=== PATIENT | female | born 1945 | race Caucasian/White ===

== ENCOUNTER → 2024-04-20 06:26 | Day surgery (SDC) | payer MEDICARE, OTHER, SELFPAY ==
[2024-04-20 12:57] LABS: Glucose - Point of Care 118 mg/dl (70-99)
== END ==
LOC: GI 06:26
PROVIDERS: ATTENDING PHYSICIAN Internal Medicine
DX: D12.2 Benign neoplasm of ascending colon (principal); K55.20 Angiodysplasia of colon without hemorrhage; K64.5 Perianal venous thrombosis; K64.8 Other hemorrhoids; K63.89 Other specified diseases of intestine; K92.1 Melena
CPT/HCPCS: 45385; 88305; 82962

== ENCOUNTER → 2024-08-26 11:07 | Outpatient (REF) | payer MEDICARE, OTHER, SELFPAY | LOC: PAVMRI 11:07 | PROVIDERS: ATTENDING PHYSICIAN Physician Assistant Surgical; FAMILY PHYSICIAN Family Medicine | DX: M25.562 Pain in left knee (principal) | CPT/HCPCS: 73721 ==

== ENCOUNTER → 2024-12-28 12:10 | Outpatient (REF) | payer MEDICARE, OTHER, SELFPAY | LOC: RAD 12:10 | PROVIDERS: ATTENDING PHYSICIAN Physician Assistant; FAMILY PHYSICIAN Family Medicine | DX: R05.3 Chronic cough (principal) | CPT/HCPCS: 71046 ==

== ENCOUNTER 2025-02-08 00:05 | Inpatient (IN) | payer MEDICARE, OTHER, SELFPAY ==
[2025-02-07 15:45] VITALS: BP 121/70
[2025-02-07 16:11] LABS: Hematocrit 27.4 % (37.0-47.0); Hemoglobin 8.3 g/dL (12.0-16.0); Mean Corp Hgb Conc. 30.3 g/dL (33.0-37.0); Mean Corpuscular Volume 79.9 fL (81.0-99.0); Nucleated Red Blood Cells % 0 %; Platelet Count 228 10^3/uL (130-400); Red Cell Dist. Width 17.0 % (11.5-14.5)
[2025-02-07 16:16] LABS: INR 1.23; PT 16.1 Sec (11.4-14.6)
[2025-02-07 16:20] LABS: ALT (SGPT) 11 U/L (0-35); AST (SGOT) 16 U/L (14-36); Albumin 4.1 g/dl (3.5-5.0); Alkaline Phosphatase 68 U/L (38-126); Blood Urea Nitrogen 20 mg/dl (7-17); Calcium 9.0 mg/dl (8.4-10.2); Carbon Dioxide 30 mmol/L (22-30); Chloride 106 mmol/L (98-107); Glucose 140 mg/dl (70-99); Potassium 4.0 mmol/L (3.5-5.1); Sodium 139 mmol/L (135-145); Total Protein 6.7 g/dl (6.3-8.2); eGFR > 60.00
[2025-02-07 16:31] LABS: Troponin I < 0.012 ng/ml
--- NOTE | 2025-02-07 20:51 | ED.GENMED ---
History of Present Illness
<Alyssa Finnegan PA-C - Last Filed: 02/08/25 13:12>
General
Chief Complaint: Heart Rate Problem
Source: patient
Exam Limitations: none
Time Seen by Provider: 02/07/25 19:37
Nursing documentation reviewed up to this point in time: agreed with
History of Present Illness
History of Present Illness:
Patient is a 79-year-old female who presents to the emergency department for evaluation of palpitations and left-sided chest discomfort. She reports symptoms have been intermittent throughout today. She describes feeling a pounding in her left
chest and has an intermittent pain that goes from her left chest into her left arm. Patient feels that she has been much more short of breath with little exertion recently. She denies any lightheadedness, diaphoresis. She denies any back pain.
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
After speaking with her engineering professionals she was referred to the emergency department for further evaluation today.
Of note�patient states she has been experiencing the symptoms for a few months now intermittently. She did take a relatively lengthy trip to [place] approximately 2 months ago and experienced rectal bleeding from hemorrhoids. However�at that
time�she was seen in the hospital where she was found to not be anemic and the bleeding is since resolved. She denies any hematochezia or melena. She denies any hemoptysis or hematemesis.
Patient is compliant with Eliquis.
Past History
<Alyssa Finnegan PA-C - Last Filed: 02/08/25 13:12>
Past History
ED Past Medical History: Arrthythmia (Atrial fibrillation), GERD, Hypercholesterolemia, NIDDM and Other (Trigeminal neuralgia, arthritis)
ED Past Surgical History: Cholecystectomy, Gynecological (Tubal ligation) and Orthopedic
Social History
Tobacco: Non-smoker
Alcohol: None
Drug: None
Personal:
Living: with family
Review of Systems
<Alyssa Finnegan PA-C - Last Filed: 02/08/25 13:12>
Review of Systems
Allergies reviewed?: Yes
All Other Systems: ROS reviewed and negative except as documented in HPI and ROS
Phy Exam
<Alyssa Finnegan PA-C - Last Filed: 02/08/25 13:12>
Physical Exam
Physical Exam:
Vitals: Patient's vital signs are stable. Afebrile
General: Patient is well appearing, no acute distress. Nontoxic appearing
Skin: Warm and dry, no rashes or lesions
Head: Normocephalic, atraumatic
Eyes: Sclera nonicteric. EOMs intact. No nystagmus.
Throat: Protecting airway
Neck: Normal ROM, no cervical spine tenderness, no meningismus
Cardiac: Regular rate and rhythm, no murmurs.
Pulm: Normal respiratory effort, no wheezes, rales, rhonchi heard on exam
.
Abdomen: Abdomen soft and nontender
Rectal: External hemorrhoids noted with no evidence of thrombosis. No stool in vault. No active bleeding
Extremities: 1+ pitting edema bilateral lower extremities. 2+ palpable DP pulses bilaterally
Neuro: AAOx3. Grossly intact.
Psychiatric: Normal affect.
Course
<Alyssa Finnegan PA-C - Last Filed: 02/08/25 13:12>
Orders/Labs/Results
Orders:
Orders
02/07/25 15:45
Electrocardiogram (*1) Urgent
Reason for Study: Atrial Fibrillation
EKG- Treatment ONCE
02/07/25 15:59
Complete Blood Count/With Diff Urgent
Comprehensive Metabolic Panel Urgent
NT-proBNP Urgent
Prothrombin Time Urgent
TSH Reflex To Free T4 Urgent
Comment: ADD ON
Troponin I Urgent
02/07/25 20:29
Electrocardiogram (*1) Urgent
Reason for Study: Chest Pain
EKG- Treatment ONCE
02/07/25 20:30
Add On- LAB Urgent
Tests Added?: TSH w/ reflex to T4
Cardiac Monitoring- Treatment ONCE
CR Chest - 2 Views Urgent
Comment:
Reason For Exam: CP, SOB
02/07/25 21:29
Troponin I Urgent
02/07/25 22:27
Complete Blood Count/With Diff Urgent
02/07/25 22:57
Pantoprazole [Protonix IV] 80 mg IV NOW STA
02/07/25 23:00
Flush (0.9% Sodium Chloride) [Flush (Nss)] See Dose Instructions IV PER PROTOCOL
02/07/25 23:41
CARDIOLOGY CONSULT Routine
Consulting Provider: Romeo Swenson
Was physician already notified: No
Reason for consult: chest pain LE swelling
Consult Notification Routine
Specialty to Notify: Cardiology
Date consulting provider notified: 02/08/25
Time consulting provider notified: 07:54
Notified:: Other
Comment: tiger text
02/07/25 23:42
Consult Notification Routine
Specialty to Notify: Gastroenterology
Date consulting provider notified: 02/08/25
Time consulting provider notified: 07:54
Notified:: Other
Comment: tiger text
GASTROINTESTINAL CONSULT Routine
Consulting Provider: Koki Peterson
Was physician already notified: No
Reason for consult: anemia, Hx of hemorrhoidal bleed, gastritis
02/07/25 23:45
Troponin I Q6H
Pantoprazole 80 mg/100 ml Nss [Protonix] 80 mg in 100 ml IV Q10H
02/07/25 23:49
Admit/Transfer Patient As Directed
Co-Sign Provider:
Level of Care: Inpatient admission
Assign to:: Telemetry
Physician / Group: Hospitalist
Diagnosis: chest pain
Reason for Telemetry: Chest Pain syndromes
Date to Stop Telemetry: 02/09/25
Time to Stop Telemetry: 11:00
Reason for Hospitalization: chest pain, anemia
Expected length of stay greater than two midnights?: Yes
ELOS- Estimated Length of Stay in days: 2
I certify the patient meets the requirements for IP care: Yes
PRN Pain Medication Management As Directed
May give lesser potent ordered pain med per pt: Yes
preference::
Protocol:: Medication orders for pain may be administered in a
manner that supports deferring to patient preference
when the pt is:
- Requesting an ordered lesser potent pain medication.
Least to most potent pain medications are defined
as: acetaminophen < NSAID < tramadol < opioids
(morphine, oxycodone, hydromorphone).
- Requesting a lesser dose of the same medication IF
ORDERED.
- Requesting a less intrusive route of administration
if both routes are prescribed by the provider (PO <
IV).
02/07/25 23:51
Code Status As Directed
Resuscitation Status: Full Code
02/08/25
Echo 2D MMode Color/Doppler Routine
Reason for Study: LE swelling
02/08/25 00:55
Acetaminophen [Tylenol] 650 mg PO Q4HPRN PRN
Bisacodyl [Dulcolax] 10 mg RECTAL [id number] PRN
Docusate W/Senna [Senokot-S] 1 tablet PO BIDPRN PRN
Ondansetron Injectable [Zofran] 4 mg IV Q8HPRN PRN
Polyethylene Glycol Powder [Miralax] 17 grams PO DAILYPRN PRN
02/08/25 00:55
Activity As Directed
Activity Level: Out of Bed-Early Mobility
Pneumatic Compression Sleeves As Directed
Type: Knee high
Stool for occult blood [Hemetest Stools] As Directed
Vital Signs As Directed
Frequency: Per unit guidelines
DX Deep Vein Thrombosis Video Routine
02/08/25 06:00
Complete Blood Count/With Diff IN AM
Comprehensive Metabolic Panel IN AM
Ferritin IN AM
Folate IN AM
Iron IN AM
LDH IN AM
Reticulocyte Count IN AM
Total Iron Binding IN AM
Troponin I Q6H
Vitamin B12 IN AM
02/08/25 08:00
Diltiazem Extended Release [Cardizem Cd] 120 mg PO DAILY
Mirabegron Extended Release [Myrbetriq Extended Release] 25 mg PO DAILY
02/08/25 Lunch
NPO
Allow oral meds: Yes
Allow clear liquids: Sips of Clears
NPO with Ice Chips: Yes
02/08/25 22:00
Pravastatin Sodium [Pravachol] 20 mg PO HS
02/09/25 11:00
DC Protocol for Telemetry ONCE
Abnormal Lab Results
02/07/25 02/07/25 02/08/25
15:59 22:27 00:00
RBC 3.43 L 10^6/uL 3.38 L 10^6/uL
(4.20-5.40) (4.20-5.40)
Hgb 8.3 L g/dL 8.0 L g/dL
(12.0-16.0) (12.0-16.0)
Hct 27.4 L % 26.9 L %
(37.0-47.0) (37.0-47.0)
MCV 79.9 L fL 79.6 L fL
(81.0-99.0) (81.0-99.0)
MCH 24.2 L pg 23.7 L pg
(27.0-31.0) (27.0-31.0)
MCHC 30.3 L g/dL 29.7 L g/dL
(33.0-37.0) (33.0-37.0)
RDW 17.0 H % 17.1 H %
(11.5-14.5) (11.5-14.5)
Absolute Monos (auto) 0.7 H 10^3/uL 0.7 H 10^3/uL
(0.1-0.6) (0.1-0.6)
Monocytes % 12.9 H % 12.9 H %
(1.7-9.3) (1.7-9.3)
PT 16.1 H Sec
(11.4-14.6)
BUN 20 H mg/dl
(7-17)
Glucose 140 H mg/dl
(70-99)
Troponin I 0.046 H* D ng/ml
02/07/25 22:27
02/07/25 15:59
Vital Signs
Initial and Last Documented VS:
Initial Vital Signs
Temp Pulse Resp BP Pulse Ox
98.4 F 89 20 121/70 96
02/07/25 15:45 02/07/25 15:45 02/07/25 15:45 02/07/25 15:45 02/07/25 15:45
Last Documented Vital Signs
Temp Pulse Resp BP Pulse Ox
97.6 F 70 16 124/68 95
02/08/25 12:35 02/08/25 12:35 02/08/25 12:35 02/08/25 12:35 02/08/25 11:54
Marcolt;Oj Gutierrez, - Last Filed: 02/08/25 00:21>
Orders/Labs/Results
Orders:
Orders
02/07/25 15:45
Electrocardiogram (*1) Urgent
Reason for Study: Atrial Fibrillation
EKG- Treatment ONCE
02/07/25 15:59
Complete Blood Count/With Diff Urgent
Comprehensive Metabolic Panel Urgent
NT-proBNP Urgent
Prothrombin Time Urgent
TSH Reflex To Free T4 Urgent
Comment: ADD ON
Troponin I Urgent
02/07/25 20:29
Electrocardiogram (*1) Urgent
Reason for Study: Chest Pain
EKG- Treatment ONCE
02/07/25 20:30
Add On- LAB Urgent
Tests Added?: TSH w/ reflex to T4
Cardiac Monitoring- Treatment ONCE
CR Chest - 2 Views Urgent
Comment:
Reason For Exam: CP, SOB
02/07/25 21:29
Troponin I Urgent
02/07/25 22:27
Complete Blood Count/With Diff Urgent
02/07/25 22:57
Pantoprazole [Protonix IV] 80 mg IV NOW STA
02/07/25 23:00
Flush (0.9% Sodium Chloride) [Flush (Nss)] See Dose Instructions IV PER PROTOCOL
02/07/25 23:41
CARDIOLOGY CONSULT Routine
Consulting Provider: Romeo Swenson
Was physician already notified: No
Reason for consult: chest pain LE swelling
Consult Notification Routine
Specialty to Notify: Cardiology
Date consulting provider notified: 02/08/25
Time consulting provider notified: 07:54
Notified:: Other
Comment: tiger text
02/07/25 23:42
Consult Notification Routine
Specialty to Notify: Gastroenterology
Date consulting provider notified: 02/08/25
Time consulting provider notified: 07:54
Notified:: Other
Comment: tiger text
GASTROINTESTINAL CONSULT Routine
Consulting Provider: Koki Peterson
Was physician already notified: No
Reason for consult: anemia, Hx of hemorrhoidal bleed, gastritis
02/07/25 23:45
Troponin I Q6H
Pantoprazole 80 mg/100 ml Nss [Protonix] 80 mg in 100 ml IV Q10H
02/07/25 23:49
Admit/Transfer Patient As Directed
Co-Sign Provider:
Level of Care: Inpatient admission
Assign to:: Telemetry
Physician / Group: Hospitalist
Diagnosis: chest pain
Reason for Telemetry: Chest Pain syndromes
Date to Stop Telemetry: 02/09/25
Time to Stop Telemetry: 11:00
Reason for Hospitalization: chest pain, anemia
Expected length of stay greater than two midnights?: Yes
ELOS- Estimated Length of Stay in days: 2
I certify the patient meets the requirements for IP care: Yes
PRN Pain Medication Management As Directed
May give lesser potent ordered pain med per pt: Yes
preference::
Protocol:: Medication orders for pain may be administered in a
manner that supports deferring to patient preference
when the pt is:
- Requesting an ordered lesser potent pain medication.
Least to most potent pain medications are defined
as: acetaminophen < NSAID < tramadol < opioids
(morphine, oxycodone, hydromorphone).
- Requesting a lesser dose of the same medication IF
ORDERED.
- Requesting a less intrusive route of administration
if both routes are prescribed by the provider (PO <
IV).
02/07/25 23:51
Code Status As Directed
Resuscitation Status: Full Code
02/08/25
Echo 2D MMode Color/Doppler Routine
Reason for Study: LE swelling
02/08/25 00:55
Acetaminophen [Tylenol] 650 mg PO Q4HPRN PRN
Bisacodyl [Dulcolax] 10 mg RECTAL [id number] PRN
Docusate W/Senna [Senokot-S] 1 tablet PO BIDPRN PRN
Ondansetron Injectable [Zofran] 4 mg IV Q8HPRN PRN
Polyethylene Glycol Powder [Miralax] 17 grams PO DAILYPRN PRN
02/08/25 00:55
Activity As Directed
Activity Level: Out of Bed-Early Mobility
Pneumatic Compression Sleeves As Directed
Type: Knee high
Stool for occult blood [Hemetest Stools] As Directed
Vital Signs As Directed
Frequency: Per unit guidelines
DX Deep Vein Thrombosis Video Routine
02/08/25 06:00
Complete Blood Count/With Diff IN AM
Comprehensive Metabolic Panel IN AM
Ferritin IN AM
Folate IN AM
Iron IN AM
LDH IN AM
Reticulocyte Count IN AM
Total Iron Binding IN AM
Troponin I Q6H
Vitamin B12 IN AM
02/08/25 08:00
Diltiazem Extended Release [Cardizem Cd] 120 mg PO DAILY
Mirabegron Extended Release [Myrbetriq Extended Release] 25 mg PO DAILY
02/08/25 Lunch
NPO
Allow oral meds: Yes
Allow clear liquids: Sips of Clears
NPO with Ice Chips: Yes
02/08/25 22:00
Pravastatin Sodium [Pravachol] 20 mg PO HS
02/09/25 11:00
DC Protocol for Telemetry ONCE
Abnormal Lab Results
02/07/25 02/07/25 02/08/25
15:59 22:27 00:00
RBC 3.43 L 10^6/uL 3.38 L 10^6/uL
(4.20-5.40) (4.20-5.40)
Hgb 8.3 L g/dL 8.0 L g/dL
(12.0-16.0) (12.0-16.0)
Hct 27.4 L % 26.9 L %
(37.0-47.0) (37.0-47.0)
MCV 79.9 L fL 79.6 L fL
(81.0-99.0) (81.0-99.0)
MCH 24.2 L pg 23.7 L pg
(27.0-31.0) (27.0-31.0)
MCHC 30.3 L g/dL 29.7 L g/dL
(33.0-37.0) (33.0-37.0)
RDW 17.0 H % 17.1 H %
(11.5-14.5) (11.5-14.5)
Absolute Monos (auto) 0.7 H 10^3/uL 0.7 H 10^3/uL
(0.1-0.6) (0.1-0.6)
Monocytes % 12.9 H % 12.9 H %
(1.7-9.3) (1.7-9.3)
PT 16.1 H Sec
(11.4-14.6)
BUN 20 H mg/dl
(7-17)
Glucose 140 H mg/dl
(70-99)
Troponin I 0.046 H* D ng/ml
02/07/25 22:27
02/07/25 15:59
Vital Signs
Initial and Last Documented VS:
Initial Vital Signs
Temp Pulse Resp BP Pulse Ox
98.4 F 89 20 121/70 96
02/07/25 15:45 02/07/25 15:45 02/07/25 15:45 02/07/25 15:45 02/07/25 15:45
Last Documented Vital Signs
Temp Pulse Resp BP Pulse Ox
97.6 F 70 16 124/68 95
02/08/25 12:35 02/08/25 12:35 02/08/25 12:35 02/08/25 12:35 02/08/25 11:54
<Alyssa Finnegan PA-C - Last Filed: 02/08/25 13:12>
MDM/Problems Addressed
Differential Diagnosis Includes:
Not limited to: Muscle strain, acute coronary syndrome, pericarditis, pneumonia, symptomatic anemia, etc.
MDM/Problems Addressed:
79-year-old female with history as documented presenting with intermittent left chest discomfort and worsening exertional shortness of breath. No clear exertional or pleuritic component to chest discomfort. Patient anticoagulated on Eliquis for
atrial fibrillation. She is hemodynamically stable on arrival. Physical exam as above.
Labs were sent off in triage significant for a new anemia with a hemoglobin of 8.3. Chemistry unremarkable. Initial troponin undetectable with nonischemic EKG. I did perform a rectal exam, although no stool in vault for FOBT. No evidence of active
bleeding on exam.
Given worsening exertional shortness of breath � will plan to trend troponin and check chest x-ray to rule out cardio/pulmonary process. However, given suspected new anemia � concerned that this may be symptomatic anemia. Will closely monitor and
re-assess. Will repeat CBC to confirm anemia.
Update: repeat troponin did elevate to 0.029 although EKG remains nonischemic. Chest x-ray without acute findings.
Hemoglobin decreased slightly to 8.0
At this point � do not suspect cardiac etioogy. Findings most consistent with symptomatic anemia and demand ischemia. Given patient is anticoagulated on Eliquis with unknown source of bleeding � will admit for further monitoring. Blood consent
signed into chart although will hold transfusion at this time. 80 IV Protonix given for possible G.I. source of bleeding. Patient accepted to hospitalist service in stable condition.
Chronic conditions affecting care:
Atrial fibrillation on Eliquis, hypertension, diabetes
Acute Exacerbation and/or Progression of Chronic Illness:
Symptomatic anemia
<Alyssa Finnegan PA-C - Last Filed: 02/08/25 13:12>
*Radiology
Radiology exam reviewed: preliminary read by ED provider (Chest x-ray reviewed by mi-no acute abnormalities) and radiology read reviewed
*Pulse Oximetry
SaO2: 98
Oxygen Mode of Delivery: Room air
Patient hypoxic: no
*EKG
Interpreted by ED Provider?: Yes
EKG Intrepretation Date: 02/07/25
Interpretation: abnormal
Comparison EKG: changes noted
Heart Rate: 79
Rate: normal
Rhythm: sinus
[place]: normal axis
Interval: first degree heart block
QRS Pattern: normal QRS
Ischemia: non-specific ST changes
*Taping Foreman Interpretation
Rate: normal
Interpretation: normal
Heart Rate: 60
Rhythm: sinus
*Critical Care Note
Total Time (30-74mins, 75-104mins- exclusive of procedures): Not Applicable
<Alyssa Finnegan PA-C - Last Filed: 02/08/25 13:12>
Patient Management
Discussion with other providers: Hospitalist
Escalation/DeEscalation of care consider admission/obs:
Admit for suspected symptomatic anemia / further monitoring
ED Attending Note
<Alyssa Finnegan PA-C - Last Filed: 02/08/25 13:12>
-
Portions of this chart may have been created with voice recognition software.� Occasional wrong word or��sound alike� substitutions may have occurred due to the inherent limitations of voice recognition software.
<Oj Gutierrez DO - Last Filed: 02/08/25 00:21>
ED Attending Note
Patient seen and examined by attending physician: Yes
ED Attending Note:
79-year-old female seen in conjunction with the [facility]. I have reviewed and agree with her history and treatment plan. My independent physical exam patient awake and oriented. She is in minimal acute distress. She is to be admitted to the
hospitalist service.
Discharge Plan
Departure
Patient Disposition: Admit
Date of Disposition: 02/07/25
Time of Disposition: 23:20
Presentation/result/management discussed w/ accepting MD/DO: Hospitalist
Discharge Problem:
Symptomatic anemia
Interventions
Interventions:
*Risk Screen - Suicide Last Done: 02/07/25 15:45
*General Assessment Last Done: 02/07/25 15:45
*Neglect/Abuse Screening Last Done: 02/07/25 15:45
*ED- Fall Risk Assessment Last Done: 02/07/25 20:11
*ED COVID-19 Vaccine History Last Done: 02/08/25 00:44
*Nursing Disposition Last Done: 02/08/25 00:44
ED- Cardiac Assessment Last Done: 02/07/25 20:11
ED- Pulmonary Assessment Last Done: 02/07/25 20:11
Discharge Date and Time
Discharge Date/Time: 02/08/25 00:46
[2025-02-07 21:12] VITALS: BP 139/66
[2025-02-07 22:00] VITALS: BP 150/74
[2025-02-07 22:02] LABS: Troponin I 0.029 ng/ml
[2025-02-07 22:34] LABS: Hematocrit 26.9 % (37.0-47.0); Hemoglobin 8.0 g/dL (12.0-16.0); Mean Corp Hgb Conc. 29.7 g/dL (33.0-37.0); Mean Corpuscular Volume 79.6 fL (81.0-99.0); Nucleated Red Blood Cells % 0 %; Platelet Count 213 10^3/uL (130-400); Red Cell Dist. Width 17.1 % (11.5-14.5)
[2025-02-07 22:39] VITALS: BP 139/81
[2025-02-07 23:00] VITALS: BP 148/72
[2025-02-07] MEDS: PROTONIX IV 80 MG IV (23:19)
[2025-02-07] MEDS: PROTONIX 100 IV (23:51)
--- NOTE | 2025-02-07 23:52 | HPS.HSE ---
Family Physician
-
Family Physician: Leonor Griffin MD
Chief Complaint
-
chest pain, LE swelling
History of Present Illness
79yo F with PMHX of Afib on ELiquis, HTN, GERD, hemorrhoids, urinary retention, HLD came with episodes of L chest pain starrted on the day of admission and progressive b/l LE swelling. Found new anemia. PAtient reported being seen by doctor in
back in October 2024 for frequent hemorrhoidal bleeding, but was told that she was not anemic at that time. Colonoscopy recently witgh few polyps removed, EGD >5years ago due to GERD without reported bleeding.
Medical History
Past Medical History
Past Medical History: Reports Other
Additional Past Medical History:
see HPI
Past Surgical History: Reports None
Social History
Tobacco: Non-smoker
Alcohol: None
Drug: None
Family History
Family History: Not pertinent
Allergies / Home Medications
Allergies reflects when Allergies were last updated in [employer].
Home Medications with original date entered in [employer]
Allergy/Medication List:
Allergies
Allergy/AdvReac Type Severity Reaction Status Date / Time
No Known Allergies Allergy Verified 02/07/25 15:54
Home Medications
cholecalciferol (vitamin D3) 50 mcg (2,000 unit) capsule (Vitamin D3) 2,000 unit PO DAILY Supplement 01/14/15
pantoprazole 40 mg tablet,delayed release 40 mg PO DAILY@0700 Gastrointestinal issue 04/16/20
apixaban 5 mg tablet (Eliquis) 5 mg PO BID ##0 08/01/20
acetaminophen 650 mg tablet,extended release 1,300 mg PO TIDPRN PRN pain 11/09/22
amitriptyline 75 mg tablet 75 mg PO HS 11/09/22
diltiazem HCl 120 mg capsule,extended release 24 hr, controlled 120 mg PO DAILY 11/09/22
estradiol 0.01% (0.1 mg/gram) vaginal cream (Estrace) 1 g vaginal [id number] 11/09/22
mirabegron 25 mg tablet,extended release 24 hr (Myrbetriq) 25 mg PO DAILY 11/09/22
pravastatin 20 mg tablet 20 mg PO HS 11/09/22
sennosides 8.6 mg tablet (senna) 2 tab PO PRN PRN Conastipation 11/09/22
Review of Systems
-
A 12 point ROS was completed and negative except as noted: Yes
Constitutional: Reports See HPI
Physical Exam
Vital Signs
Vital Signs
Temp Pulse Resp BP Pulse Ox
98.4 F 89 20 139/81 98
02/07/25 15:45 02/07/25 22:39 02/07/25 22:15 02/07/25 22:39 02/07/25 22:53
Physical Exam
General: Well Developed, Well Nourished and No Apparent Distress
HEENT: NormoCephalic, Anicteric and Moist mucous membranes
Respiratory: Clear; No Rhonchi or Crackles
Cardiac: S1/S2 and Regular Rhythm; No Tachycardia
GI: Soft, Non Tender and Non Distended
Genito-urinary: No costovertebral tender
Musculoskeletal: No Clubbing, No Cyanosis, Edema, Left Lower Extremity and Edema, Right Lower Extremity
Skin: Warm
Neuro: Awake, Alert, Oriented and AO x 3
Psych: Calm
Laboratory Results
-
02/07/25 22:27
02/07/25 15:59
Laboratory Results
PT 16.1 Sec (11.4-14.6) H 02/07/25 15:59
INR 1.23 02/07/25 15:59
Total Bilirubin 0.5 mg/dl (0.2-1.3) 02/07/25 15:59
AST 16 U/L (14-36) 02/07/25 15:59
ALT 11 U/L (0-35) 02/07/25 15:59
Alkaline Phosphatase 68 U/L (38-126) 02/07/25 15:59
Troponin I 0.029 ng/ml D 02/07/25 21:29
Data Reviewed
-
Diagnostic Radiology: Report Reviewed by me
Lab Data: Labs Reviewed by me
Impression/Plan
-
A/P:
#Chest pain, probably non cardiac
#b/l LE swelling
XR chest w/o acute pathology
concern for anemia-induced
serial trop
Cardio consult
Echo
telemetry
#Anemia, microcytic
new
NPO
no stool in vault in ED to check for FOBT
Anemia w/u
serial CBC
PPI drip, GI cosnult, hold anticoagulation and antiplatelets at this time
#Essential HTN
#HLD
#Insomnia
#Afib, paroxysmal
cont home meds
DVT ppx SCDs
Full code
I have spent at least 79min admitting the patient
[2025-02-08] VITALS (15 sets, daily range): BP systolic 115–161; BP diastolic 61–81; BMI 44.1
[2025-02-08 00:53] LABS: Troponin I 0.046 ng/ml
--- NOTE | 2025-02-08 04:58 | TRANSFER ---
Pt transferred to 3W from ed via stretcher. Pt ambulated to bed using own quad cane. BP 161/81 T 98.4 P 89 R 18 O2 96. Pt oriented to room, call [facility] within reach, plan of care ongoing.
[2025-02-08 06:29] LABS: Hematocrit 26.8 % (37.0-47.0); Hemoglobin 8.0 g/dL (12.0-16.0); Mean Corp Hgb Conc. 29.9 g/dL (33.0-37.0); Mean Corpuscular Volume 80.0 fL (81.0-99.0); Nucleated Red Blood Cells % 0 %; Platelet Count 215 10^3/uL (130-400); Red Cell Dist. Width 17.1 % (11.5-14.5); Reticulocyte Count 1.5 % (0.4-2.8)
[2025-02-08 06:42] LABS: ALT (SGPT) 10 U/L (0-35); AST (SGOT) 16 U/L (14-36); Albumin 3.7 g/dl (3.5-5.0); Alkaline Phosphatase 57 U/L (38-126); Blood Urea Nitrogen 16 mg/dl (7-17); Calcium 8.5 mg/dl (8.4-10.2); Carbon Dioxide 28 mmol/L (22-30); Chloride 108 mmol/L (98-107); Estimated Creatinine Clearance 79 ml/min; Glucose 122 mg/dl (70-99); Iron 28 ug/dl (37-170); LDH 187 U/L (120-246); Potassium 3.8 mmol/L (3.5-5.1); Sodium 139 mmol/L (135-145); Total Protein 6.2 g/dl (6.3-8.2); eGFR > 60.00
[2025-02-08 06:47] LABS: Troponin I 0.038 ng/ml
[2025-02-08 06:52] LABS: Total Iron Binding Capacity 370 ug/dl (265-497)
[2025-02-08 07:18] LABS: Ferritin 5.5 ng/ml (11.1-264.0)
[2025-02-08 07:50] LABS: Folate 14.6 ng/ml (2.76-20); Vitamin B12 363 pg/ml (239-931)
--- NOTE | 2025-02-08 08:06 | CON.CAR ---
Addendum entered and electronically signed by Oj Marin MD 02/08/25 11:08:
Patient seen and examined in collaboration with CONDENSER OPERATOR; agree with below.
- 79-year-old female with paroxysmal atrial fibrillation (on Eliquis), hypertension, hyperlipidemia, diabetes, ANTHONY, and morbid obesity presenting with chest discomfort and shortness of breath; found to have a hemoglobin of 8.0.
- Patient's symptoms are most likely secondary to anemia; minimal troponin elevation is likely due to acute nonischemic myocardial injury in the setting of significant anemia.
- Proceed with GI scoping as scheduled; hold Eliquis.
- nurse monitoring.
- Receiving blood today as per primary team.
- Update echocardiogram today.
- Eventual stress test as outpatient.
- Will follow.
Original Note:
Consultation
Consultation Request
Date/Time Consultation Requested: 02/07/25 0981
Date/Time Consultation Performed: 02/08/25 0805
Requesting Provider: Dr. Villalobos
Performing Provider: Sana CASTANO for Dr. Marin
Reason for Consultation: chest discomfort, swelling
Medical History
-
Chief Complaint: chest discomfort, SOB, LE swelling, palpitations
History of Present Illness:
79 y/o female (cardiology patient of Dr. Valadez) with PAF on Eliquis, dyslipidemia, LE edema, DM, ANTHONY on CPAP, HTN, and obesity who is here for evaluation of multiple symptoms including KAUR, chest discomfort, worsened LE swelling. She is seen to
be anemic with hgb 8.0. She tells me she was in [place] for an extended trip in October and November and had rectal bleeding that was felt to be from hemorrhoids in the hospital there and she was told she was not anemic at that time. That has since
resolved. Her chest discomfort has been present for about 1 week and feels like waves of pressure over her left chest and shoulder. It is not worse with exertion. It is present most of the time, but not currently. She is in no distress at the time
of my assessment.
Past Medical History
Past Medical History: Arrhythmias, HTN, Hypercholesterolemia, NIDDM and Other (as above)
Social History
Tobacco: Non-Smoker
Family History
Family History: CAD
Allergies / Home Medications
Allergy/AdvReac Type Severity Reaction Status Date / Time
No Known Allergies Allergy Verified 02/07/25 15:54
�Medication �Instructions �Recorded �Confirmed �Type
cholecalciferol (vitamin D3) 50 2,000 unit PO DAILY Supplement 01/14/15 12/08/22 History
mcg (2,000 unit) capsule (Vitamin
D3)
pantoprazole 40 mg tablet,delayed 40 mg PO DAILY@0700 04/16/20 12/08/22 History
release Gastrointestinal issue
apixaban 5 mg tablet (Eliquis) 5 mg PO BID ##0 08/01/20 12/08/22 Rx
acetaminophen 650 mg 1,300 mg PO TIDPRN PRN pain 11/09/22 12/08/22 History
tablet,extended release
amitriptyline 75 mg tablet 75 mg PO HS 11/09/22 12/08/22 History
diltiazem HCl 120 mg 120 mg PO DAILY 11/09/22 12/08/22 History
capsule,extended release 24 hr,
controlled
estradiol 0.01% (0.1 mg/gram) 1 g vaginal [id number] 11/09/22 12/08/22 History
vaginal cream (Estrace)
mirabegron 25 mg tablet,extended 25 mg PO DAILY 11/09/22 12/08/22 History
release 24 hr (Myrbetriq)
pravastatin 20 mg tablet 20 mg PO HS 11/09/22 12/08/22 History
sennosides 8.6 mg tablet (senna) 2 tab PO PRN PRN Conastipation 11/09/22 12/08/22 History
Review of Systems
-
History Source: Patient
All other systems: Negative unless noted
Constitutional: Weight Gain
Respiratory: Trouble Breathing
Cardiac: Chest Pain and Palpitations
Musculoskeletal: Edema
Physical Exam
Vital Signs
Temp Pulse Resp BP Pulse Ox
97.7 F 85 18 144/66 96
02/08/25 03:26 02/08/25 03:26 02/08/25 03:26 02/08/25 03:26 02/08/25 03:26
Lab Results
02/08/25 06:00
02/08/25 06:00
Troponin I 0.038 ng/ml H* 02/08/25 06:00
Jcc-C-Iockkvcubkv Pept 149 pg/ml 02/07/25 15:59
Physical Exam
General: Well Developed and No Apparent Distress
HEENT: Normocephalic and Anicteric
Respiratory: Clear and Non Labored Respirations
Cardiac: Regular Rhythm
Musculoskeletal: Edema (+1-2 BLE edema)
Skin: Warm and Dry
Neuro: AO x 3
Psych: Calm
Impression / Plan
-
Anemia:
-GI is consulted. Patient tells me there are plans for endoscopy. Eliquis held in that setting.
LE edema:
-she has chronic LE edema, which has worsened of recent. She has not been wearing her compression hose, which have helped in the past. Obtain echo. She is on Eliquis as OP.
PAF:
-stable in SR
-follow telemetry
-continue diltiazem
-Eliquis held for anemia- resume when safe. [id number] score is 5 for age, female, HTN, DM.
Chest pain: non currently
-not worse with exertion, EKG stable
-check echo
-trop as below
HTN:
-stable
-continue diltiazem
Abnormal troponin: 0.046
-suspect acute, non-ischemic myocardial injury in setting of anemia
-check echo
Data Reviewed
-
EKG: Tracing Personally Visualized and interpreted (SR with 1st degree AVB)
Radiology: Report Reviewed by me (CXR: Normal heart size with suggestion of elevated pulmonary venous pressures. Severe tortuosity of the descending thoracic aorta which appears chronic and unchanged. Mild chronic elevation of the anterior right
hemidiaphragm. Mild subsegmental atelectasis and scarring in both lower lungs.)
Medical Tests (Nuc Med, Echo etc): Report Reviewed by me (Echo 01/24/20: EF 60-65%, no sig valve disease. Normal lakeisha 2018)
Labs: Labs Reviewed by me
[2025-02-08] MEDS: CARDIZEM CD 120 MG PO (08:38)
[2025-02-08] MEDS: MYRBETRIQ EXTENDED RELEASE 25 MG PO (08:39)
--- NOTE | 2025-02-08 09:56 | W.PN.HOSP.TC ---
Today's Communication/Plan
-
PPI drip
NPO
GI consulted
transfuse 1 unit PRBC
TTE
Cardiology consulted
Eliquis on hold
resume lower dose home Elavil
Assessment / Plan
Assessment / Plan
Ms. Amarilis Ramey is a 79yo F with PMHX of Afib on Eliquis, HTN, GERD, hemorrhoids, urinary retention, HLD came with episodes of left sided chest pain and progressive b/l LE swelling. She is found to be anemic.
CXR
IMPRESSION:
1. Normal heart size with suggestion of elevated pulmonary venous pressures.
2. Severe tortuosity of the descending thoracic aorta which appears chronic and unchanged.
3. Mild chronic elevation of the anterior right hemidiaphragm.
4. Mild subsegmental atelectasis and scarring in both lower lungs.
Chest Pain/ Palpitations
Lower Extremity Swelling
Concern for symptomatic anemia
-Troponin peaked at 0.046
-continue to monitor on telemetry
-TTE ordered
-given report of chest pain with Hg 8 and elevated Troponoin --> I will transfuse 1 unit of blood
-Cardiology consulted
#Anemia, microcytic
Iron Deficiency Anemia
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
-IV PPI gtt initiated
-GI consult
-NPO
#Essential HTN
#HLD
#Insomnia
#Afib, paroxysmal
-hold ELECTRONIC GLUING MACHINE OPERATOR Eliquis
DVT ppx SCDs
Full code
51 minutes spent on patient care
Anticipated Discharge: 24 - 48 hours
Subjective/Interval History
-
Date of Service: February 08, 2025
denies chest pain this morning
denies palpitations this morning
Objective Data
-
Labs:
Laboratory Results
02/07/25 02/08/25
22:27 06:00
WBC 5.7 5.4
Hgb 8.0 L 8.0 L
Hct 26.9 L 26.8 L
Plt Count 213 215
Sodium 139
Potassium 3.8
Chloride 108 H
Carbon Dioxide 28
BUN 16
Creatinine 0.6
Glucose 122 H
Calcium 8.5
Total Bilirubin 0.5
AST 16
ALT 10
Alkaline Phosphatase 57
Vital Signs:
Vital Signs
Temp Pulse Resp BP Pulse Ox
97.9 F 76 18 125/81 97
02/08/25 07:35 02/08/25 08:38 02/08/25 07:35 02/08/25 08:38 02/08/25 07:35
Review of Systems
-
History Source: Patient
All other systems: Reviewed and negative
Physical Exam
-
General: No Apparent Distress
HEENT: PERRLA
Respiratory: Clear to Auscultation; Negative Wheezes
Cardiac: Regular Rhythm and S1/S2
GI: Soft and Nontender
Musculoskeletal: No Edema
Skin: Warm and Dry; Negative Rash
Neuro: AO x 3
Psych: Calm
Data Reviewed
-
Diagnostic Radiology: Report Reviewed by me
Labs: Labs Reviewed by me
[2025-02-08] MEDS: PROTONIX 100 IV (10:11)
--- NOTE | 2025-02-08 12:47 | CON.GI ---
Addendum entered and electronically signed by Lisa Pink DO 02/08/25 14:27:
The patient was seen and examined by me independently in collaboration with the nurse practitioner.
Past medical history/social history/medications/allergies/family history reviewed.
Lab data and imaging data reviewed.
Amarliis Ramey is a 79 y.o. female with past medical history of hemorrhoids, A-fib on Eliquis, hyperlipidemia, diabetes, GERD, hiatal hernia, chronic constipation admitted with chest discomfort found to have mild elevation in her troponins as well as
new anemia, hemoglobin 8, MCV 79, BUN 16, ferritin 5.5, percent saturation 7, total iron 28. Last hemoglobin on file for her was October 2023 at which time her hemoglobin was 14.2. She denies any melena, had been having bleeding from her
hemorrhoids, a prolonged flare while she was traveling abroad, went to a hospital in the , states that her hemoglobin was normal at that time. Since being on her bowel regimen she has not had any additional issues with her hemorrhoids.
Colonoscopy in April with a few nonbleeding AVMs in the right colon, 5 tubular adenomas and internal hemorrhoids, given a 3-year recall. No prior endoscopy. Eliquis was held on admission.
A/P:
-Okay for diet
-d/c PPI gtt, change to IV PPI BID
-NPO PMN for EGD tomorrow
-if hemoglobin stable following EGD, can discuss repeat colonoscopy as outpatient as well as VCE to assess for small bowel AVMs, depending on findings on EGD
-transfuse for Hgb <8
-ECHO today
-trops trending down
Original Note:
Consultation
-
Date/Time Consultation Requested: 02/07/25 1065
Date/Time Consultation Performed: 02/08/25- 1245
Requesting Provider: Len Villalobos MD
Performing Provider: EYAD Cisneros, Tabitha Pink,
Reason for Consultation: anemia
Medical History
Chief Complaint / HPI
History of Present Illness:
Pt is a 79yo with hx Afib on Eliquis, NIDDM, GERD, hyperlipidemia, osteo, TMJ, HH, hip fx, covid, trigeminal neuralgia, osteopenia, parathyroid, colon polyps, chronic constipation, non bleeding AVM right colon, hemorrhoids with admission with chest
pain and palpitations with feeling of bounding in chest. She also noted LE swelling. On admission noted with hb g 8.3 down from 12.8 in 2022 and OP labs hbg 14.2 in 2023 and iron studies c/w iron deficiency. Rectal exam in ER with no stool in rectal
vault with external hemorrhoids and no active bleeding.
In review with patient she admits to recent 50 day trip to [place]. During trip she had cold symptoms but also had weeks of rectal bleeding with ER visit and recall normal hbg. Bleeding has since improved now with chest pain with drop in blood
count. She has been seen by cardiology and cleared for GI testing. She admits to recent bleeding and constipation. She did start regiment with Miralax, senna and metamucil with some improvement. She denies odynophagia, dysphagia, GERD, nausea,
abdominal pain, diarrhea, or black stools.
-Colonoscopy 04/20/24:� Hemorrhoids on perianal exam.� Normal TI.� A few small AVMs without evidence of bleeding found to the hepatic flexure and ascending colon.� Mild melanosis at the hepatic flexure, ascending colon and cecum.� 5 small tubular
adenomas in the ascending colon.� Nonbleeding internal hemorrhoids.� Recall 3 years
-Abd x-ray 07/06/2023: small to moderate volume widespread colonic stool
-Colonoscopy 2018: Dr Garcia, normal. Repeat in 10 years for CRC screening.
Past Medical History
Past Medical History: Arrhythmias (PAF), GERD, Hypercholesterolemia, NIDDM and Other (osteo, TMJ, HH, hip fx, covid, osteopenia, parathyroid, colon polyps, chronic constipation, non bleeding AVM right colon, hemorrhoids )
Past Surgical History: Cholecystectomy, Gynecological (D+C, tubal ) and Orthopedic (hip fx, knee replacement L5-S2 FLORESITA, arm nerve surgery, nasal surgery )
Social History
Tobacco: Non-Smoker
Alcohol: None
Drug: None
Personal:
Living: With Family
Employment: Retired
Family History
Family History: Other (no family hx colon Ca or polyps)
Allergies / Home Medications
Allergy/AdvReac Type Severity Reaction Status Date / Time
No Known Allergies Allergy Verified 02/07/25 15:54
�Medication �Instructions �Recorded
cholecalciferol (vitamin D3) 50 2,000 unit PO DAILY Supplement 01/14/15
mcg (2,000 unit) capsule (Vitamin
D3)
pantoprazole 40 mg tablet,delayed 40 mg PO DAILY@0700 04/16/20
release Gastrointestinal issue
apixaban 5 mg tablet (Eliquis) 5 mg PO BID ##0 08/01/20
acetaminophen 650 mg 1,300 mg PO 2XD PRN pain 11/09/22
tablet,extended release
amitriptyline 75 mg tablet 75 mg PO HS 11/09/22
diltiazem HCl 120 mg 120 mg PO DAILY 11/09/22
capsule,extended release 24 hr,
controlled
estradiol 0.01% (0.1 mg/gram) 1 g vaginal 1XD 11/09/22
vaginal cream (Estrace)
mirabegron 25 mg tablet,extended 25 mg PO DAILY 11/09/22
release 24 hr (Myrbetriq)
sennosides 8.6 mg tablet (senna) 2 tab PO PRN PRN Conastipation 11/09/22
Review of Systems
-
History Source: Patient
Constitutional: Reports Weight Gain (few lbs )
EENT: Reports No Symptoms
Respiratory: Reports No Symptoms
Cardiac: Reports No Symptoms
Abdomen/GI: Reports Constipated and Bloody Stools (several weeks ago with hemorrhoid now improved )
: Reports No Symptoms
Musculoskeletal: Reports No Symptoms
Skin: Reports Other (LE swelling)
Neurological: Reports No Symptoms
Endocrine: Reports No Symptoms
Hematologic/Lymphatic: Reports Bleeding
Vital Signs
Temp Pulse Resp BP Pulse Ox
97.6 F 70 16 124/68 95
02/08/25 12:35 02/08/25 12:35 02/08/25 12:35 02/08/25 12:35 02/08/25 11:54
Physical Exam
Exam
General: Well Developed, Well Nourished and No Apparent Distress
HEENT: Normocephalic and Anicteric
Respiratory: Clear
Cardiac: Regular Rhythm
GI: Soft, Non Tender and Non Distended
Rectal: Other (ER with no stool in rectal vault with external hemorrhoids and no active bleeding. )
Musculoskeletal: No Clubbing and No Cyanosis
Skin: Warm and Dry
Neuro: Awake, Alert and AO x 3
Psych: Calm
Results
WBC 5.4 10^3/uL (4.8-10.8) 02/08/25 06:00
Hgb 8.0 g/dL (12.0-16.0) L 02/08/25 06:00
Hct 26.8 % (37.0-47.0) L 02/08/25 06:00
MCV 80.0 fL (81.0-99.0) L 02/08/25 06:00
Plt Count 215 10^3/uL (130-400) 02/08/25 06:00
Absolute Neuts (auto) 3.2 10^3/uL (1.4-6.5) 02/08/25 06:00
PT 16.1 Sec (11.4-14.6) H 02/07/25 15:59
INR 1.23 02/07/25 15:59
Sodium 139 mmol/L (135-145) 02/08/25 06:00
Potassium 3.8 mmol/L (3.5-5.1) 02/08/25 06:00
Chloride 108 mmol/L (98-107) H 02/08/25 06:00
Carbon Dioxide 28 mmol/L (22-30) 02/08/25 06:00
BUN 16 mg/dl (7-17) 02/08/25 06:00
Creatinine 0.6 mg/dL (0.6-1.0) 02/08/25 06:00
Calcium 8.5 mg/dl (8.4-10.2) 02/08/25 06:00
Total Bilirubin 0.5 mg/dl (0.2-1.3) 02/08/25 06:00
AST 16 U/L (14-36) 02/08/25 06:00
ALT 10 U/L (0-35) 02/08/25 06:00
Alkaline Phosphatase 57 U/L (38-126) 02/08/25 06:00
Diagnostic Image Results:
-Abd x-ray 07/06/2023: small to moderate volume widespread colonic stool
Prior GI Procedures:
EGD: none
-Colonoscopy 04/20/24:� Hemorrhoids on perianal exam.� Normal TI.� A few small AVMs without evidence of bleeding found to the hepatic flexure and ascending colon.� Mild melanosis at the hepatic flexure, ascending colon and cecum.� 5 small tubular
adenomas in the ascending colon.� Nonbleeding internal hemorrhoids.� Recall 3 years
-Colonoscopy 2018: Dr Garcia, normal. Repeat in 10 years for CRC screening.
Assessment / Plan
-
Pt is a 79yo with hx Afib on Eliquis, NIDDM, GERD, hyperlipidemia, osteo, TMJ, HH, hip fx, covid, trigeminal neuralgia, osteopenia, parathyroid, colon polyps, chronic constipation, non bleeding AVM right colon, hemorrhoids with admission with chest
pain and palpitations with feeling of bounding in chest. She also noted LE swelling. On admission noted with hb g 8.3 down from 12.8 in 2022 and OP labs hbg 14.2 in 2023 and iron studies c/w iron deficiency. Rectal exam in ER with no stool in rectal
vault with external hemorrhoids and no active bleeding. In review with patient she admits to recent 50 day trip to [place]. During trip she had cold symptoms but also had weeks of rectal bleeding with ER visit and recall normal hbg. Bleeding has
since improved now with chest pain with drop in blood count. She has been seen by cardiology and cleared for GI testing.
-Colonoscopy 04/20/24:� Hemorrhoids on perianal exam.� Normal TI.� A few small AVMs without evidence of bleeding found to the hepatic flexure and ascending colon.� Mild melanosis at the hepatic flexure, ascending colon and cecum.� 5 small tubular
adenomas in the ascending colon.� Nonbleeding internal hemorrhoids.� Recall 3 years
-Abd x-ray 07/06/2023: small to moderate volume widespread colonic stool
-Colonoscopy 2018: Dr Garcia, normal. Repeat in 10 years for CRC screening
-new iron deficiency anemia
-recent prolonged rectal bleeding with hemorrhoids
-chronic constipation some improvement iwth Miralax, senna and Metamucil with some improvement.
-afib on Eliquis prior to admission
-hx right colon non bleeding AVM/colon polyps
-chest pain on admission/mild trop elevation
other med problems:
-NIDDM
-GERD
- hyperlipidemia
-osteo
-TMJ/trigeminal neuralgia,
-HH
- osteopenia
-parathyroid issues
PLAN:
etiology of new LAVINIA relate to recent prolonged hemorrhoidal bleeding vs other
no current signs of aggressive bleeding
plan for EGD in am-- cleared by cards to proceed
she recently completed colon last fall
if neg consider capsule
if persistent anemia consider repeat OP colon with hx non bleeding AVM's
trend hbg
change PPI to BID
ok for diet today NPO in AM
resume miralax and senna-- cont measures for hemorroids- limit toilet time, straining etc
if recurrent rectal bleeding consider colorectal eval
add IV iron during admission -will start in AM as current getting blood transfusion
OP follow with Dr. Pink
.
-
-
Thank you for consultation and allowing me to participate in the patient's care. Please call the [facility] director GI physician during the after hours with any questions or concerns.
[2025-02-08] MEDS: MIRALAX 17 GRAMS PO (16:33)
--- NOTE | 2025-02-08 16:39 | PTCARENOTE ---
pt received 1unit of PRBC at 1220. Type and screen was done prior to infusion. Vitals done as appropriate, two RN check before admin, and RN stayed with patient for first 15 minutes to ensure pt tolerated appropriately. Infusion finished within time
frame and pt had no complaints throughout. plan of care ongoing.
[2025-02-08 18:03] LABS: Glucose - Point of Care 195 mg/dl (70-99)
[2025-02-08] MEDS: NOVOLOG FLEXPEN-LOW RESISTANCE 1 UNITS SC (18:32)
[2025-02-08 21:03] LABS: Glucose - Point of Care 174 mg/dl (70-99)
[2025-02-08] MEDS: PRAVACHOL 20 MG PO (22:04)
[2025-02-08] MEDS: PROTONIX IV 40 MG IV (22:04)
[2025-02-08] MEDS: ELAVIL 50 MG PO (22:04)
[2025-02-08] MEDS: SENOKOT 8.6 MG PO (22:04)
[2025-02-08] MEDS: NSS (PRESERVATIVE FREE) 10 ML IV (22:04)
[2025-02-09] VITALS (8 sets, daily range): BP systolic 100–153; BP diastolic 63–78; PULSE 80
[2025-02-09 05:37] LABS: Hematocrit 28.7 % (37.0-47.0); Hemoglobin 8.7 g/dL (12.0-16.0); Mean Corp Hgb Conc. 30.3 g/dL (33.0-37.0); Mean Corpuscular Volume 81.1 fL (81.0-99.0); Platelet Count 201 10^3/uL (130-400); Red Cell Dist. Width 17.3 % (11.5-14.5)
[2025-02-09 06:32] LABS: Blood Urea Nitrogen 21 mg/dl (7-17); Calcium 8.4 mg/dl (8.4-10.2); Carbon Dioxide 29 mmol/L (22-30); Chloride 107 mmol/L (98-107); Estimated Creatinine Clearance 67 ml/min; Glucose 148 mg/dl (70-99); Magnesium 2.1 mg/dl (1.6-2.3); Potassium 4.1 mmol/L (3.5-5.1); Sodium 138 mmol/L (135-145); eGFR > 60.00
[2025-02-09 07:58] LABS: Glucose - Point of Care 149 mg/dl (70-99)
[2025-02-09] MEDS: NOVOLOG FLEXPEN-LOW RESISTANCE SC ×2 (08:23→12:47)
[2025-02-09] MEDS: NSS (PRESERVATIVE FREE) 10 ML IV ×2 (08:24→20:30)
[2025-02-09] MEDS: CARDIZEM CD 120 MG PO (08:25)
[2025-02-09] MEDS: PROTONIX IV 40 MG IV ×2 (08:25→20:30)
[2025-02-09] MEDS: MYRBETRIQ EXTENDED RELEASE 25 MG PO (08:25)
--- NOTE | 2025-02-09 08:27 | PN.CDI ---
CDI
- -
CDI:
Physician Documentation Request
Admit Date: 02/08/25 00:05
Dear Doctor Wilton,
Please review the following and provide your response in the progress notes.
Clinical Indicators:
Sales And Marketing Professional, 02/08
#Chart reviewed due to pt with BMI > 40 morbidly obese range.
#...CBW: 218 lbs BMI 44.0 morbidly obese range (02/08)
Please provide an associated diagnosis related to the abnormal BMI, such as:
BMI >40.0 obese
Other (please specify)
BMI > or = to 40
Overweight
Obesity:
Due to excess calories
Drug induced
Due to other cause
Severe or morbid obesity:
With alveolar hypoventilation (Obesity hypoventilation syndrome)
Without alveolar hypoventilation
Use of terms such as suspected, likely, concern for, or probable (associated with a specific diagnosis that is being evaluated, monitored, or treated as if it exists) are acceptable and can be coded in the inpatient setting, when documented at the
time of discharge.
Thank you,
Anca Turner RN BSN CCDS
CDI Specialist
Please contact via tiger text
Please use your independent medical judgment in providing your response.
[2025-02-09 08:47] LABS: Glycohemoglobin (HgbA1c) 7.1 % (4.0-5.6)
--- NOTE | 2025-02-09 09:07 | W.PN.HOSP.TC ---
Today's Communication/Plan
-
see plan
Assessment / Plan
Assessment / Plan
Ms. Amarilis Ramey is a 79yo F with PMHX of Afib on Eliquis, HTN, GERD, hemorrhoids, urinary retention, HLD came with episodes of left sided chest pain and progressive b/l LE swelling. She is found to be anemic.
CXR
IMPRESSION:
1. Normal heart size with suggestion of elevated pulmonary venous pressures.
2. Severe tortuosity of the descending thoracic aorta which appears chronic and unchanged.
3. Mild chronic elevation of the anterior right hemidiaphragm.
4. Mild subsegmental atelectasis and scarring in both lower lungs.
TTE 02/08/25
CONCLUSIONS
Left ventricular ejection fraction is 70-75%, by visual assessment. Normal
regional wall motion.
Normal right ventricular size and function.
Very mild aortic stenosis; peak/mean gradients 12/6 mmHg, calculated BRAYDEN is 1.9
cm2.
No prior study available for comparison.
Chest Pain/ Palpitations
Lower Extremity Swelling
Concern for symptomatic anemia
-Troponin peaked at 0.046
-continue to monitor on telemetry
-TTE results above, no WMA
-s/p 1 unit PRBC on 02/08 with Hg increased from 8 to 8.7 this AM
-Cardiology consulted
#Anemia, microcytic
Iron Deficiency Anemia
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
-IV PPI BID
-GI consult appreciated
-NPO for EGD today
#Essential HTN
#HLD
#Insomnia
#Afib, paroxysmal
-hold MOBILE LOUNGE DRIVER Eliquis, F/U with GI when OK to resume
DVT ppx SCDs
Full code
51 minutes spent on patient care
Anticipated Discharge: Within 24 hours
Subjective/Interval History
-
Date of Service: February 09, 2025
feeling well
denies feeling different post transfusion, but hasn't been moving around as much
Objective Data
-
Labs:
Laboratory Results
02/09/25
05:29
WBC 6.8
Hgb 8.7 L
Hct 28.7 L
Plt Count 201
Sodium 138
Potassium 4.1
Chloride 107
Carbon Dioxide 29
BUN 21 H
Creatinine 0.7
Glucose 148 H
Calcium 8.4
Vital Signs:
Vital Signs
Temp Pulse Resp BP Pulse Ox
98.6 F 81 14 130/71 93
02/09/25 07:49 02/09/25 07:49 02/09/25 07:49 02/09/25 07:49 02/09/25 07:49
I&O
02/08/25 02/09/25 02/10/25
06:59 06:59 06:59
Intake Total 730 / 730
Balance 730 / 730
Review of Systems
-
History Source: Patient
All other systems: Reviewed and negative
Physical Exam
-
General: No Apparent Distress
HEENT: PERRLA
Respiratory: Clear to Auscultation; Negative Wheezes
Cardiac: Regular Rhythm and S1/S2
GI: Soft and Nontender
Musculoskeletal: No Edema
Skin: Warm and Dry; Negative Rash
Neuro: AO x 3
Psych: Calm
Data Reviewed
-
Diagnostic Radiology: Report Reviewed by me
Labs: Labs Reviewed by me
--- NOTE | 2025-02-09 09:16 | W.PN.CD ---
Addendum entered and electronically signed by Oj Marin MD 02/09/25 10:10:
Patient seen and examined in collaboration with MANAGER MARKET RESEARCH; agree with below.
- Patient to undergo endoscopy by GI today.
- Resume Eliquis once cleared by GI.
- Cardiology will remain available on an as-needed basis; patient can follow-up as outpatient.
Original Note:
Today's Communication / Plan
-
Continue diltiazem. Resume Eliquis when safe. Endoscopy planned today for evaluation of anemia.
Impression / Plan
-
Anemia:
-PRBC given, Eliquis held
-GI is on board. Endoscopy is planned for today.
LE edema:
-looks better today on my review. She reports it is better when she wears compression.
-Echo : Left ventricular ejection fraction is 70-75%, by visual assessment. Normal regional wall motion. Normal right ventricular size and function. Very mild aortic stenosis; peak/mean gradients 12/6 mmHg, calculated BRAYDEN is 1.9 cm2.
PAF:
-stable in SR
-follow telemetry
-continue diltiazem
-Eliquis held for anemia- resume when safe. [id number] score is 5 for age, female, HTN, DM.
Chest pain: non currently
-not worse with exertion, EKG stable, echo as noted
-eventual OP stress test
HTN:
-stable
-continue diltiazem
Abnormal troponin: 0.046
-acute, non-ischemic myocardial injury in setting of anemia
Physical Exam
Vital Signs/Labs
Vital Signs
Temp Pulse Resp BP Pulse Ox
98.6 F 81 14 130/71 93
02/09/25 07:49 02/09/25 07:49 02/09/25 07:49 02/09/25 07:49 02/09/25 07:49
02/08/25 02/09/25 02/10/25
06:59 06:59 06:59
Actual Weight 98.883 kg
02/09/25 05:29
02/09/25 05:29
PT 16.1 Sec (11.4-14.6) H 02/07/25 15:59
INR 1.23 02/07/25 15:59
Magnesium 2.1 mg/dl (1.6-2.3) 02/09/25 05:29
02/07/25
15:59
Lrx-Q-Hguonwssjci Pept 149
LAB Results
02/07/25 02/07/25 02/08/25
15:59 21:29 00:00
Troponin I < 0.012 0.029 D 0.046 H* D
02/08/25 02/08/25 02/08/25
06:00 11:45 17:45
Troponin I 0.038 H* Cancelled Cancelled
Physical Exam
Constitutional: No acute distress
EENT: Anicteric
Cardiovascular: Rhythm & rate is regular and Pedal edema present (mild BLE edema)
Respiratory: Respiratory effort normal and Lungs clear to auscul.
Neuro/Psych: AO x 3
Data Reviewed
-
Date of Service: February 09, 2025
EKG: Other (SR)
Labs: Labs Reviewed by me
[2025-02-09] MEDS: MIRALAX PO (10:47)
[2025-02-09 12:28] LABS: Glucose - Point of Care 132 mg/dl (70-99)
[2025-02-09] MEDS: FERRLECIT 110 MG IV (13:28)
[2025-02-09 16:54] LABS: Glucose - Point of Care 199 mg/dl (70-99)
[2025-02-09] MEDS: NOVOLOG FLEXPEN-LOW RESISTANCE 300 UNITS SC (17:23)
[2025-02-09] MEDS: MIRALAX 17 GRAMS PO (20:26)
[2025-02-09] MEDS: SENOKOT 8.6 MG PO (20:27)
[2025-02-09] MEDS: ELIQUIS 5 MG PO (20:27)
[2025-02-09] MEDS: PRAVACHOL 20 MG PO (20:27)
[2025-02-09] MEDS: ELAVIL 50 MG PO (20:27)
[2025-02-09] MEDS: TYLENOL 650 MG PO (20:32)
[2025-02-09 21:34] LABS: Glucose - Point of Care 160 mg/dl (70-99)
[2025-02-10 00:10] VITALS: PULSE 78
[2025-02-10 06:42] LABS: Hematocrit 30.5 % (37.0-47.0); Hemoglobin 9.0 g/dL (12.0-16.0); Mean Corp Hgb Conc. 29.5 g/dL (33.0-37.0); Mean Corpuscular Volume 81.3 fL (81.0-99.0); Platelet Count 194 10^3/uL (130-400); Red Cell Dist. Width 17.6 % (11.5-14.5)
[2025-02-10 07:05] LABS: Blood Urea Nitrogen 18 mg/dl (7-17); Calcium 8.3 mg/dl (8.4-10.2); Carbon Dioxide 29 mmol/L (22-30); Chloride 107 mmol/L (98-107); Estimated Creatinine Clearance 79 ml/min; Glucose 144 mg/dl (70-99); Potassium 4.1 mmol/L (3.5-5.1); Sodium 139 mmol/L (135-145); eGFR > 60.00
--- NOTE | 2025-02-10 07:13 | W.PN.HOSP.TC ---
Today's Communication/Plan
-
OK for DC post PT Eval
Assessment / Plan
Assessment / Plan
Ms. Amarilis Ramey is a 79yo F with PMHX of Afib on Eliquis, HTN, GERD, hemorrhoids, urinary retention, HLD came with episodes of left sided chest pain and progressive b/l LE swelling. She is found to be anemic.
CXR
IMPRESSION:
1. Normal heart size with suggestion of elevated pulmonary venous pressures.
2. Severe tortuosity of the descending thoracic aorta which appears chronic and unchanged.
3. Mild chronic elevation of the anterior right hemidiaphragm.
4. Mild subsegmental atelectasis and scarring in both lower lungs.
TTE 02/08/25
CONCLUSIONS
Left ventricular ejection fraction is 70-75%, by visual assessment. Normal
regional wall motion.
Normal right ventricular size and function.
Very mild aortic stenosis; peak/mean gradients 12/6 mmHg, calculated BRAYDEN is 1.9
cm2.
No prior study available for comparison.
Chest Pain/ Palpitations
Lower Extremity Swelling
Concern for symptomatic anemia
-Troponin peaked at 0.046
-continue to monitor on telemetry
-TTE results above, no WMA
-s/p 1 unit PRBC on 02/08 with Hg increased from 8 to 8.7; now 9 this AM
-Cardiology consult appreciated, plan for outpatient stress test
#Anemia, microcytic
Iron Deficiency Anemia
-s/p EGD without source of bleeding
-OK to resume Eliquis per GI
-follow up with GI as outpatient to consider colonoscopy/ capsule
#Essential HTN
#HLD
#Insomnia
Obesity 2/2 excess calories
-appreciate dietary
#Afib, paroxysmal
-CASER Eliquis resumed
DVT ppx SCDs
Full code
51 minutes spent on patient care
Anticipated Discharge: Today
Subjective/Interval History
-
Date of Service: February 10, 2025
feeling better today
feels ready to go home
no bleeding overnight
Objective Data
-
Labs:
Laboratory Results
02/10/25
06:17
WBC 5.9
Hgb 9.0 L
Hct 30.5 L
Plt Count 194
Sodium 139
Potassium 4.1
Chloride 107
Carbon Dioxide 29
BUN 18 H
Creatinine 0.6
Glucose 144 H
Calcium 8.3 L
Vital Signs:
Vital Signs
Temp Pulse Resp BP Pulse Ox
98.5 F 87 18 153/78 95
02/09/25 23:00 02/09/25 23:00 02/09/25 23:00 02/09/25 23:00 02/09/25 23:00
I&O
02/09/25 02/10/25 02/11/25
06:59 06:59 06:59
Intake Total 730 / 730 1200 / 1200
Balance 730 / 730 1200 / 1200
Review of Systems
-
History Source: Patient
All other systems: Reviewed and negative
Physical Exam
-
General: No Apparent Distress
HEENT: PERRLA
Respiratory: Clear to Auscultation; Negative Wheezes
Cardiac: Regular Rhythm and S1/S2
GI: Soft and Nontender
Musculoskeletal: No Edema
Skin: Warm and Dry; Negative Rash
Neuro: AO x 3
Psych: Calm
Data Reviewed
-
Diagnostic Radiology: Report Reviewed by me
Labs: Labs Reviewed by me
[2025-02-10 07:31] VITALS: BP 114/71
[2025-02-10 07:58] LABS: Glucose - Point of Care 133 mg/dl (70-99)
[2025-02-10] MEDS: NOVOLOG FLEXPEN-LOW RESISTANCE SC ×2 (08:02→12:02)
[2025-02-10] MEDS: CARDIZEM CD 120 MG PO (08:22)
[2025-02-10] MEDS: MYRBETRIQ EXTENDED RELEASE 25 MG PO (08:22)
[2025-02-10] MEDS: ELIQUIS 5 MG PO (08:23)
[2025-02-10] MEDS: NSS (PRESERVATIVE FREE) 10 ML IV (08:23)
[2025-02-10] MEDS: PROTONIX IV 40 MG IV (08:23)
[2025-02-10] MEDS: MIRALAX 17 GRAMS PO (08:24)
--- NOTE | 2025-02-10 10:06 | W.DS.TRANS ---
DC Summary - Lath Tier
-
Discharge Instructions:
Discharge Diagnosis/Procedures symptomatic anemia
Diet Regular
Activity As tolerated
Driving Restrictions As prior to admission
Bathing Restrictions None
Blood Work Your PCP may order repeat CBC (to monitor blood
counts).
Instructions: Good food sources of iron
Stand-Alone Forms:
Changes to Home Medications: Yes
Discharge Medications:
DC Medications w/original date entered in [facility]
cholecalciferol (vitamin D3) 50 mcg (2,000 unit) capsule (Vitamin D3) 2,000 unit PO DAILY Supplement 01/14/15
pantoprazole 40 mg tablet,delayed release 40 mg PO DAILY@0700 Gastrointestinal issue 04/16/20
apixaban 5 mg tablet (Eliquis) 5 mg PO BID ##0 08/01/20
acetaminophen 650 mg tablet,extended release 1,300 mg PO 2XD PRN pain 11/09/22
diltiazem HCl 120 mg capsule,extended release 24 hr, controlled 120 mg PO DAILY 11/09/22
estradiol 0.01% (0.1 mg/gram) vaginal cream (Estrace) 1 g vaginal 1XD 11/09/22
mirabegron 25 mg tablet,extended release 24 hr (Myrbetriq) 25 mg PO DAILY 11/09/22
sennosides 8.6 mg tablet (senna) 2 tab PO PRN PRN Conastipation 11/09/22
glipizide 2.5 mg tablet 2.5 mg PO DAILY 02/08/25
amitriptyline 50 mg tablet 50 mg PO HS #30 tabs 02/10/25
ferrous gluconate 240 mg (27 mg iron) tablet 240 mg PO DAILY #30 tabs 02/10/25
polyethylene glycol 3350 17 gram oral powder packet 17 g PO DAILY #14 ea 02/10/25
Home Medication Changes
Amitriptyline is decreased from 75mg to 50mg based on recommendations for patients older 65 years old. Discuss changes with PCP.
You are prescribed iron tablets. OK to take every other day if causes constipation. If you cannot tolerate decreased frequency, you can focus on diet to increase iron intake.
Pending Results: No
[2025-02-10 10:40] VITALS: BP 134/64; PULSE 82; O2SAT 96
[2025-02-10 11:09] VITALS: BP 127/69
--- NOTE | 2025-02-10 11:40 | W.DCSUMMARY ---
Discharge Summary
Discharge Data
Date of Admission: 02/08/25
Date of Discharge: 02/10/25
-
Pending Results: No
Hospital Course
Discharging Physician : Dr. Juana Núñez
Disposition : Home
Primary care physician : Dr. Leonor Griffin
Principal Discharge diagnosis : Symptomatic Anemia, iron deficiency anemia
Hospital Course :
Ms. Amarilis Ramey is a 79 yo woman with hx Afib on Eliquis, HTN, GERD, hemorrhoids, urinary retention, HLD came with episodes of left sided chest pain and progressive b/l LE swelling. She was found to be anemic with Hg 8.4. Troponin 0.046. Patient
reports she had a recently hospitalization 2-3 months ago for hemorrhoidal bleeding but was told she wasn't anemic at that time. She was admitted to medicine with Cardiology consulting for chest pain and elevated Troponin, symptoms thought largely
due to symptomatic anemia. GI consulted for endoscopic eval.
Patient was transfused a unit of blood for symptomatic anemia. She underwent an endoscopy on 02/09 without source of bleeding found. Eliquis resumed and Hg remained stable, 9.0 on day of discharge. Plan is for further work up with colonoscopy and
possible capsule as outpatient.
Regarding chest pain, these symptoms resolved prior to discharge. She will follow up with her outpatient birthing nurse to discuss stress test.
She is discharged with a script for iron pills, with plans for outpatient monitoring of CBC.
Patient's [employer] SERVICES SPECIALIST Amitriptyline was decreased from 75mg to 50mg in evenings.
Time spent on discharge was 35 minutes.
Important imaging findings :
Procedure findings :
EGD 02/09/25
Impression: - Normal esophagus.
- Small hiatal hernia.
- Normal examined duodenum.
- No specimens collected.
Recommendation: - Anemia likely multifactorial, with significant
recent hemorrhoidal bleeding, possible underlying iron
deficiency from angioectaias. Ok to restart
anticoagulation if indicated with iron supplementation
and monitoring. Will plan outpatient capsule endoscopy
and follow up with Dr. Pink. Will restart diet. OK
to DC from [facility]. Will sign off for now, please
call back with any other questions.
Discharge Plan
-
Patient Disposition: Home (Routine Discharge)
Discharge Diagnosis/Procedures: symptomatic anemia
Diet: Regular
Activity: As tolerated
Driving Restrictions: As prior to admission
Bathing Restrictions: None
Blood Work: Your PCP may order repeat CBC (to monitor blood counts).
Instructions: Good food sources of iron
Referrals:
Lisa Pink DO [Active, Gastroenterology] - in two to four weeks
Leonor Griffni MD [Family Provider, Family Practice] - in less than 1 week
Saeid Valadez MD [Active, Cardiology] - in two to four weeks
Referral Note: follow up to discuss outpatient stress test
Additional Discharge Medication Instructions: Amitriptyline is decreased from 75mg to 50mg based on recommendations for patients older 65 years old. Discuss changes with PCP.
You are prescribed iron tablets. OK to take every other day if causes constipation. If you cannot tolerate decreased frequency, you can focus on diet to increase iron intake.
Prescriptions:
New
polyethylene glycol 3350 17 gram Powder In Packet
17 g PO DAILY Qty: 14 0RF
amitriptyline 50 mg Tablet
50 mg PO HS Qty: 30 0RF
ferrous gluconate 240 mg (27 mg iron) tablet
240 mg PO DAILY Qty: 30 0RF
Continued
cholecalciferol (vitamin D3) [Vitamin D3] 2,000 UNIT capsule
2,000 unit PO DAILY
pantoprazole 40 MG tablet,delayed release (DR/EC)
40 mg PO DAILY@0700
Eliquis 5 MG tablet
5 mg PO BID Qty: 0 0RF
acetaminophen 650 mg Tablet Extended Release
1,300 mg PO 2XD PRN (Reason: pain)
sennosides [senna] 1 TABLET tablet
2 tab PO PRN PRN (Reason: Conastipation)
diltiazem HCl 120 mg Capsule,Ext.Rel 24h Degradable
120 mg PO DAILY
mirabegron [Myrbetriq] 25 mg Tablet Extended Release 24 Hr
25 mg PO DAILY
estradiol [Estrace] 0.01 % (0.1 mg/gram) Cream
1 g VAGINAL 1XD
glipizide 2.5 mg Tablet
2.5 mg PO DAILY
Discontinued
amitriptyline [Elavil] 75 mg Tablet
75 mg PO HS
Discharge Orders:
Discharge Patient (As Directed); Ordered 02/10/25
Ordered By: Juana Núñez
Discharge Date and Time
Print Language: MONGOLIAN
== END 2025-02-10 12:15 | disposition home or self-care (01) | DRG 811 ==
LOC: 3 WEST ACU 00:05
PROVIDERS: Emergency Medicine; Internal Medicine Gastroenterology; Physician Assistant; ADMITTING PHYSICIAN Internal Medicine; ATTENDING PHYSICIAN Student in an Organized Health Care Education/Training Program; EMERGENCY PHYSICIAN Student in an Organized Health Care Education/Training Program; FAMILY PHYSICIAN Family Medicine; OTHER PHYSICIAN Internal Medicine
PROC: 30233N1 Transfusion of Nonautologous Red Blood Cells into Peripheral Vein, Percutaneous Approach (ICD-10-PCS; 2025-02-08)
PROC: 0DJ08ZZ Inspection of Upper Intestinal Tract, Via Natural or Artificial Opening Endoscopic (ICD-10-PCS; 2025-02-09)
DX: D50.0 Iron deficiency anemia secondary to blood loss (chronic) (principal); K55.21 Angiodysplasia of colon with hemorrhage; I5A Non-ischemic myocardial injury (non-traumatic); Z68.41 Body mass index [BMI] 40.0-44.9, adult; I24.89 Other forms of acute ischemic heart disease; I48.0 Paroxysmal atrial fibrillation; I10 Essential (primary) hypertension; E66.9 Obesity, unspecified; K44.9 Diaphragmatic hernia without obstruction or gangrene; E11.9 Type 2 diabetes mellitus without complications; Z79.01 Long term (current) use of anticoagulants; Z79.899 Other long term (current) drug therapy
CPT/HCPCS: 71046; 80048; 80053; 82607; 82728; 82746; 82962; 83036; 83540; 83550; 83615; 83735; 83880; 84443; 84484; 85025; 85027; 85045; 85610; 86850; 86900; 86901; 86920; 93005; 93306; 94660; 96374; 97116; 97162; 99285; J2916; P9016

== ENCOUNTER 2025-02-14 13:18 | Emergency (ER) | payer MEDICARE, OTHER, SELFPAY ==
[2025-02-14 13:22] VITALS: BP 149/79
[2025-02-14 13:42] VITALS: BMI 45.0
--- NOTE | 2025-02-14 13:54 | ED.GENMED ---
History of Present Illness
General
Chief Complaint: Rectal Bleeding
Source: patient
Exam Limitations: none
Time Seen by Provider: 02/14/25 13:29
Nursing documentation reviewed up to this point in time: agreed with
History of Present Illness
History of Present Illness:
79-year-old female presents to the Emergency Department due to bleeding hemorrhoids. She was recently admitted for anemia. She notes that is dripping.
Past History
Past History
ED Past Medical History: Arrthythmia (Atrial fibrillation), GERD, Hypercholesterolemia, NIDDM and Other (Trigeminal neuralgia, arthritis)
ED Past Surgical History: Cholecystectomy, Gynecological (Tubal ligation) and Orthopedic
Social History
Tobacco: Non-smoker
Alcohol: None
Drug: None
Personal:
Living: with family
Review of Systems
Review of Systems
Allergies reviewed?: Yes
All Other Systems: Not applicable
Constitutional: Reports no symptoms
EENT: Reports no symptoms
Respiratory: Reports no symptoms
Cardiac: Reports no symptoms
ABD/GI: Reports other (Bleeding hemorrhoids)
: Reports no symptoms
Musculoskeletal: Reports no symptoms
Skin: Reports no symptoms
Neurological: Reports no symptoms
Endocrine: Reports no symptoms
Hematologic/Lymphatic: Reports bleeding
Psychiatric: Reports no symptoms
Phy Exam
Physical Exam
Physical Exam:
Physical Exam
General: no apparent distress, not acutely ill
Neck: supple. no meningeal signs. normal posterior pharynx
Heart: s1/s2 regular rate and rhythm, no murmur. equal radial
pulses.
HEENT: Pupils equal round reactive to light, EOMI
Lungs: no acute respiratory distress. clear bilaterally
Abdomen: normal bowel sounds. not tender. no CVAT
Rectal exam: Hemorrhoids nonbleeding
Neuro: alert and oriented. no focal neurological deficits cranial nerves II through XII intact
Skin: no rash
Psychiatric: well kept. interactive and cooperative
Extremities: no edema. no calf tenderness. negative homans. good distal pulses
Course
Orders/Labs/Results
Orders:
Orders
02/14/25 13:30
IV Insert/Care/Rem.- Treatment PRN
02/14/25 13:44
Complete Blood Count/With Diff Urgent
Comprehensive Metabolic Panel Urgent
PTT Urgent
Prothrombin Time Urgent
Abnormal Lab Results
02/14/25
13:44
WBC 4.7 L 10^3/uL
(4.8-10.8)
RBC 3.74 L 10^6/uL
(4.20-5.40)
Hgb 9.2 L g/dL
(12.0-16.0)
Hct 31.1 L %
(37.0-47.0)
MCH 24.6 L pg
(27.0-31.0)
MCHC 29.6 L g/dL
(33.0-37.0)
RDW 18.9 H %
(11.5-14.5)
Absolute Lymphs (auto) 1.1 L 10^3/uL
(1.2-3.4)
Immature Gran % 0.6 H %
(0-0.5)
Monocytes % 10.1 H %
(1.7-9.3)
PT 16.4 H Sec
(11.4-14.6)
APTT 35.5 H Sec
(23.4-35.0)
BUN 20 H mg/dl
(7-17)
Glucose 127 H mg/dl
(70-99)
02/14/25 13:44
02/14/25 13:44
Vital Signs
Initial and Last Documented VS:
Initial Vital Signs
Temp Pulse Resp BP Pulse Ox
98.5 F 75 20 149/79 98
02/14/25 13:22 02/14/25 13:22 02/14/25 13:22 02/14/25 13:22 02/14/25 13:22
Last Documented Vital Signs
Temp Pulse Resp BP Pulse Ox
98.1 F 75 20 124/64 97
02/14/25 14:40 02/14/25 14:40 02/14/25 13:22 02/14/25 14:40 02/14/25 14:40
MDM/Problems Addressed
Differential Diagnosis Includes:
GI bleed, anemia, hemorrhoids
MDM/Problems Addressed:
79-year-old female with hemorrhoids, not noted to be bleeding on exam. Hemoglobin stable at 9.2. No indication for blood transfusion. Stable for discharge, follow-up with colorectal. Will prescribe Anusol.
Chronic conditions affecting care: HTN and Arrhythmia
Acute Exacerbation and/or Progression of Chronic Illness: Arrhythmia
*Pulse Oximetry
SaO2: 98
Oxygen Mode of Delivery: Room air
Patient hypoxic: no
*Critical Care Note
Total Time (30-74mins, 75-104mins- exclusive of procedures): Not Applicable
Data Reviewed
Review of Other/Old Records Reveals: Labs (Hemoglobin 9.0 on 02/10/2025)
Source: records
Prescriptions/Medications Considered But Not Given:
Blood transfusion not indicated
Patient Management
Social determinants of health affecting care: Living situation and Strong social support
Escalation/DeEscalation of care consider admission/obs:
Admit none indicated
ED Attending Note
-
Portions of this chart may have been created with voice recognition software.� Occasional wrong word or��sound alike� substitutions may have occurred due to the inherent limitations of voice recognition software.
Discharge Plan
Departure
Patient Disposition: Home (Routine Discharge)
Date of Disposition: 02/14/25
Time of Disposition: 15:03
Patient with high blood pressure during this ER visit?: Yes
Condition: Good
Discharge Problem:
Hemorrhoids
Instructions: Hemorrhoids (DC), BLOOD PRESSURE
Prescriptions:
New
hydrocortisone acetate [Anusol-HC] 25 mg suppository
25 mg WI BID Qty: 12 0RF
No Action
cholecalciferol (vitamin D3) [Vitamin D3] 2,000 UNIT capsule
2,000 unit PO DAILY
pantoprazole 40 MG tablet,delayed release (DR/EC)
40 mg PO DAILY@0700
Eliquis 5 MG tablet
5 mg PO BID Qty: 0 0RF
acetaminophen 650 mg Tablet Extended Release
1,300 mg PO 2XD PRN (Reason: pain)
sennosides [senna] 1 TABLET tablet
2 tab PO PRN PRN (Reason: Conastipation)
diltiazem HCl 120 mg Capsule,Ext.Rel 24h Degradable
120 mg PO DAILY
mirabegron [Myrbetriq] 25 mg Tablet Extended Release 24 Hr
25 mg PO DAILY
estradiol [Estrace] 0.01 % (0.1 mg/gram) Cream
1 g VAGINAL 1XD
glipizide 2.5 mg Tablet
2.5 mg PO DAILY
polyethylene glycol 3350 17 gram Powder In Packet
17 g PO DAILY Qty: 14 0RF
amitriptyline 50 mg Tablet
50 mg PO HS Qty: 30 0RF
ferrous gluconate 240 mg (27 mg iron) tablet
240 mg PO DAILY Qty: 30 0RF
Referrals:
Isai Wray MD [Active, ColoRectal] - Call in 1-3 days for appt
Leonor Griffin MD [Family Provider, Family Practice]
Interventions
Interventions:
*Risk Screen - Suicide Last Done: 02/14/25 13:22
*General Assessment Last Done: 02/14/25 13:22
*Neglect/Abuse Screening Last Done: 02/14/25 13:22
*ED- Fall Risk Assessment Last Done: 02/14/25 13:22
*ED COVID-19 Vaccine History Last Done: 02/14/25 13:22
TA-Pviwkf-Ypsywzvvvb Assessment Last Done: 02/14/25 13:42
ED- Cardiac Assessment Last Done: 02/14/25 13:42
ED- Pulmonary Assessment Last Done: 02/14/25 13:42
Discharge Date and Time
Print Language: ALBANIAN
[2025-02-14 13:56] LABS: Hematocrit 31.1 % (37.0-47.0); Hemoglobin 9.2 g/dL (12.0-16.0); Mean Corp Hgb Conc. 29.6 g/dL (33.0-37.0); Mean Corpuscular Volume 83.2 fL (81.0-99.0); Nucleated Red Blood Cells % 0 %; Platelet Count 202 10^3/uL (130-400); Red Cell Dist. Width 18.9 % (11.5-14.5)
[2025-02-14 14:09] LABS: INR 1.27; PT 16.4 Sec (11.4-14.6)
[2025-02-14 14:10] LABS: APTT 35.5 Sec (23.4-35.0)
[2025-02-14 14:31] LABS: ALT (SGPT) 11 U/L (0-35); AST (SGOT) 16 U/L (14-36); Albumin 3.9 g/dl (3.5-5.0); Alkaline Phosphatase 72 U/L (38-126); Blood Urea Nitrogen 20 mg/dl (7-17); Calcium 8.7 mg/dl (8.4-10.2); Carbon Dioxide 27 mmol/L (22-30); Chloride 106 mmol/L (98-107); Estimated Creatinine Clearance 80 ml/min; Glucose 127 mg/dl (70-99); Potassium 4.2 mmol/L (3.5-5.1); Sodium 139 mmol/L (135-145); Total Protein 6.4 g/dl (6.3-8.2); eGFR > 60.00
[2025-02-14 14:40] VITALS: BP 124/64
[2025-02-14 15:21] VITALS: BP 112/66
== END 2025-02-14 16:11 | disposition home or self-care (01) ==
LOC: EMR 13:18
PROVIDERS: EMERGENCY PHYSICIAN Emergency Medicine; FAMILY PHYSICIAN Family Medicine
DX: K62.5 Hemorrhage of anus and rectum (principal); K64.9 Unspecified hemorrhoids; E78.00 Pure hypercholesterolemia, unspecified; I48.91 Unspecified atrial fibrillation; I10 Essential (primary) hypertension; E11.42 Type 2 diabetes mellitus with diabetic polyneuropathy; M19.90 Unspecified osteoarthritis, unspecified site; K21.9 Gastro-esophageal reflux disease without esophagitis; G47.30 Sleep apnea, unspecified; Z79.01 Long term (current) use of anticoagulants; Z86.16 Personal history of COVID-19; Z85.828 Personal history of other malignant neoplasm of skin; Z90.49 Acquired absence of other specified parts of digestive tract
CPT/HCPCS: 99283; 80053; 85025; 85610; 85730

== ENCOUNTER 2025-03-09 16:51 | Emergency (ER) | payer MEDICARE, OTHER, SELFPAY ==
[2025-03-09 16:57] VITALS: BP 99/75
[2025-03-09 17:31] LABS: Hematocrit 31.2 % (37.0-47.0); Hemoglobin 9.0 g/dL (12.0-16.0); Mean Corp Hgb Conc. 28.8 g/dL (33.0-37.0); Mean Corpuscular Volume 85.0 fL (81.0-99.0); Platelet Count 186 10^3/uL (130-400); Red Cell Dist. Width 20.9 % (11.5-14.5)
[2025-03-09 17:34] LABS: ALT (SGPT) 11 U/L (0-35); AST (SGOT) 17 U/L (14-36); Albumin 4.1 g/dl (3.5-5.0); Alkaline Phosphatase 67 U/L (38-126); Blood Urea Nitrogen 14 mg/dl (7-17); Calcium 9.1 mg/dl (8.4-10.2); Carbon Dioxide 27 mmol/L (22-30); Chloride 108 mmol/L (98-107); Glucose 122 mg/dl (70-99); Potassium 4.1 mmol/L (3.5-5.1); Sodium 140 mmol/L (135-145); Total Protein 6.6 g/dl (6.3-8.2); eGFR > 60.00
[2025-03-09 17:38] LABS: INR 1.21; PT 15.6 Sec (11.4-14.6)
[2025-03-09 17:39] LABS: APTT 33.7 Sec (23.4-35.0)
[2025-03-09 18:31] LABS: Nucleated Red Blood Cells % 0 %
[2025-03-09 18:49] VITALS: BP 145/83
[2025-03-09 20:58] VITALS: BMI 43.5
[2025-03-09 21:09] VITALS: BP 130/79
[2025-03-09 21:11] VITALS: BP 130/79
--- NOTE | 2025-03-09 21:19 | ED.GENMED ---
History of Present Illness
General
Chief Complaint: Anal/Rectal Problem
Source: patient and records
Exam Limitations: none
Time Seen by Provider: 03/09/25 20:49
History of Present Illness
History of Present Illness:
79yoF with a history of atrial fibrillation on Eliquis, hypertension, hyperlipidemia, type 2 diabetes, and hemorrhoids presenting with her for evaluation of bleeding hemorrhoids. She has been having intermittent bright red blood per rectum
for several months. She was recently hospitalized from 02/08-02/10/25 for anemia. She underwent endoscopy during that hospitalization which was negative for bleeding. She is scheduled to have an outpatient capsule endoscopy next week. She was
again seen in the ED on 02/14 for concern for bleeding hemorrhoids. She was seen by Dr. Cortez 1 week ago who performed steroid injections into the hemorrhoids which helped temporarily. She started to have bleeding again yesterday every time she
goes to the bathroom. She felt lightheaded earlier today so her PCP told her to go to the ED for evaluation. Dizziness has resolved. No syncope or shortness of breath.
Past History
Past History
ED Past Medical History: Arrthythmia (Atrial fibrillation), GERD, Hypercholesterolemia, NIDDM and Other (Trigeminal neuralgia, arthritis)
ED Past Surgical History: Cholecystectomy, Gynecological (Tubal ligation) and Orthopedic
Social History
Tobacco: Non-smoker
Alcohol: None
Drug: None
Personal:
Living: with family
Phy Exam
General Physical Exam
General Presentation: well appearing and no apparent distress
General Skin: warm and dry
General Habitus: normal
General Mental: alert
ENT Exam
ENT Exam: normocephalic
Pulmonary Exam
Pulmonary Exam: no respiratory distress
Gastrointestinal Exam
Gastrointestinal Exam: non tender, soft and non distended
Rectal Exam: other (External hemorrhoids noted which are non-thrombosed. Stool brown and heme negative. No leah blood noted.)
Neurological Exam
Neurological Exam: alert
Ralph Coma Scale
Eye Opening: Spontaneous
Verbal Response: Oriented
Motor Response: Obeys Commands
GCS Total Score: 15
Skin Exam
Skin Exam: normal color and warm/dry
Psychiatric Exam
Psychiatric Exam: normal mood/affect
Course
Orders/Labs/Results
Orders:
Orders
03/09/25 17:04
Type And Crossmatch [Type+Screen] Urgent
Complete Blood Count/With Diff Urgent
Comprehensive Metabolic Panel Urgent
PTT Urgent
Prothrombin Time Urgent
Abnormal Lab Results
03/09/25
17:04
WBC 4.7 L 10^3/uL
(4.8-10.8)
RBC 3.67 L 10^6/uL
(4.20-5.40)
Hgb 9.0 L g/dL
(12.0-16.0)
Hct 31.2 L %
(37.0-47.0)
MCH 24.5 L pg
(27.0-31.0)
MCHC 28.8 L g/dL
(33.0-37.0)
RDW 20.9 H %
(11.5-14.5)
Absolute Lymphs (auto) 1.0 L 10^3/uL
(1.2-3.4)
Monocytes % 11.7 H %
(1.7-9.3)
PT 15.6 H Sec
(11.4-14.6)
Chloride 108 H mmol/L
(98-107)
Glucose 122 H mg/dl
(70-99)
03/09/25 17:04
03/09/25 17:04
Vital Signs
Initial and Last Documented VS:
Initial Vital Signs
Temp Pulse Resp BP Pulse Ox
98.8 F 93 20 99/75 96
03/09/25 16:57 03/09/25 16:57 03/09/25 16:57 03/09/25 16:57 03/09/25 16:57
Last Documented Vital Signs
Temp Pulse Resp BP Pulse Ox
98.8 F 93 18 130/79 97
03/09/25 16:57 03/09/25 21:11 03/09/25 18:49 03/09/25 21:11 03/09/25 21:22
MDM/Problems Addressed
Differential Diagnosis Includes:
79yoF here with bleeding hemorrhoids. Intermittent x several months. Has been seen by GI and colorectal surgery for the same. VSS. She is well appearing in no distress. Abdominal exam is benign. Non-thrombosed external hemorrhoids noted on exam.
Stool is brown without leah blood and hemoccult is negative. Differential diagnosis includes: Hemorrhoidal bleeding, anemia, less likely diverticular bleeding
Labs obtained in triage and hemoglobin is 9.0 which is stable from prior labs last month. Repeat vital stable. She has a capsule endoscopy scheduled for next week. At this point, there is no indication for hospitalization as this is an ongoing
issue for her and rectal exam was negative for active bleeding. She is currently on a bowel regimen. She was advised to start Anusol suppositories which she still has at home from a prior visit. Advised f/u with colorectal surgery and ED return
precautions reviewed. She was discharged in stable condition.
*Pulse Oximetry
SaO2: 97
Oxygen Mode of Delivery: Room air
Patient hypoxic: no (96%)
*Critical Care Note
Total Time (30-74mins, 75-104mins- exclusive of procedures): Not Applicable
ED Attending Note
-
Portions of this chart may have been created with voice recognition software.� Occasional wrong word or��sound alike� substitutions may have occurred due to the inherent limitations of voice recognition software.
Discharge Plan
Departure
Patient Disposition: Home (Routine Discharge)
Date of Disposition: 03/09/25
Time of Disposition: 21:22
Patient with high blood pressure during this ER visit?: No
Discharge Problem:
External hemorrhoids
Instructions: Hemorrhoids (DC)
Prescriptions:
No Action
cholecalciferol (vitamin D3) [Vitamin D3] 2,000 UNIT capsule
2,000 unit PO DAILY
pantoprazole 40 MG tablet,delayed release (DR/EC)
40 mg PO DAILY@0700
Eliquis 5 MG tablet
5 mg PO BID Qty: 0 0RF
acetaminophen 650 mg Tablet Extended Release
1,300 mg PO 2XD PRN (Reason: pain)
sennosides [senna] 1 TABLET tablet
2 tab PO PRN PRN (Reason: Conastipation)
diltiazem HCl 120 mg Capsule,Ext.Rel 24h Degradable
120 mg PO DAILY
mirabegron [Myrbetriq] 25 mg Tablet Extended Release 24 Hr
25 mg PO DAILY
estradiol [Estrace] 0.01 % (0.1 mg/gram) Cream
1 g VAGINAL 1XD
glipizide 2.5 mg Tablet
2.5 mg PO DAILY
polyethylene glycol 3350 17 gram Powder In Packet
17 g PO DAILY Qty: 14 0RF
amitriptyline 50 mg Tablet
50 mg PO HS Qty: 30 0RF
ferrous gluconate 240 mg (27 mg iron) tablet
240 mg PO DAILY Qty: 30 0RF
hydrocortisone acetate [Anusol-HC] 25 mg suppository
25 mg DE BID Qty: 12 0RF
Referrals:
Leonor Griffin MD [Family Provider, Family Practice]
Activity Restrictions/Additional Instructions:
Use Anusol suppositories as previously prescribed.
Please follow-up with colorectal surgery on Wednesday. Return to the ER with any new or worsening symptoms.
Interventions
Interventions:
*Risk Screen - Suicide Last Done: 03/09/25 16:57
*General Assessment Last Done: 03/09/25 16:57
*Neglect/Abuse Screening Last Done: 03/09/25 21:03
*ED- Fall Risk Assessment Last Done: 03/09/25 21:03
*ED COVID-19 Vaccine History Last Done: 03/09/25 21:03
*Nursing Disposition Last Done: 03/09/25 21:43
OK-Cmihtk-Cnafqepyzc Assessment Last Done: 03/09/25 21:07
ED-Skin Assessment Last Done: 03/09/25 21:03
Discharge Date and Time
Discharge Date/Time: 03/09/25 21:45
Print Language: MICRONESIAN
== END 2025-03-09 21:45 | disposition home or self-care (01) ==
LOC: EMR 16:51
PROVIDERS: Student in an Organized Health Care Education/Training Program; EMERGENCY PHYSICIAN Emergency Medicine; FAMILY PHYSICIAN Family Medicine
DX: K64.4 Residual hemorrhoidal skin tags (principal); I10 Essential (primary) hypertension; E11.9 Type 2 diabetes mellitus without complications; E78.00 Pure hypercholesterolemia, unspecified; Z79.01 Long term (current) use of anticoagulants; I48.91 Unspecified atrial fibrillation
CPT/HCPCS: 99283; 80053; 85025; 85610; 85730; 86850; 86900; 86901

== ENCOUNTER 2025-03-16 06:21 | Day surgery (SDC) | payer MEDICARE, OTHER, SELFPAY ==
[2025-03-16] VITALS (8 sets, daily range): BP systolic 117–154; BP diastolic 57–88; BMI 42.5
[2025-03-16] MEDS: TYLENOL 1000 MG PO (13:26)
[2025-03-16] MEDS: CELEBREX 200 MG PO (13:26)
[2025-03-16] MEDS: NORMOSOL-R/PLASMALYTE-A 1000 IV (13:27)
[2025-03-16 13:37] LABS: Glucose - Point of Care 123 mg/dl (70-99)
[2025-03-16 15:54] LABS: Glucose - Point of Care 95 mg/dl (70-99)
[2025-03-16] MEDS: SUBLIMAZE 50 MCG IV (16:20)
--- NOTE | 2025-03-16 16:27 | W.IMMPOSTOP ---
Surgical Immed Post Op Note
-
Primary Surgeon: Oj Cortez MD
Assisting Surgeon: Truman Daly MD
Pre-op Diagnosis: Bleeding internal hemorrhoids
Post-op Diagnosis: Bleeding internal hemorrhoids
Procedure Performed: Transanal hemorrhoidal dearterialization x 4, bilateral pudendal nerve block
Anesthesia Type: Sedation with spinal and local
Specimen / Cultures: None
Estimated Blood Loss: 10 mL
Complications: None
Operative Findings: Enlarged internal hemorrhoids in the left lateral, right posterior, right posterior lateral and left posterior positions; performed THD for each; no other anorectal pathology seen
--- NOTE | 2025-03-16 16:28 | OR.RPT ---
Operative Report
Operative Report
DATE OF OPERATION: 03/16/2025
SURGEON: Oj Cortez MD
PREOPERATIVE DIAGNOSIS: Bleeding internal hemorrhoids
POSTOPERATIVE DIAGNOSIS: Bleeding internal hemorrhoids
OPERATION: Exam under anesthesia, transanal hemorrhoidal dearterialization x 4, bilateral pudendal nerve block
ASSISTANTS:
1. Truman Daly MD
ANESTHESIA: Sedation with spinal and local
ESTIMATED BLOOD LOSS: 10 mL
FINDINGS:
1. Moderate to large internal hemorrhoids in the left lateral, right anterior and right posterior position and moderate-sized internal hemorrhoid in the left posterior position
2. No other anorectal pathology or proctitis
SPECIMENS:
1. None
DRAINS: None
COMPLICATIONS: None
INDICATIONS: The patient is a 79-year-old female with PMH of A-fib on [facility] who initially presented with bleeding internal hemorrhoids. I performed sclerotherapy and she improved. However, her symptoms recurred and continued despite a second
injection of sclerotherapy. Therefore, the patient was recommended to have surgery. I explained that a suture hemorrhoidopexy under THD guidance would be the plan for any concerning internal hemorrhoids. However, if a hemorrhoid identified is too
large for a suture hemorrhoidopexy, I would perform an excisional hemorrhoidectomy. The operation was discussed with the patient in detail, including the risks, benefits and alternatives. Risks described included, but not limited to, bleeding,
infection, urinary retention, damage to nearby structures such as the anal sphincter, fecal incontinence, anal stenosis, recurrence, and anesthetic risks. The patient understood and agreed to proceed. The consent was signed and placed in the chart.
PROCEDURE IN DETAIL: The patient was taken to the operating room. Sequential compression devices were placed bilaterally. On the bed, anesthesia performed a spinal block. The patient was placed on the operating table in prone position. Sedation
was commenced without complication. Two seat belts were secured around the legs and upper back. The buttocks were taped apart. The perineum was prepped and draped in the usual fashion. A time-out was performed verifying the correct patient,
procedure, operative site, positioning, and special equipment.
Local anesthesia used was a mixture of 30 mL of 0.25% Marcaine with epinephrine, 30mL of 1% lidocaine plain and 0.6 mg of dexamethasone. 40 mL was injected perianally at the beginning of the case. The anorectal exam was performed assessing all four
quadrants of the anal canal using Hill-Saxena retractors in progressively increasing size. There were moderate to large internal hemorrhoids in the left lateral, right anterior and right posterior positions as well as a moderate-sized internal
hemorrhoid in the left posterior position. There was no other anorectal pathology. The rectal mucosa that was visualized had no evidence of proctitis.
I elected to proceed with suture ligation and hemorrhoidopexy using THD guidance. Using the THD retractor with U/S probe, the hemorrhoid was exposed. I ligated the pedicle of the hemorrhoid after identifying it with audible doppler signal with a 2-0
Vicryl in a figure-of-8 fashion, leaving the tail long. I took running mucosal bites of the hemorrhoid distally toward the dentate line, stopping 1 cm above the dentate line. I tied this down to the long tail in order to pexy the hemorrhoid.
Hemostasis was confirmed. The remaining internal hemorrhoids were ligated and pexied in a similar fashion.
The anal canal was irrigated copiously with saline, checking for hemostasis, which was ensured. The remaining 20 mL of local were injected. 5 mL was injected bilaterally for a pudendal nerve block. 10 mL was injected around the surgical site and
perianally. The smallest Hill-Saxena was used to check hemostasis once more, which was confirmed. Surgicel was placed in the anal canal prophylactically.
At this point, the procedure was complete. All needle, sponge and instrument counts were correct. The patient tolerated the procedure well and was transferred to the recovery room in stable condition with gauze dressing in place secured with silk
tape.
Of note, Truman Daly MD, physiotherapy assistant, was necessary during this procedure for traction, countertraction, and exploratory purposes. I was present for the entire duration of the case.
DICTATED BY: Oj Cortez MD
== END 2025-03-16 17:57 | disposition home or self-care (01) ==
LOC: SDS 06:21
PROVIDERS: ATTENDING PHYSICIAN Surgery
DX: K64.8 Other hemorrhoids (principal); Z79.01 Long term (current) use of anticoagulants
CPT/HCPCS: 46948; 82962

== ENCOUNTER 2025-03-29 18:34 | Inpatient (IN) | payer MEDICARE, OTHER, SELFPAY ==
[2025-03-29] VITALS (23 sets, daily range): BP systolic 87–120; BP diastolic 48–90; PULSE 80–89; BMI 46.3; BMI 44.6
[2025-03-29 15:41] LABS: ALT (SGPT) 11 U/L (0-35); AST (SGOT) 17 U/L (14-36); Albumin 3.6 g/dl (3.5-5.0); Alkaline Phosphatase 53 U/L (38-126); Blood Urea Nitrogen 14 mg/dl (7-17); Calcium 8.3 mg/dl (8.4-10.2); Carbon Dioxide 27 mmol/L (22-30); Chloride 105 mmol/L (98-107); Glucose 154 mg/dl (70-99); Potassium 4.1 mmol/L (3.5-5.1); Sodium 137 mmol/L (135-145); Total Protein 5.8 g/dl (6.3-8.2); eGFR > 60.00
[2025-03-29 15:57] LABS: Hematocrit 18.2 % (37.0-47.0); Hemoglobin 5.4 g/dL (12.0-16.0); Mean Corp Hgb Conc. 29.7 g/dL (33.0-37.0); Mean Corpuscular Volume 79.5 fL (81.0-99.0); Nucleated Red Blood Cells % 0 %; Platelet Count 177 10^3/uL (130-400); Red Cell Dist. Width 19.4 % (11.5-14.5)
--- NOTE | 2025-03-29 16:44 | ED.GENMED ---
History of Present Illness
General
Chief Complaint: Abnormal Lab Value
Source: patient and records
Exam Limitations: none
Time Seen by Provider: 03/29/25 16:18
History of Present Illness
History of Present Illness:
79yoF with a history of atrial fibrillation on Eliquis, hypertension, hyperlipidemia, and hemorrhoids presenting for evaluation of a low hemoglobin on outpatient labs. Patient has been having issues with bleeding hemorrhoids for the past 2 months
or so. She underwent a transanal hemorrhoidal dearterialization x4 on 03/16/[address] Cortez. Patient has been experiencing persistent bright red per rectum since the procedure. She is feeling short of breath with exertion as well as fatigued.
She was sent for outpatient labs yesterday by her PCP. She was called today regarding a hemoglobin of 6.0 and was sent to the ED for evaluation. She denies any dizziness or syncope.
Past History
Past History
ED Past Medical History: Arrthythmia (Atrial fibrillation), GERD, Hypercholesterolemia, NIDDM and Other (Trigeminal neuralgia, arthritis)
ED Past Surgical History: Cholecystectomy, Gynecological (Tubal ligation) and Orthopedic
Social History
Tobacco: Non-smoker
Alcohol: None
Drug: None
Personal:
Living: with family
Phy Exam
General Physical Exam
General Presentation: no apparent distress
General Skin: warm, dry and pale
General Habitus: elderly
General Mental: alert
ENT Exam
ENT Exam: normocephalic
Cardiovascular Exam
Cardiovascular Exam: systolic murmur
Pulmonary Exam
Pulmonary Exam: lungs clear, no respiratory distress, no rales, no crackles, no rhonchi and no wheezing
Gastrointestinal Exam
Gastrointestinal Exam: non tender, soft and non distended
Rectal Exam: other (External hemorrhoids noted. No blood on underwear. Digital rectal exam deferred due to pain/recent surgery.)
Neurological Exam
Neurological Exam: alert
Aashish Coma Scale
Eye Opening: Spontaneous
Verbal Response: Oriented
Motor Response: Obeys Commands
GCS Total Score: 15
Skin Exam
Skin Exam: warm/dry and pallor
Psychiatric Exam
Psychiatric Exam: normal mood/affect
Course
Orders/Labs/Results
Orders:
Orders
03/29/25 15:18
Type+Screen Urgent
Complete Blood Count/With Diff Urgent
Comprehensive Metabolic Panel Urgent
03/29/25 16:43
Blood Bank Products [* Blood Bank Products] Urgent
Blood Bank Products: *Packed RBC Leuko(PRBC's)
Quantity: 2
Transfuse Today: Yes
Reason: Anemia
Electrocardiogram (*1) Urgent
Reason for Study: Shortness of Breath
Cardiac Monitoring- Treatment ONCE
EKG- Treatment ONCE
CR Chest - 2 Views Urgent
Comment:
Reason For Exam: SOB
03/29/25 18:16
Admit/Transfer Patient As Directed
Co-Sign Provider:
Level of Care: Inpatient admission
Assign to:: IMU- Intermediate Care
Physician / Group: Cuba Lemos
Diagnosis: acute anemia, rectal bleeding
Reason for Hospitalization: acute anemia, rectal bleeding
Expected length of stay greater than two midnights?: Yes
ELOS- Estimated Length of Stay in days: 3
I certify the patient meets the requirements for IP care: Yes
PRN Pain Medication Management As Directed
May give lesser potent ordered pain med per pt: Yes
preference::
Protocol:: Medication orders for pain may be administered in a
manner that supports deferring to patient preference
when the pt is:
- Requesting an ordered lesser potent pain medication.
Least to most potent pain medications are defined
as: acetaminophen < NSAID < tramadol < opioids
(morphine, oxycodone, hydromorphone).
- Requesting a lesser dose of the same medication IF
ORDERED.
- Requesting a less intrusive route of administration
if both routes are prescribed by the provider (PO <
IV).
03/29/25 18:17
Code Status As Directed
Resuscitation Status: Full Code
Abnormal Lab Results
03/29/25
15:18
RBC 2.29 L 10^6/uL
(4.20-5.40)
Hgb 5.4 L* g/dL
(12.0-16.0)
Hct 18.2 L* %
(37.0-47.0)
MCV 79.5 L fL
(81.0-99.0)
MCH 23.6 L pg
(27.0-31.0)
MCHC 29.7 L g/dL
(33.0-37.0)
RDW 19.4 H %
(11.5-14.5)
Absolute Lymphs (auto) 1.1 L 10^3/uL
(1.2-3.4)
Lymphocytes % 19.3 L %
(20.5-51.1)
Glucose 154 H mg/dl
(70-99)
Calcium 8.3 L mg/dl
(8.4-10.2)
Total Protein 5.8 L g/dl
(6.3-8.2)
Crossmatch IS Only See Detail
03/29/25 15:18
03/29/25 15:18
Vital Signs
Initial and Last Documented VS:
Initial Vital Signs
Temp Pulse Resp BP Pulse Ox
98.8 F 95 16 116/54 96
03/29/25 15:04 03/29/25 15:04 03/29/25 15:04 03/29/25 15:04 03/29/25 15:04
Last Documented Vital Signs
Temp Pulse Resp BP Pulse Ox
98.2 F 79 16 105/59 100
03/29/25 18:10 03/29/25 18:10 03/29/25 18:10 03/29/25 18:10 03/29/25 18:00
MDM/Problems Addressed
Differential Diagnosis Includes:
79yoF here with a hemoglobin of 6.0 on outpatient labs. C/o BRBPR x several months. Recently underwent procedure for hemorrhoids about 2 weeks ago. On Eliquis for afib. Vital signs stable. She is pale on exam but nontoxic. Differential diagnosis
includes but is not limited to: Acute blood loss anemia, hemorrhoidal bleeding, diverticular bleeding
Workup initiated in triage and hemoglobin is downtrending to 5.4. Remainder of labs unremarkable. Consent obtained and 2 units PRBCs ordered for transfusion. Patient admitted for further evaluation and management.
*Pulse Oximetry
SaO2: 96
Oxygen Mode of Delivery: Room air
Patient hypoxic: no (96%)
*EKG
Interpreted by ED Provider?: Yes
EKG Intrepretation Date: 03/29/25
Heart Rate: 82
Rate: normal
Rhythm: sinus
[place]: normal axis
Interval: normal interval
QRS Pattern: normal QRS
Ischemia: no ischemia
*Critical Care Note
Total Time (30-74mins, 75-104mins- exclusive of procedures): Not Applicable
ED Attending Note
-
Portions of this chart may have been created with voice recognition software.� Occasional wrong word or��sound alike� substitutions may have occurred due to the inherent limitations of voice recognition software.
Discharge Plan
Departure
Patient Disposition: Admit
Date of Disposition: 03/29/25
Time of Disposition: 16:52
Presentation/result/management discussed w/ accepting MD/DO: Hospitalist
Discharge Problem:
Acute blood loss anemia, Rectal bleeding
Interventions
Interventions:
*Risk Screen - Suicide Last Done: 03/29/25 15:02
*General Assessment Last Done: 03/29/25 17:25
*Neglect/Abuse Screening Last Done: 03/29/25 17:25
--- NOTE | 2025-03-29 17:29 | HPS.HSE ---
Family Physician
-
Family Physician: NOT KNOW UNKNOWN - PT DOES
Chief Complaint
-
abnormal out patient labs
History of Present Illness
Patient is a 79-year-old female with past medical history significant for paroxysmal atrial fibrillation, hyperlipidemia, type II diabetes mellitus and GERD who presented to [facility] ED for evaluation of abnormal out patient labs. Patient reports that
she has been having issues with rectal bleeding since September, which started why she was in [place] for several months. She states bleeding has been just about daily since then. She was seen in a ER in [place] and they reported she was not anemic and
discharged her. When she returned to the in November she made appointments to be seen when Colorectal Surgery stated they believed that bleeding was coming from internal hemorrhoids and offered surgery to gain control of bleeding. Transanal
hemorrhoidal dearterialization x [address] Cortez on 03/16/2025. She reports that bleeding has not subsided post surgery. She has notified office multiple times and has a follow scheduled for next week. She was seen by primary care who sent
her for labs which indicated anemia, they refered patient to ED for evaluation and treatment.
Medical History
Past Medical History
Past Medical History: Reports Other
Additional Past Medical History:
paroxysmal atrial fibrillation
hyperlipidemia
type II diabetes mellitus
GERD
Past Surgical History: Reports Other
Additional Past Surgical History:
Cholecystectomy 2006
tubal ligation 1970
left hip fx repair 09/2019
D and C 04/2020
ight knee replacement 08/01/2020
Right L5-SI NO SED DOS NDSssss 07/23/2022
L5-S1 IL FLORESITA 08/27/2022
L arm to repair pinched nerve November 2022
scc nose 04/2024
Social History
Tobacco: Non-smoker
Alcohol: Occasional
Family History
Family History: Not pertinent
Allergies / Home Medications
Allergies reflects when Allergies were last updated in [employer]
Home Medications with original date entered in [employer]
Allergy/Medication List:
Allergies
Allergy/AdvReac Type Severity Reaction Status Date / Time
No Known Allergies Allergy Verified 03/29/25 15:01
Home Medications
cholecalciferol (vitamin D3) 50 mcg (2,000 unit) capsule (Vitamin D3) 2,000 unit PO DAILY Supplement 01/14/15
pantoprazole 40 mg tablet,delayed release 40 mg PO DAILY Gastrointestinal issue 04/16/20
apixaban 5 mg tablet (Eliquis) 5 mg PO BID ##0 08/01/20
diltiazem HCl 120 mg capsule,extended release 24 hr, controlled 120 mg PO DAILY 11/09/22
estradiol 0.01% (0.1 mg/gram) vaginal cream (Estrace) 1 g vaginal PRN PRN dryness 11/09/22
glipizide 2.5 mg tablet 2.5 mg PO DAILY 02/08/25
amitriptyline 75 mg tablet 75 mg PO HS 03/14/25
ferrous sulfate 134 mg (27 mg iron) tablet 134 mg PO DAILY 03/14/25
mirabegron 50 mg tablet,extended release 24 hr (Myrbetriq) 50 mg PO DAILY 03/14/25
rosuvastatin 40 mg tablet 40 mg PO HS 03/14/25
Review of Systems
-
History Source: Patient
Constitutional: Reports No Symptoms
EENT: Reports No Symptoms
Respiratory: Reports No Symptoms
Cardiac: Reports No Symptoms
Abdomen/GI: Reports Other (rectal bleeding since September 2024 )
: Reports No Symptoms
Musculoskeletal: Reports No Symptoms
Skin: Reports No Symptoms
Neurological: Reports No Symptoms
Endocrine: Reports No Symptoms
Hematologic/Lymphatic: Reports No Symptoms
Psych: Reports No Symptoms
Physical Exam
Vital Signs
Vital Signs
Temp Pulse Resp BP Pulse Ox
98.8 F 95 16 116/54 96
03/29/25 15:04 03/29/25 15:04 03/29/25 15:04 03/29/25 15:04 03/29/25 16:46
Physical Exam
General: Well Developed, Well Nourished, No Apparent Distress, Comfortable, Conversant and Obese
HEENT: NormoCephalic, Moist mucous membranes and Atraumatic
Respiratory: Clear and Non Labored Respirations
Cardiac: S1/S2 and Regular Rhythm; No Murmur, Rub or Gallop
Breast: Deferred by me
GI: Soft, Non Tender, Non Distended and Normal Bowel Sounds; No Organomegaly
Rectal: Deferred by Provider
Genito-urinary: Deferred by me
Musculoskeletal: No Clubbing, No Cyanosis and No Edema
Skin: Warm and Other (pale)
Neuro: Nonfocal/grossly intact
Hematologic/Lymphatic: No Lymphadenopathy
Psych: Calm and Intact Judgment/Insight
Laboratory Results
-
03/29/25 15:18
03/29/25 15:18
Laboratory Results
Total Bilirubin 0.5 mg/dl (0.2-1.3) 03/29/25 15:18
AST 17 U/L (14-36) 03/29/25 15:18
ALT 11 U/L (0-35) 03/29/25 15:18
Alkaline Phosphatase 53 U/L (38-126) 03/29/25 15:18
Data Reviewed
-
Lab Data: Labs Reviewed by me (hgb 5.4, hct 18.2, )
Impression/Plan
-
IMPRESSION/PLAN:
#acute anemia 2/2 rectal bleeding
hgb 5.4, hct 18.2
s/p transanal hemorrhoidal dearterialization x 4 on 03/16/[address] Cortez
- Admit to IMU
- Consult CRS
- transfuse 2 units PRBCs
- trend H/H
- IV Protonix BID
#paroxysmal atrial fibrillation
- hold Eliquis
- hold diltiazem in setting of hypotension and GI bleed
- if a-fib with RVR consider IV metoprolol for rate control
#hyperlipidemia
- continue rosuvastatin
#type II diabetes mellitus
- AccuCheck AC & HS
- SSI
- hold glipizide
#GERD
- IV protonix while acutely ill
Code status: full code
DVT prophylaxis: SCDs
--- NOTE | 2025-03-29 17:45 | W.PN.UPDATE ---
Update Note
Progress Note Update
This note serves as an addendum to the H&P by Aruna Jones on March 29, 2025.
History of Presenting Illness
79-year-old female with past medical history significant for hemorrhoids, paroxysmal atrial fibrillation (on Eliquis), hypertension, hyperlipidemia, type II diabetes mellitus and GERD who presented to [facility] ED for evaluation of abnormal out patient
labs, as well as fatigue and dyspnea on exertion. Patient reported that she has been having issues with rectal bleeding since September 2024, which started when she was in [place] for several months. She stated bleeding has been just about daily since
then. She was seen in an ER in [place] and they reported she was not anemic and discharged her. When she returned to the [place] in November 2024 she made appointments to be seen when Colorectal Surgery and they mentioned that they believed that patient's
bleeding was coming from internal hemorrhoids and offered surgery to gain control of bleeding. Transanal hemorrhoidal dearterialization x [address] Cortez on 03/16/2025. She reported that bleeding has not subsided post surgery. She has
notified colorectal office multiple times and has a follow scheduled for next week. She was seen by primary care who sent her for Hgb 6 on outpatient labs and symptomatic anemia. In the ER, other than bloody stools, she denied any other significant
symptoms or complaints.
Vital Signs
Afebrile
One episode of SBP in the 80s in the ER, but repeat BPs normal
Not tachycardic
Resp rate okay
Saturating oxygen well on room air
Physical Exam
General: Not in acute distress
HEENT: Normocephalic, Moist mucous membranes and Atraumatic
Respiratory: Clear to Auscultation Bilaterally
Cardiac: S1/S2 and Regular Rhythm
GI: Soft, Non Tender, Non Distended and Normal Bowel Sounds
Musculoskeletal: No Cyanosis and No Edema
Skin: Warm. Dry.
Neuro: AAOx3. Nonfocal/grossly intact
Psych: Calm and Intact Judgment/Insight
Assessment/Plan
#Acute symptomatic anemia blood loss anemia secondary to rectal bleeding
#Internal Hemorrhoids status post transanal hemorrhoidal dearterialization x 4 on 03/16/[address] Cortez
- Suspected lower GI bleed given color of blood
- Initial hgb 5.4
- Admit to IMU
- Consult Colorectal Surgery -- I discussed case with Dr. Wray and for now just PRBC transfusion and hold Eliquis
- transfuse 2 units PRBCs
- trend H/H
- NPO
#Paroxysmal atrial fibrillation
- Hold Eliquis -- patient was concerned about holding Eliquis and I made it clear to her that continuing blood thinners at this time is life-threatening, and she agreed to hold Eliquis
- Patient asked me to notify her courtroom deputy in [facility] cardiology, Dr. Valadez -- and I communicated via [place] Text with Dr. Valadez about patient's admission and the fact that we are holding Eliquis, Dr.
Rory agreed with the plan to hold Eliquis
- hold diltiazem in setting of softer blood pressures (with potential for worsening hypotension) and GI bleed
- If a-fib with RVR consider IV metoprolol as needed for rate control
- Continue to monitor in IMU
#Hyperlipidemia
- Continue Rosuvastatin
#Type II diabetes mellitus
- AccuChecks
- SSI
- hold glipizide
#GERD
- IV protonix while acutely ill
Code Status: Full Code
DVT Prophylaxis: SCDs only. NO CHEMICAL DVT PROPHYLAXIS.
Hgb of 5.4 with symptomatic anemia and bleeding needing blood transfusions and admission to the IMU is a high-risk encounter.
[2025-03-29] MEDS: NSS (PRESERVATIVE FREE) 10 ML IV (20:55)
[2025-03-29] MEDS: CRESTOR 40 MG PO (20:55)
[2025-03-29] MEDS: PROTONIX IV 40 MG IV (20:55)
[2025-03-29] MEDS: ELAVIL 75 MG PO (21:08)
[2025-03-29] MEDS: NOVOLOG FLEXPEN-LOW RESISTANCE SC (23:34)
[2025-03-29 23:46] LABS: Glucose - Point of Care 98 mg/dl (70-99)
[2025-03-30] VITALS (22 sets, daily range): BP systolic 83–135; BP diastolic 56–83; PULSE 80; BMI 44.9
--- NOTE | 2025-03-30 01:00 | PTCARENOTE ---
Admitted pt overnight. aaox3 pleasant, spouse at bedside. VSS, NSR, remains RA. Cpap HS. Denies pain. C/o slight SOB when moving around. Pale in color. 1 unit prbc given in ED, 2nd unit given on floor. Will recheck hgb. 1 bright red BM. SCDs. NPO.
Will monitor.
[2025-03-30 05:14] LABS: Blood Urea Nitrogen 11 mg/dl (7-17); Calcium 8.1 mg/dl (8.4-10.2); Carbon Dioxide 29 mmol/L (22-30); Chloride 110 mmol/L (98-107); Estimated Creatinine Clearance 79 ml/min; Glucose 90 mg/dl (70-99); Potassium 4.1 mmol/L (3.5-5.1); Sodium 140 mmol/L (135-145); eGFR > 60.00
[2025-03-30 05:19] LABS: Hematocrit 22.0 % (37.0-47.0); Hemoglobin 6.9 g/dL (12.0-16.0); Mean Corp Hgb Conc. 31.4 g/dL (33.0-37.0); Mean Corpuscular Volume 81.2 fL (81.0-99.0); Platelet Count 128 10^3/uL (130-400); Red Cell Dist. Width 18.3 % (11.5-14.5)
[2025-03-30] MEDS: NOVOLOG FLEXPEN-LOW RESISTANCE SC (05:28)
[2025-03-30 05:39] LABS: Glucose - Point of Care 108 mg/dl (70-99)
--- NOTE | 2025-03-30 05:45 | PTCARENOTE ---
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 No changes with patient. Bp soft. Pt due to transfer to a new room, report was given to RN. No other issues.
--- NOTE | 2025-03-30 06:18 | PTCARENOTE ---
Patient transferred from room 3356 to room 3363 awake and oriented x4. Able to make her needs known. Patient verbalizes having 'golfers pain' to her right elbow. Pt does not take medication for pain. Plan of care the remainder of the shift reviewed
with the patient. Assisted the patient oob to the bathroom. Patient utilizes cane + 1 standby assist. Gait is stead. HR 90 and RR 19. Clear breath sounds. +1 bilateral lower extremities edema. SCDs are in use. Assisted the patient back in bed. One
unt prbc is transfusing to the right wrist 22 g.. Left AC 20 g and Rt forearm 22 gauge are patent
--- NOTE | 2025-03-30 06:32 | PTCARENOTE ---
Patient had bright red stool.
--- NOTE | 2025-03-30 07:39 | PTCARENOTE ---
0700 assumed care; Patient in bed; AAO x3 Denies pain. BP via left upper arm 83/69 (75); NSR 78; RR 18; 96%RA; PRBC infusing at 100/hr
[2025-03-30] MEDS: VITAMIN D3 (cholecalciferol) 50 MCG PO (07:56)
[2025-03-30] MEDS: PROTONIX IV 40 MG IV ×2 (07:56→20:57)
[2025-03-30] MEDS: FEOSOL 325 MG PO (07:56)
[2025-03-30] MEDS: NSS (PRESERVATIVE FREE) 10 ML IV ×2 (07:56→20:57)
--- NOTE | 2025-03-30 08:04 | W.PN.HOSP.TC ---
Today's Communication/Plan
-
KCentra given continued bleeding episodes
Monitor H&H
Continue to hold Eliquis of course
Continue to monitor in IMU/ICU
Assessment / Plan
Assessment / Plan
Physical Exam
General: Not in acute distress
HEENT: Normocephalic, Moist mucous membranes and Atraumatic
Respiratory: Clear to Auscultation Bilaterally
Cardiac: S1/S2 and Regular Rhythm
GI: Soft, Non Tender, Non Distended and Normal Bowel Sounds
Musculoskeletal: No Cyanosis and No Edema
Skin: Warm. Dry.
Neuro: AAOx3. Nonfocal/grossly intact
Psych: Calm and Intact Judgment/Insight
Assessment/Plan
#Acute symptomatic anemia blood loss anemia secondary to rectal bleeding
#Internal Hemorrhoids status post transanal hemorrhoidal dearterialization x 4 on 03/16/[address] Cortez
- Continue to hold patient's Eliquis
- Initial hgb 5.4, now improved to 8.2 after 3 units PRBCs
- Consult Colorectal Surgery -- I discussed case with Dr. Wray and for now just PRBC transfusion and hold Eliquis
- trend H/H
- Continue to hold Eliquis to washout followed by flexible sigmoidoscopy and possible hemorrhoid treatment (e.g. an excision/ligation or possibly a stapled appendectomy but will depend upon the operative findings, as per
colorectal surgeon -- anticipated procedure in 2 to 3 days
- Bleeding has been recurring --> colorectal surgery recommended KCentra which was given on 03/30/25
- I notified patient's phonograph cartridge assembler Dr. Valadez that we will give patient KCentra and Dr. Valadez was in agreement with that management
- Okay for clear liquids diet
- Continue to monitor in IMU
#Paroxysmal atrial fibrillation
- Continue to hold Eliquis
- Hold home Diltiazem in setting of softer blood pressures (with potential for worsening hypotension) and GI bleed
- If a-fib with RVR, consider IV metoprolol as needed for rate control
- Continue to monitor in IMU/ICU
#Hyperlipidemia
- Continue Rosuvastatin
#Type II diabetes mellitus
- AccuChecks
- SSI
- hold glipizide
#GERD
- IV protonix while acutely ill
Code Status: Full Code
DVT Prophylaxis: SCDs only. NO CHEMICAL DVT PROPHYLAXIS.
Symptomatic anemia and bleeding needing blood transfusions and KCentra, is a high-risk encounter.
Anticipated Discharge: > 48 hours
Subjective/Interval History
-
Date of Service: March 30, 2025
Patient was seen and examined. She reported continued rectal bleeding, but she denied dizziness, chest palpitations or any other new complaints.
Objective Data
-
Labs:
Laboratory Results
03/29/25 03/30/25
20:34 04:36
WBC 5.0
Hgb Cancelled 6.9 L* D
Hct Cancelled 22.0 L
Plt Count 128 L D
Sodium 140
Potassium 4.1
Chloride 110 H
Carbon Dioxide 29
BUN 11
Creatinine 0.6
Glucose 90
Calcium 8.1 L
Vital Signs:
Vital Signs
Temp Pulse Resp BP Pulse Ox
98.3 F 79 15 83/69 97
03/30/25 08:02 03/30/25 07:30 03/30/25 07:30 03/30/25 07:30 03/30/25 07:15
I&O
03/29/25 03/30/25 03/31/25
06:59 06:59 06:59
Intake Total 500 / 500
Balance 500 / 500
[2025-03-30 08:54] LABS: Glycohemoglobin (HgbA1c) 6.2 % (4.0-5.6)
--- NOTE | 2025-03-30 09:01 | PTCARENOTE ---
Blood transfusion completed; BP 128/74 NSR 800' RR 21; 96%RA
--- NOTE | 2025-03-30 10:28 | CON.CRS ---
Consultation
-
Date/Time Consultation Requested: 03/29/25 @ 20:34
Date/Time Consultation Performed: 03/30/25 @ 9:00
Requesting Provider: EYAD Bedoya
Performing Provider: Parker Wray MD
Reason for Consultation: Rectal bleeding/anemia
Medical History
-
Chief Complaint: Rectal bleeding
History of Present Illness:
79-year-old female on Eliquis for paroxysmal atrial fibrillation admitted last evening with rectal bleeding and anemia. She underwent a THD by Dr. Cortez on 03/16/2025. Postoperatively she had significant pain and intermittent bleeding. The
bleeding is bright red and can occur without bowel movements. Her bowels have been irregular and she still has some discomfort. Lately she has been feeling short of breath and fatigued and her outpatient hemoglobin was 6 g/dL and she was
referred to the ED. Her last dose of Eliquis was yesterday morning.
Her hemoglobin yesterday in the ED was 5.4 g/dL and she received 2 units of blood and her last hemoglobin at 436 this morning was 6.9 g/dL. 1 more unit has been ordered. Overall she feels better and her last episode of bleeding was several hours
ago. She has had some transient hypotension but at present her blood pressure is 128/74 and she is not tachycardic. She denies any chest pain or abdominal pain. Her last colonoscopy by Dr. Pink was on 04/20/2024 and in addition to hemorrhoids
there were a few small angiodysplastic lesions at the hepatic flexure and ascending colon. Mild melanosis was also noted and several polyps were removed from the ascending colon.
Past Medical History
Past Medical History: Arrhythmias (Paroxysmal atrial fibrillation), GERD, Hypercholesterolemia and NIDDM
Past Surgical History: Cholecystectomy, Gynecological (Tubal ligation 1969; D&C) and Orthopedic (Left hip 2019; right knee replacement 2019; back surgery)
Social History
Tobacco: Non-Smoker
Alcohol: Occasional
Personal:
Family History
Family History: Reviewed & Noncontributory
Allergies / Home Medications
Allergy/AdvReac Type Severity Reaction Status Date / Time
No Known Allergies Allergy Verified 03/29/25 15:01
�Medication �Instructions �Recorded �Confirmed �Type
cholecalciferol (vitamin D3) 50 2,000 unit PO DAILY Supplement 01/14/15 03/29/25 History
mcg (2,000 unit) capsule (Vitamin
D3)
pantoprazole 40 mg tablet,delayed 40 mg PO DAILY Gastrointestinal 04/16/20 03/29/25 History
release issue
apixaban 5 mg tablet (Eliquis) 5 mg PO BID ##0 08/01/20 03/29/25 Rx
diltiazem HCl 120 mg 120 mg PO DAILY 11/09/22 03/29/25 History
capsule,extended release 24 hr,
controlled
estradiol 0.01% (0.1 mg/gram) 1 g vaginal PRN PRN dryness 11/09/22 03/29/25 History
vaginal cream (Estrace)
glipizide 2.5 mg tablet 2.5 mg PO DAILY 02/08/25 03/29/25 History
amitriptyline 75 mg tablet 75 mg PO HS 03/14/25 03/29/25 History
ferrous sulfate 134 mg (27 mg 134 mg PO DAILY 03/14/25 03/29/25 History
iron) tablet
mirabegron 50 mg tablet,extended 50 mg PO DAILY 03/14/25 03/29/25 History
release 24 hr (Myrbetriq)
rosuvastatin 40 mg tablet 40 mg PO HS 03/14/25 03/29/25 History
Review of Systems
-
History Source: Patient
All other systems: Negative unless noted
A 10 point review of systems was completed, and was negative except as per HPI.
Physical Exam
Vital Signs
Temp 98.3 F 03/30/25 08:59
Pulse 81 03/30/25 08:59
Resp Rate 20 03/30/25 08:59
Blood pressure 128/74 03/30/25 08:59
SaO2 97 03/30/25 07:15
03/29/25 03/30/25 03/31/25
06:59 06:59 06:59
Actual Weight 100.8 kg
Body Mass Index (BMI) 44.9
Lab Results / Allergies
03/30/25 04:36
03/30/25 04:36
WBC 5.0 10^3/uL (4.8-10.8) 03/30/25 04:36
Hgb 6.9 g/dL (12.0-16.0) L* D 03/30/25 04:36
Hct 22.0 % (37.0-47.0) L 03/30/25 04:36
Plt Count 128 10^3/uL (130-400) L D 03/30/25 04:36
Abs Immat Gran (auto) 0.0 10^3/uL (0-0.05) 03/29/25 15:18
Neutrophils % 67.8 % (42.2-75.2) 03/29/25 15:18
Allergy/AdvReac Type Severity Reaction Status Date / Time
No Known Allergies Allergy Verified 03/29/25 15:01
Physical Exam
General: Well Developed, Well Nourished and No Apparent Distress
HEENT: Scleral Icterus
GI: Soft and Non Tender
Rectal: Other (Enlarged external hemorrhoid circumferentially (chronic); [facility] with no gross blood or masses.)
Neuro: Awake and Alert
Data Reviewed
-
Labs: Labs Reviewed by me and Discussed with Patient
Assessment / Plan
-
Rectal bleeding and anemia after undergoing a 4 column THD on 03/16/2025 and the patient on Eliquis.
At the present time she is deemed to be stable and there is no evidence of active bleeding. I recommend allowing Eliquis to washout followed by flexible sigmoidoscopy and possible hemorrhoid treatment. Hemorrhoid treatment may consist of an
excision/ligation or possibly a stapled appendectomy but will depend upon the operative findings.
If the bleeding recurs, I would consider either Kcentra or perhaps tranexamic acid. Assuming the bleeding is manageable, I will arrange for the procedure in 2 to 3 days. Risks of the procedure include, but not limited to, bleeding, infection,
perforation from the scope, anal stenosis, incontinence, and the risks of anesthesia. The timing to restart Ilda will be dictated by her clinical course. All questions answered. She is okay for clear liquids now.
--- NOTE | 2025-03-30 11:25 | CM ---
A-Fib, HGB 6.0: Initial assessment completed with patient who lives with her and adult son in a 3 story plus basement home with B.B on 3rd, 1/2 bath on 1st, 3 steps to enter. 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 In
the home is a RW, SPC and rollator. No in-home services. No HC-POA. No VA benefits. No psychiatric hospitalizations. PCP is Dr. Leonor Chavira. Pharmacy is [facility] in [place]. Discharge POC: Anticipate home with no needs. Possible HH RN.
[2025-03-30 13:16] LABS: Glucose - Point of Care 174 mg/dl (70-99)
[2025-03-30] MEDS: NOVOLOG FLEXPEN-LOW RESISTANCE 1 UNITS SC ×2 (13:34→18:15)
--- NOTE | 2025-03-30 14:16 | PTCARENOTE ---
Patient in bed. Ambulates to bathroom with Rolling walker. BP via left upper arm: 121/62 MAP 80; Normal Sinus Rhythm on telemetry 81; RR 17; RR 18; Dyspnea on exertion; Patient denies dizziness, complains of feeling fatigued; patient denies pain.
Intermittent bleeding with bright red which can occur without bowel movements. Post Blood am blood transfusion H/H have not been re-checked. Dr Heller aware
--- NOTE | 2025-03-30 15:37 | W.PN.UPDATE ---
Update Note
Progress Note Update
I was notified by nursing that patient continues to bleed with bowel movements. Spoke with Harjit Camargo ordered. Discussed with Dr. Lemos who also discussed with her marine insulator, Dr. Valadez, and all have agreed.
--- NOTE | 2025-03-30 16:05 | PTCARENOTE ---
Since beginning of the shift patient had 4 episodes of bright red blood while she was on a toilet, with and without bowel movement. Patient denies dizziness. SBP 120's HR: Normal Sinus Rhythm 96; Dr Lemos and Reynaldo, physician welder assistant
notified. CBC will be rechecked per current order
[2025-03-30 16:26] LABS: Hematocrit 26.5 % (37.0-47.0); Hemoglobin 8.2 g/dL (12.0-16.0); Mean Corp Hgb Conc. 30.9 g/dL (33.0-37.0); Mean Corpuscular Volume 82.0 fL (81.0-99.0); Platelet Count 146 10^3/uL (130-400); Red Cell Dist. Width 18.1 % (11.5-14.5)
[2025-03-30] MEDS: KCENTRA 100 UNIT IV (16:59)
--- NOTE | 2025-03-30 17:02 | PTCARENOTE ---
KCENTRA adm per order, patient in agreement of taking medication; Infusing at 8.4ml/min 504 ml/hr over 11 mints; infusing via RT FA
--- NOTE | 2025-03-30 18:32 | PTCARENOTE ---
report received. aaox3. ambulated from wc to bed in 3341. nsr. vss. plan of care updated. will monitor.
[2025-03-30 18:34] LABS: Glucose - Point of Care 175 mg/dl (70-99)
[2025-03-30 20:25] LABS: Hematocrit 27.2 % (37.0-47.0); Hemoglobin 8.5 g/dL (12.0-16.0)
[2025-03-30] MEDS: ELAVIL 75 MG PO (20:57)
[2025-03-30] MEDS: CRESTOR 40 MG PO (20:57)
[2025-03-30 21:43] LABS: Glucose - Point of Care 149 mg/dl (70-99)
[2025-03-31] VITALS (14 sets, daily range): BP systolic 95–130; BP diastolic 63–84; PULSE 80–110; BMI 44.6
[2025-03-31 03:52] LABS: Hematocrit 27.1 % (37.0-47.0); Hemoglobin 8.2 g/dL (12.0-16.0)
[2025-03-31 05:56] LABS: Mean Corp Hgb Conc. 30.1 g/dL (33.0-37.0); Mean Corpuscular Volume 83.7 fL (81.0-99.0); Platelet Count 151 10^3/uL (130-400); Red Cell Dist. Width 18.2 % (11.5-14.5)
[2025-03-31] MEDS: FEOSOL 325 MG PO (09:04)
[2025-03-31] MEDS: NOVOLOG FLEXPEN-LOW RESISTANCE SC ×2 (09:04→18:11)
[2025-03-31] MEDS: VITAMIN D3 (cholecalciferol) 50 MCG PO (09:04)
[2025-03-31] MEDS: NSS (PRESERVATIVE FREE) 10 ML IV ×2 (09:05→22:00)
[2025-03-31] MEDS: PROTONIX IV 40 MG IV ×3 (09:05→22:00)
[2025-03-31 09:13] LABS: Glucose - Point of Care 123 mg/dl (70-99)
--- NOTE | 2025-03-31 11:55 | W.PN.HOSP.TC ---
Today's Communication/Plan
-
serial CBC
Assessment / Plan
Assessment / Plan
79yo M with PMHX of insomnia, Afib on Eliquis, LAVINIA, DM, HLD, GERD, Transanal hemorrhoidal dearterialization x 4, bilateral pudendal nerve block on 03/16/25 had continuing bleeding since her procedure and came with low hgb 5.4. S/P KCentra on 03/30/25
A/P:
#Acute blood loss anemia 2/2 lower GIB exacerbated by Elqiuis and possibly due to recent internal hemorrhoids dearterialization
Colorectal Sx: planned flexible simoidoscopy
Serial Hgb, transfuse to keep >7
Eliquis on hold
S/P Kcentra
#Paroxysmal Afib
Hold eliquis
Telemetry
HR control: hold cardizem due to low BP
#DM type 2 with unspecified complications
Accuchecks, Insulin SS, DM diet
hold oral hypoglycemics
#HLD
#GERD
#Urinary urgency
#Insomnia
cont home meds
DVT ppx SCDs
Full code
I have spent at least 55min reviewing chart, test results, communication with consultants and providing direct patient care
Anticipated Discharge: > 48 hours
Subjective/Interval History
-
Date of Service: March 31, 2025
Objective Data
-
Labs:
Laboratory Results
03/31/25 03/31/25 03/31/25
03:35 06:00 08:00
WBC 6.4 Cancelled
Hgb 8.2 L Cancelled Cancelled
Hct 27.1 L Cancelled Cancelled
Plt Count 151 Cancelled
Sodium Cancelled
Potassium Cancelled
Chloride Cancelled
Carbon Dioxide Cancelled
BUN Cancelled
Creatinine Cancelled
Glucose Cancelled
Calcium Cancelled
Total Bilirubin Cancelled
AST Cancelled
ALT Cancelled
Alkaline Phosphatase Cancelled
03/31/25
16:00
WBC Pending
Hgb Pending
Hct Pending
Plt Count Pending
Sodium Pending
Potassium Pending
Chloride Pending
Carbon Dioxide Pending
BUN Pending
Creatinine Pending
Glucose Pending
Calcium Pending
Total Bilirubin Pending
AST Pending
ALT Pending
Alkaline Phosphatase Pending
Vital Signs:
Vital Signs
Temp Pulse Resp BP Pulse Ox
97.9 F 81 14 118/77 96
03/31/25 07:35 03/31/25 06:00 03/31/25 06:00 03/31/25 06:00 03/31/25 06:00
I&O
03/30/25 03/31/25 04/01/25
06:59 06:59 06:59
Intake Total 500 / 1230 1220 / 1220
Balance 500 / 1230 1220 / 1220
Review of Systems
-
History Source: Patient
All other systems: Reviewed and negative
Physical Exam
-
General: No Apparent Distress
HEENT: Normocephalic
Respiratory: Clear to Auscultation
Cardiac: Regular Rhythm
GI: Soft, Nontender and Nondistended
Musculoskeletal: No Clubbing, No Cyanosis and No Edema
Neuro: Awake, Alert, Oriented and AO x 3
Psych: Calm
[2025-03-31 12:25] LABS: Glucose - Point of Care 175 mg/dl (70-99)
--- NOTE | 2025-03-31 13:42 | W.PN.GS2 ---
Addendum entered and electronically signed by Geraldo Hummel MD 03/31/25 13:51:
Patient seen and examined. Agree with assessment plan as documented below.
Original Note:
Today's Communication / Plan
-
Liquid diet
Trend labs
Assessment / Plan
-
79 yo female on Eliquis (LD 03/29) presenting for rectal bleeding and anemia after undergoing a 4 column THD on 03/16/2025
Ongoing rectal bleeding s/p KCentra on 03/30
Acute blood loss anemia: H/H currently stable s/p 3 units of PRBC's (last unit given on 03/30)
Afebrile, BP low normal but stable. No tachycardia
Plan:
Ok for FLD, would hold here
Flex Sigmoidoscopy tentatively early next week pending pt progress
C/W AC on hold
Labs later this afternoon and in AM
Medical management as per primary team
Subjective Data
-
Date of Service: March 31, 2025
Pt seen and examined at bedside with Dr. Hummel. Denies n/v. Denies pain. Continues to pass thin amount of bright red blood rectally, flushed toilet this am and unable to evaluate. Denies passage of clots. No dizziness or lightheadedness.
Objective Data
-
Intake and Output
03/30/25 03/31/25 04/01/25
06:59 06:59 06:59
Intake Total 500 / 1230 1220 / 1220
Balance 500 / 1230 1220 / 1220
Intake:
Oral fluids 720 / 720
Blood Products 250 / 250
Packed red blood cells 250 / 250
Blood Product Amount Infused ( 500 / 500 250 / 250
mL)
Packed Rbc Leukoreduced Unit 250 / 250
[id number]
Packed Rbc Leukoreduced Unit 0 / 0 250 / 250
[id number]
Packed Rbc Leukoreduced Unit 250 / 250
[id number]
Other:
Number of approximated MODERATE 1 1
amounts of urine
How many times incontinent 3
SATURATED amount urine
Vital Signs
Temp Pulse Resp BP Pulse Ox
97.9 F 81 14 118/77 96
03/31/25 07:35 03/31/25 06:00 03/31/25 06:00 03/31/25 06:00 03/31/25 06:00
Calcium Cancelled 03/31/25 06:00
Phosphorus Cancelled 03/31/25 06:00
Magnesium Cancelled 03/31/25 06:00
Total Bilirubin Cancelled 03/31/25 06:00
AST Cancelled 03/31/25 06:00
ALT Cancelled 03/31/25 06:00
Alkaline Phosphatase Cancelled 03/31/25 06:00
Total Protein Cancelled 03/31/25 06:00
Albumin Cancelled 03/31/25 06:00
Physical Exam
-
NAD
ABD soft, nt, nd
[2025-03-31] MEDS: NOVOLOG FLEXPEN-LOW RESISTANCE 1 UNITS SC (14:52)
--- NOTE | 2025-03-31 16:00 | PTCARENOTE ---
pt sitting in the chair most of the shift, ambulating to the bathroom with contact guard. Denies dizziness, lightheadedness or chest pressure. Vital signs stable. Bright red blood per rectum with voiding. No bleeding between voids. No BM today.
Tolerating full liquid diet. continuing to monitor
[2025-03-31 17:01] LABS: Hematocrit 28.3 % (37.0-47.0); Hemoglobin 8.6 g/dL (12.0-16.0); Mean Corp Hgb Conc. 30.4 g/dL (33.0-37.0); Mean Corpuscular Volume 84.2 fL (81.0-99.0); Platelet Count 152 10^3/uL (130-400); Red Cell Dist. Width 18.4 % (11.5-14.5)
[2025-03-31 17:18] LABS: ALT (SGPT) 12 U/L (0-35); AST (SGOT) 17 U/L (14-36); Albumin 3.6 g/dl (3.5-5.0); Alkaline Phosphatase 48 U/L (38-126); Blood Urea Nitrogen 7 mg/dl (7-17); Calcium 8.8 mg/dl (8.4-10.2); Carbon Dioxide 28 mmol/L (22-30); Chloride 106 mmol/L (98-107); Estimated Creatinine Clearance 68 ml/min; Glucose 149 mg/dl (70-99); Magnesium 2.1 mg/dl (1.6-2.3); Potassium 4.0 mmol/L (3.5-5.1); Sodium 139 mmol/L (135-145); Total Protein 5.8 g/dl (6.3-8.2); eGFR > 60.00
[2025-03-31 18:22] LABS: Glucose - Point of Care 137 mg/dl (70-99)
[2025-03-31 21:53] LABS: Glucose - Point of Care 123 mg/dl (70-99)
[2025-03-31] MEDS: ELAVIL 75 MG PO (22:01)
[2025-03-31] MEDS: CRESTOR 40 MG PO (22:01)
[2025-04-01] VITALS (12 sets, daily range): BP systolic 108–153; BP diastolic 57–89; PULSE 94
--- NOTE | 2025-04-01 02:12 | PTCARENOTE ---
Pt received at beginning of shift resting in bed. AAOX3. Denies any pain or discomfort. VSS. Afebrile. SR/ST on CM rate 90-100's. POX RA 93%. Using CPAP overnight. Pt stated she had what she believed to be 3 formed BM's on day shift. After pt was
assisted to bathroom this evening pt had flushed toilet but there were a couple BRB drops on toilet bowl. Pt does admit to some dizziness when sitting on toilet. Pt agreeable to use call [facility] for any assistance oob. Has been using call [facility]
throughout shift. Voiding with no problem. Rest of assessment unchanged. Turns self in bed. Call [facility] remains within reach. Will continue to monitor.
[2025-04-01 03:49] LABS: Hematocrit 27.0 % (37.0-47.0); Hemoglobin 8.1 g/dL (12.0-16.0); Mean Corp Hgb Conc. 30.0 g/dL (33.0-37.0); Mean Corpuscular Volume 83.6 fL (81.0-99.0); Nucleated Red Blood Cells % 0 %; Platelet Count 131 10^3/uL (130-400); Red Cell Dist. Width 18.2 % (11.5-14.5)
[2025-04-01 04:13] LABS: ALT (SGPT) < 10 U/L (0-35); AST (SGOT) 16 U/L (14-36); Albumin 3.2 g/dl (3.5-5.0); Alkaline Phosphatase 49 U/L (38-126); Blood Urea Nitrogen 9 mg/dl (7-17); Calcium 8.7 mg/dl (8.4-10.2); Carbon Dioxide 28 mmol/L (22-30); Chloride 107 mmol/L (98-107); Estimated Creatinine Clearance 79 ml/min; Glucose 137 mg/dl (70-99); Potassium 3.9 mmol/L (3.5-5.1); Sodium 138 mmol/L (135-145); Total Protein 5.2 g/dl (6.3-8.2); eGFR > 60.00
--- NOTE | 2025-04-01 08:39 | W.PN.HOSP.TC ---
Today's Communication/Plan
-
continue to hold Eliquis - discussed stroke risk, but with current ongoing bleeding - should be held. In SR at this time
cont to trend Hgb q12h, patient hemodynamically stable
Assessment / Plan
Assessment / Plan
79yo M with PMHX of insomnia, Afib on Eliquis, LAVINIA, DM, HLD, GERD, Transanal hemorrhoidal dearterialization x 4, bilateral pudendal nerve block on 03/16/25 had continuing bleeding since her procedure and came with low hgb 5.4. S/P 3 units PRBC on
admission and KCentra on 03/30/25
A/P:
#Acute blood loss anemia 2/2 lower GIB exacerbated by Elqiuis and possibly due to recent internal hemorrhoids dearterialization
Non-painful, bright red blood per rectum (as per photo done by patient), no concern for UGIB or small bowel bleed.
Colorectal Sx: planned flexible sigmoidoscopy after Eliquis washout, meanwhile Serial Hgb, transfuse to keep >7. If significant drop - CTA
Eliquis on hold
S/P Kcentra
#Paroxysmal Afib
Hold Eliquis
Telemetry
HR control: hold cardizem due to low BP
#DM type 2 with unspecified complications
Accuchecks, Insulin SS, DM diet
hold oral hypoglycemics
#HLD
#GERD
#Urinary urgency
#Insomnia
cont home meds
DVT ppx SCDs
Full code
I have spent at least 36min reviewing chart, test results, communication with consultants and providing direct patient care
Anticipated Discharge: > 48 hours
Subjective/Interval History
-
Date of Service: April 01, 2025
Objective Data
-
Labs:
Laboratory Results
04/01/25
03:38
WBC 5.9
Hgb 8.1 L
Hct 27.0 L
Plt Count 131
Sodium 138
Potassium 3.9
Chloride 107
Carbon Dioxide 28
BUN 9
Creatinine 0.6
Glucose 137 H
Calcium 8.7
Total Bilirubin 0.4
AST 16
ALT < 10
Alkaline Phosphatase 49
Vital Signs:
Vital Signs
Temp Pulse Resp BP Pulse Ox
98.2 F 92 15 153/89 97
04/01/25 03:00 04/01/25 06:00 04/01/25 06:00 04/01/25 06:00 04/01/25 06:00
I&O
03/31/25 04/01/25 04/02/25
06:59 06:59 06:59
Intake Total 1220 / 1220 800 / 800
Balance 1220 / 1220 800 / 800
Review of Systems
-
History Source: Patient
All other systems: Reviewed and negative
Abdomen/GI: Reports Bloody Stools
Physical Exam
-
General: No Apparent Distress
HEENT: Normocephalic
Respiratory: Clear to Auscultation
Cardiac: Regular Rhythm
GI: Soft, Nontender and Nondistended
Neuro: Awake, Alert, Oriented and AO x 3
Psych: Calm
[2025-04-01 09:02] LABS: Glucose - Point of Care 158 mg/dl (70-99)
[2025-04-01] MEDS: NOVOLOG FLEXPEN-LOW RESISTANCE 1 UNITS SC ×2 (09:02→12:49)
[2025-04-01] MEDS: NSS (PRESERVATIVE FREE) 10 ML IV ×2 (09:03→19:50)
[2025-04-01] MEDS: FEOSOL 325 MG PO (09:03)
[2025-04-01] MEDS: VITAMIN D3 (cholecalciferol) 50 MCG PO (09:03)
[2025-04-01] MEDS: MYRBETRIQ EXTENDED RELEASE 50 MG PO (09:03)
[2025-04-01 12:58] LABS: Glucose - Point of Care 179 mg/dl (70-99)
--- NOTE | 2025-04-01 13:12 | W.PN.GS2 ---
Addendum entered and electronically signed by Geraldo Hummel MD 04/01/25 13:34:
Patient seen examined. Agree with assessment and plan as documented below.
Original Note:
Today's Communication / Plan
-
Trend labs
Assessment / Plan
-
79 yo female on Eliquis (LD 03/29) presenting for rectal bleeding and anemia after undergoing a 4 column THD on 03/16/2025
s/p KCentra on 03/30
Improvement in rectal bleeding
Acute blood loss anemia: H/H currently stable s/p 3 units of PRBC's (last unit given on 03/30)
Afebrile, BP low normal but stable. No tachycardia
Plan:
Full liquids for now
Flex Sigmoidoscopy tentatively Wednesday vs Wednesday pending pt course
C/W AC on hold
Follow labs
Medical management as per primary team
Subjective Data
-
Date of Service: April 01, 2025
Pt seen and examined at bedside with Dr. Hummel. Denies n/v. Bleeding has certainly slowed. Passed 3 bm's with some minimal blood around them. Denies pain.
Objective Data
-
Intake and Output
03/31/25 04/01/25 04/02/25
06:59 06:59 06:59
Intake Total 1220 / 1220 800 / 800
Balance 1220 / 1220 800 / 800
Intake:
Oral fluids 720 / 720 400 / 400
IV fluids (Total) 400 / 400
Blood Products 250 / 250
Packed red blood cells 250 / 250
Blood Product Amount Infused ( 250 / 250
mL)
Packed Rbc Leukoreduced Unit 250 / 250
[id number]
Other:
Number of approximated MODERATE 1 3
amounts of urine
How many times incontinent 3
SATURATED amount urine
Number of unmeasured liquid
stools
Rectum 1
Vital Signs
Temp Pulse Resp BP Pulse Ox
98.2 F 88 19 119/68 94
04/01/25 03:00 04/01/25 10:00 04/01/25 10:00 04/01/25 10:00 04/01/25 11:07
Lab Results
04/01/25 03:38
Calcium 8.7 mg/dl (8.4-10.2) 04/01/25 03:38
Phosphorus 4.2 mg/dl (2.5-4.5) 03/31/25 16:41
Magnesium 2.1 mg/dl (1.6-2.3) 03/31/25 16:41
Total Bilirubin 0.4 mg/dl (0.2-1.3) 04/01/25 03:38
AST 16 U/L (14-36) 04/01/25 03:38
ALT < 10 U/L (0-35) 04/01/25 03:38
Alkaline Phosphatase 49 U/L (38-126) 04/01/25 03:38
Total Protein 5.2 g/dl (6.3-8.2) L 04/01/25 03:38
Albumin 3.2 g/dl (3.5-5.0) L 04/01/25 03:38
Physical Exam
-
NAD
ABD soft, nt, nd
--- NOTE | 2025-04-01 13:26 | PTCARENOTE ---
Pt's assessment as documented. Aox3. NSR with 1st degree heart block on tele monitor. VSS. Medications administered as ordered, see MAR. Voiding in BR with assist of one. Denies BM at this time but blood noted after void. Pt ringing appropriately,
call [facility] within reach.
[2025-04-01 17:29] LABS: Glucose - Point of Care 134 mg/dl (70-99)
[2025-04-01 17:31] LABS: Hematocrit 25.1 % (37.0-47.0); Hemoglobin 7.6 g/dL (12.0-16.0)
[2025-04-01] MEDS: NOVOLOG FLEXPEN-LOW RESISTANCE SC (17:34)
--- NOTE | 2025-04-01 18:30 | PTCARENOTE ---
Pt with drop in hgb- see labs. Dr. Villalobos notified, no further orders received at this time.
[2025-04-01] MEDS: PROTONIX IV 40 MG IV (19:49)
[2025-04-01] MEDS: CRESTOR 40 MG PO (19:50)
[2025-04-01] MEDS: ELAVIL 75 MG PO (19:50)
[2025-04-01 21:28] LABS: Glucose - Point of Care 222 mg/dl (70-99)
[2025-04-02] VITALS (20 sets, daily range): BP systolic 91–134; BP diastolic 48–81; PULSE 100
[2025-04-02 04:42] LABS: Hematocrit 24.5 % (37.0-47.0); Hemoglobin 7.5 g/dL (12.0-16.0); Mean Corp Hgb Conc. 30.6 g/dL (33.0-37.0); Mean Corpuscular Volume 82.8 fL (81.0-99.0); Platelet Count 142 10^3/uL (130-400); Red Cell Dist. Width 18.5 % (11.5-14.5)
[2025-04-02 04:56] LABS: ALT (SGPT) < 10 U/L (0-35); AST (SGOT) 15 U/L (14-36); Albumin 3.1 g/dl (3.5-5.0); Alkaline Phosphatase 50 U/L (38-126); Blood Urea Nitrogen 10 mg/dl (7-17); Calcium 8.7 mg/dl (8.4-10.2); Carbon Dioxide 30 mmol/L (22-30); Chloride 106 mmol/L (98-107); Estimated Creatinine Clearance 79 ml/min; Glucose 138 mg/dl (70-99); Potassium 4.0 mmol/L (3.5-5.1); Sodium 138 mmol/L (135-145); Total Protein 5.1 g/dl (6.3-8.2); eGFR > 60.00
--- NOTE | 2025-04-02 05:43 | PTCARENOTE ---
No acute events overnight. Small amount of bright red bleeding in toilet after urination. Am hgb 7.5. Mild dizziness reported by patient at times. NPO at midnight for possible flex sig today. Will continue to monitor.
[2025-04-02 07:51] LABS: Glucose - Point of Care 151 mg/dl (70-99)
[2025-04-02] MEDS: NOVOLOG FLEXPEN-LOW RESISTANCE SC ×2 (08:09→18:05)
[2025-04-02] MEDS: PROTONIX IV 40 MG IV ×2 (08:36→19:48)
[2025-04-02] MEDS: NSS (PRESERVATIVE FREE) 10 ML IV ×2 (08:36→19:48)
[2025-04-02] MEDS: MYRBETRIQ EXTENDED RELEASE 50 MG PO (08:36)
[2025-04-02] MEDS: VITAMIN D3 (cholecalciferol) 50 MCG PO (08:37)
[2025-04-02] MEDS: FEOSOL 325 MG PO (08:37)
--- NOTE | 2025-04-02 09:37 | W.PN.HOSP.TC ---
Today's Communication/Plan
-
cont following Hgb and transfuse if <7 or if symptomatic
pending further Colorectal mgmt
Assessment / Plan
Assessment / Plan
79yo M with PMHX of insomnia, Afib on Eliquis, LAVINIA, DM, HLD, GERD, Transanal hemorrhoidal dearterialization x 4, bilateral pudendal nerve block on 03/16/25 had continuing bleeding since her procedure and came with low hgb 5.4. S/P 3 units PRBC on
admission and KCentra on 03/30/25
A/P:
#Acute blood loss anemia 2/2 lower GIB exacerbated by Eliquis and possibly due to recent internal hemorrhoids dearterialization
Non-painful, bright red blood per rectum (as per photo done by patient), no concern for UGIB or small bowel bleed.
Colorectal Sx: planned flexible sigmoidoscopy after Eliquis washout, meanwhile Serial Hgb, transfuse to keep >7. If significant drop - CTA
Eliquis on hold
S/P Kcentra
#Paroxysmal Afib
Hold Eliquis
Telemetry
HR control: hold cardizem due to low BP
#DM type 2 with unspecified complications
Accuchecks, Insulin SS, DM diet
hold oral hypoglycemics
#HLD
#GERD
#Urinary urgency
#Insomnia
cont home meds
DVT ppx SCDs
Full code
I have spent at least 36min reviewing chart, test results, communication with consultants and providing direct patient care
Anticipated Discharge: > 48 hours
Subjective/Interval History
-
Date of Service: April 02, 2025
Objective Data
-
Labs:
Laboratory Results
04/02/25 04/02/25
04:26 18:00
WBC 5.7
Hgb 7.5 L Pending
Hct 24.5 L Pending
Plt Count 142
Sodium 138
Potassium 4.0
Chloride 106
Carbon Dioxide 30
BUN 10
Creatinine 0.6
Glucose 138 H
Calcium 8.7
Total Bilirubin 0.4
AST 15
ALT < 10
Alkaline Phosphatase 50
Vital Signs:
Vital Signs
Temp Pulse Resp BP Pulse Ox
97.6 F 95 16 102/68 92
04/02/25 07:00 04/02/25 06:00 04/02/25 06:00 04/02/25 04:00 04/02/25 08:58
I&O
04/01/25 04/02/25 04/03/25
06:59 06:59 06:59
Intake Total 800 / 800
Balance 800 / 800
Review of Systems
-
History Source: Patient
All other systems: Reviewed and negative
Physical Exam
-
Cardiac: Regular Rhythm; Negative Tachycardic
GI: Soft, Nontender and Nondistended
[2025-04-02] MEDS: NOVOLOG FLEXPEN-LOW RESISTANCE 1 UNITS SC ×2 (12:04→18:22)
[2025-04-02 12:09] LABS: Glucose - Point of Care 165 mg/dl (70-99)
--- NOTE | 2025-04-02 12:10 | W.PN.CRS1 ---
Today's Communication / Plan
-
As below
Assessment/Plan
-
79-year-old female with PMH of A-fib (on Eliquis), HLD, DM, GERD, ANTHONY and bleeding internal hemorrhoids s/p THD x 4 on 03/16 who presented to the ED on 03/29 with rectal bleeding, Hb 5.4, s/p PRBC x 3 (x 2 03/29, x 1 03/30), s/p Kcentra; Hb has
stabilized, but rectal bleeding has persisted
AFVSS
Hb 7.5 from 7.6
� Despite reversal agent, patient continues having rectal bleeding with each BM, enough to turn the water red; recommend exam under anesthesia with flexible sigmoidoscopy to evaluate for source of bleeding; explained that there may be a single
source of bleeding that I could control with suture ligation; there is a chance that there may be diffuse oozing from the 4 column wound beds, for which I would use a hemostatic agent; explained to the remainder of the risks, including
recurrent/persistent bleeding, infection, urinary retention, fecal incontinence and anesthetic risks; patient understood well and agreed to proceed
�Continue n.p.o. with IVF
� Will send stat labs including CBC and coags
� Hold all AC, continue trending Hb every 6 hours until bleeding stopped
� Discussed with hospitalist
Subjective Data
Subjective Data
Date of Service: April 02, 2025
Patient denies any issues overnight. This morning, she had another BM with blood staining the toilet bowl and again just now.
Denies any N/V, abdominal pain or anal pain.
Objective Data
-
Vital Signs
Temp Pulse Resp BP Pulse Ox
97.6 F 96 20 119/81 93
04/02/25 07:00 04/02/25 10:29 04/02/25 10:29 04/02/25 10:29 04/02/25 10:29
Intake & Output
04/01/25 04/02/2525
06:59 06:59 06:59
Intake Total 800 / 800
Balance 800 / 800
Intake:
Oral fluids 400 / 400
IV fluids (Total) 400 / 400
Other:
Number of approximated SMALL 1
amounts of urine
Number of approximated MODERATE 3 1
amounts of urine
How many times incontinent 2
MODERATE amount urine
Number of unmeasured liquid
stools
Rectum 1
Lab Results
04/02/25 04:26
Physical Exam
-
General: No Acute Distress and AOx3
HEENT: Grossly Normal
Abdomen: Soft, Non Distended and Non Tender
Rectal: Other (Deferred (going for exam under anesthesia))
Neurological: No Motor Deficits and No Sensory Deficits
Skin: Warm and Dry
[2025-04-02 12:49] LABS: Hematocrit 26.5 % (37.0-47.0); Hemoglobin 8.2 g/dL (12.0-16.0); Mean Corp Hgb Conc. 30.9 g/dL (33.0-37.0); Mean Corpuscular Volume 83.3 fL (81.0-99.0); Platelet Count 135 10^3/uL (130-400); Red Cell Dist. Width 18.5 % (11.5-14.5)
[2025-04-02 13:00] LABS: APTT 29.6 Sec (23.4-35.0); INR 1.09; PT 14.4 Sec (11.4-14.6)
--- NOTE | 2025-04-02 15:08 | PTCARENOTE ---
Pt to PACU via bed.
--- NOTE | 2025-04-02 15:49 | W.IMMPOSTOP ---
Addendum entered and electronically signed by Oj Cortez MD 04/02/25 16:35:
updated and patient (patient still somewhat sleepy)
Original Note:
Surgical Immed Post Op Note
-
Primary Surgeon: Oj Cortez MD
Assisting Surgeon: None
Pre-op Diagnosis: Rectal bleeding
Post-op Diagnosis: Bleeding internal hemorrhoids
Procedure Performed: Flexible sigmoidoscopy, exam under anesthesia, suture ligation of internal hemorrhoids
Anesthesia Type: General With local
Specimen / Cultures: None
Estimated Blood Loss: 5 mL
Complications: None
Operative Findings: On flexible sigmoidoscopy, advance to 50 cm; no blood or mucosal pathology until rectosigmoid junction at about 15-20 cm, some scant bloody mucus noted; in the rectal vault, a few small hematomas noted, no active bleeding noted
retroflexion; on anoscopy, identified 2 superficial sites of mild oozing at internal hemorrhoids in the posterior midline and right anterior position; control bleeding with [id number] 2-0 Vicryl stitches; hemostasis was achieved; left Gelfoam
roll with Surgicel and anal canal
[2025-04-02 15:52] LABS: Glucose - Point of Care 126 mg/dl (70-99)
--- NOTE | 2025-04-02 15:52 | OR.RPT ---
Operative Report
Operative Report
DATE OF OPERATION: 04/02/2025
SURGEON: Oj Cortez MD
PREOPERATIVE DIAGNOSIS: Rectal bleeding
POSTOPERATIVE DIAGNOSIS: Bleeding internal hemorrhoids
OPERATION: Flexible sigmoidoscopy, exam under anesthesia, suture ligation of bleeding internal hemorrhoids x2
ASSISTANTS:
1. None
ANESTHESIA: General With local
ESTIMATED BLOOD LOSS: 5 mL
FINDINGS:
1. On flexible sigmoidoscopy, advanced to 50cm; identified scant bloody mucus at the rectosigmoid junction; no blood or mucosal pathology proximally; small blood clots noted in the rectum with no obvious active bleeding
2. Two superficial ulcers noted on internal hemorrhoids in the posterior midline and right anterior position, controlled with suture ligation; remainder of internal hemorrhoids without irritation or bleeding
SPECIMENS:
1. None
DRAINS: None
COMPLICATIONS: None
INDICATIONS: The patient is a 79-year-old female who requires Eliquis for a history of A-fib and presented to my office with bleeding internal hemorrhoids. She underwent nonoperative measures, and then underwent sclerotherapy x 2 without
improvement. She was taken to surgery on 03/16/2025 for transanal hemorrhoidal dearterialization x 4 columns. She did well postoperatively, but developed bleeding shortly after. After the bleeding did not improve, she presented to the ED. Her
hemoglobin was 5.6 and she underwent transfusion x 3. Her Eliquis was held and she was given Kcentra. Her hemoglobin stabilized, but she continued having rectal bleeding with BMs. Therefore, the patient was recommended to have surgery to confirm
source of the bleeding and for possible treatment. The operation was discussed with the patient in detail, including the risks, benefits and alternatives. Risks described included, but not limited to persistent/recurrent bleeding, infection, urinary
retention, damage to nearby structures such as the anal sphincter, fecal incontinence, anal stenosis, unexpected finding requiring treatment and anesthetic risks. The patient understood and agreed to proceed. The consent was signed and placed in the
chart.
PROCEDURE IN DETAIL: The patient was taken to the operating room. SMITA stockings were placed bilaterally (the SCD machine was not available). On the stretcher, general anesthesia was induced and the patient was intubated without complication. The
patient was placed on the operating table in prone position. Two seat belts were secured around the legs and upper back. A time-out was performed verifying the correct patient, procedure, operative site, positioning, and special equipment.
Flexible sigmoidoscopy was performed. The sigmoidoscope was passed transanally and advanced to about 50 cm from the anal verge. This was withdrawn and the mucosa was evaluated. There was no stool and visualization was adequate. No blood or
mucosal pathology was identified up until the rectosigmoid junction at about 15-20 cm from the anal verge. There was noted blood-tinged mucus that was easily suctioned. The mucosa appeared normal. The mucosa of the rectum also appeared normal,
but there were a few small hematomas noted distally. The mucosa was evaluated on retroflexion and no obvious bleeding was noted. I suspect that the blood-tinged mucus noted at the rectosigmoid junction was due to retrograde movement from the
rectum. The sigmoidoscope was removed.
The buttocks were taped apart. The perineum was prepped and draped in the usual fashion. The anorectal exam was performed assessing all four quadrants of the anal canal using Jose Luis-Saxena retractors in progressively increasing size. There were
small external hemorrhoids in the normal 3�column distribution without irritation or thrombosis. There were small internal hemorrhoids noted circumferentially without any irritation or inflammation. The burden of hemorrhoidal disease was
significantly improved compared to her initial surgery. The 4 pedicle stitches from the THD procedure were noted about 5 to 6 cm from the anal verge. There was no bleeding noted at the stitches. After evaluating with the Eve, I
noted a small amount of oozing from a superficial ulcer in the posterior midline overlying an internal hemorrhoid, only about 2-3 mm in size. This was controlled with a 2-0 Vicryl in a eprjuc-hi-bexen fashion x 2. Additionally, I noted a small
amount of oozing from another superficial ulcer overlying an internal hemorrhoid in the right anterior position. This was controlled with a 2-0 Vicryl in a [id number] fashion.
The anal canal was copiously irrigated and hemostasis was assured. 30 mL of 0.25% Marcaine with epi and 0.6 mg of dexamethasone were injected perianally. A Gelfoam was rolled and surrounded by Surgicel. This was inserted in the anus to prevent
further bleeding. At this point, the procedure was complete. All needle, sponge and instrument counts were correct. The patient tolerated the procedure well and was transferred to the recovery room in stable condition with gauze dressing in place
secured with silk tape.
DICTATED BY: Oj Cortez MD
[2025-04-02] MEDS: DILAUDID 0.25 MG IV ×2 (16:11→23:34)
[2025-04-02] MEDS: DILAUDID 0.5 MG IV ×2 (16:27→16:40)
--- NOTE | 2025-04-02 17:52 | PTCARENOTE ---
Pt returned from PACU via bed. Andressa dressing C/D/I. Pt sleeping at this time. VSS.
[2025-04-02 18:19] LABS: Hematocrit 29.7 % (37.0-47.0); Hemoglobin 8.9 g/dL (12.0-16.0)
[2025-04-02 18:31] LABS: Glucose - Point of Care 161 mg/dl (70-99)
[2025-04-02] MEDS: ELAVIL 75 MG PO (21:13)
[2025-04-02] MEDS: CRESTOR 40 MG PO (21:13)
[2025-04-02 22:09] LABS: Glucose - Point of Care 272 mg/dl (70-99)
[2025-04-02] MEDS: TYLENOL 650 MG PO (23:09)
--- NOTE | 2025-04-02 23:43 | PTCARENOTE ---
Pt unable to void despite urge. Bladder scan >600. St cath order obtained. St cath output 700ml. Pt c/o 02/08 pain at rectum, site of surgery. Tylenol given per SEP. Pt continues to complain of pain, requests additional analgesic. EYAD contacted,
medicated per SEP. Care ongoing.
[2025-04-03] VITALS (14 sets, daily range): BP systolic 89–135; BP diastolic 60–76; PULSE 96
[2025-04-03] MEDS: DILAUDID 0.25 MG IV (04:23)
[2025-04-03 04:40] LABS: Hematocrit 25.1 % (37.0-47.0); Hemoglobin 7.6 g/dL (12.0-16.0)
--- NOTE | 2025-04-03 07:25 | W.PN.CRS1 ---
Today's Communication / Plan
-
as below
Assessment/Plan
-
79-year-old female with PMH of A-fib (on Eliquis), HLD, DM, GERD, ANTHONY and bleeding internal hemorrhoids s/p THD x 4 on 03/16 who presented to the ED on 03/29 with rectal bleeding, Hb 5.4, s/p PRBC x 3 (x 2 03/29, x 1 03/30), s/p Kcentra; Hb has
stabilized, but rectal bleeding has persisted
POD1 flex sig, EUA, suture ligation of bleeding hemorrhoid x2
AFVSS
Hb 7.6 from 8.9 from 8.2 from 7.5, CR 0.6
�Continue regular diet; will add fiber twice daily
�Monitor for void; will add sitz bath's 2-3 times a day and PRN
�Pain control with Tylenol ATC, tramadol and Dilaudid as needed
�Will start subQ heparin; if no further bleeding, likely will challenge with heparin drip tomorrow
�OOB/IS
� Discussed with hospitalist
Subjective Data
Subjective Data
Date of Service: April 03, 2025
No bleeding overnight, but no bowel movements yet since surgery. Was unable to urinate and required straight cath.
Pain was not well-controlled and patient did not sleep well.
Objective Data
-
Vital Signs
Temp Pulse Resp BP Pulse Ox
98.0 F 81 11 120/69 91
04/03/25 03:09 04/03/25 06:00 04/03/25 06:00 04/03/25 06:00 04/03/25 06:00
Intake & Output
04/02/25 04/03/25 04/04/25
06:59 06:59 06:59
Intake Total 600 / 600
Output Total 700 / 700
Balance -100 / -100
Intake:
IV fluids (Total) 600 / 600
Normosol 600 / 600
Output:
Straight cath output 700 / 700
Other:
Number of approximated SMALL 1
amounts of urine
Number of approximated MODERATE 1
amounts of urine
How many times incontinent 2
MODERATE amount urine
Lab Results
04/02/25 04:26
Physical Exam
-
General: No Acute Distress and AOx3
HEENT: Grossly Normal
Abdomen: Soft, Non Distended and Non Tender
Rectal: Other (Removed outer dressing; anal packing retracted and unable to be removed; no gross blood)
Skin: Warm and Dry
[2025-04-03] MEDS: NSS (PRESERVATIVE FREE) 10 ML IV ×2 (07:47→21:27)
[2025-04-03] MEDS: MYRBETRIQ EXTENDED RELEASE 50 MG PO (07:47)
[2025-04-03] MEDS: METAMUCIL, KONSYL 1 PACKET PO ×2 (07:47→21:27)
[2025-04-03] MEDS: PROTONIX IV 40 MG IV ×2 (07:47→21:27)
[2025-04-03] MEDS: VITAMIN D3 (cholecalciferol) 50 MCG PO (07:47)
[2025-04-03] MEDS: DILAUDID 0.5 MG IV ×3 (07:48→23:58)
[2025-04-03] MEDS: HEPARIN 5000 UNITS SC ×2 (07:48→15:44)
[2025-04-03 08:16] LABS: Glucose - Point of Care 242 mg/dl (70-99)
[2025-04-03] MEDS: NOVOLOG FLEXPEN-LOW RESISTANCE 2 UNITS SC ×2 (09:38→18:27)
--- NOTE | 2025-04-03 09:41 | PTCARENOTE ---
Patient refused bladder scan this AM at 0730. Education provided to patient. Patient said it is OK to bladder scan her now. Bladder scanned and <400. Patient does not feel like she needs to void. Call [facility] within reach and educated to ring call [facility]
if she feels the urge to void. Care ongoing.
--- NOTE | 2025-04-03 10:41 | PN.CDI ---
CDI
- -
CDI:
Physician Documentation Request
Admit Date: 03/29/25 18:34
Dear Doctor Griselda,
Please review the following and provide your response in the progress notes.
Clinical Indicators:
Height: 4'11
Weight: 220 lbs
BMI: 44.5
Other Clinical Notes: Wire Rope Sling Maker note 'morbidly obese range'
If possible, please provide an associated diagnosis related to the abnormal BMI, such as:
Morbid obesity
BMI is not significant
Other (please specify)
Use of terms such as suspected, likely, concern for, or probable (associated with a specific diagnosis that is being evaluated, monitored, or treated as if it exists) are acceptable and can be coded in the inpatient setting, when documented at the
time of discharge.
Thank you,
Armond Noble RN
CDI Specialist
Please use your independent medical judgment in providing your response.
--- NOTE | 2025-04-03 12:25 | W.PN.HOSP.TC ---
Today's Communication/Plan
-
keep monitoring
Assessment / Plan
Assessment / Plan
79yo M with PMHX of insomnia, Afib on Eliquis, LAVINIA, DM, HLD, GERD, Transanal hemorrhoidal dearterialization x 4, bilateral pudendal nerve block on 03/16/25 had continuing bleeding since her procedure and came with low hgb 5.4. S/P 3 units PRBC on
admission and KCentra on 03/30/25
A/P:
#Acute blood loss anemia 2/2 lower GIB exacerbated by Eliquis and possibly due to recent internal hemorrhoids dearterialization
Non-painful, bright red blood per rectum (as per photo done by patient), no concern for UGIB or small bowel bleed.
Colorectal Sx: did flexible sigmoidoscopy after Eliquis washout on 04/02/25 (two superficial ulcers on internal hemorrhoids suture ligation of bleeding internal hemorrhoids x2)- monitor for bleeding, if absent - plan to restart Elqiuis and monitor for
24more hours.
Serial Hgb,
transfuse to keep >7.
Eliquis on hold
S/P Kcentra
#Paroxysmal Afib
Hold Eliquis
Telemetry
HR control: hold cardizem due to low BP
#DM type 2 with unspecified complications
Accuchecks, Insulin SS, DM diet
hold oral hypoglycemics
#HLD
#GERD
#Urinary urgency
#Insomnia
cont home meds
DVT ppx SCDs
Full code
I have spent at least 36min reviewing chart, test results, communication with consultants and providing direct patient care
Anticipated Discharge: > 48 hours
Subjective/Interval History
-
Date of Service: April 03, 2025
Objective Data
-
Labs:
Laboratory Results
04/03/25
04:31
Hgb 7.6 L
Hct 25.1 L
Vital Signs:
Vital Signs
Temp Pulse Resp BP Pulse Ox
97.7 F 81 11 106/66 93
04/03/25 11:58 04/03/25 06:00 04/03/25 06:00 04/03/25 08:00 04/03/25 08:00
I&O
04/02/25 04/03/25 04/04/25
06:59 06:59 06:59
Intake Total 600 / 600
Output Total 700 / 700
Balance -100 / -100
Review of Systems
-
History Source: Patient
All other systems: Reviewed and negative
Physical Exam
-
General: No Apparent Distress
HEENT: Normocephalic
Respiratory: Clear to Auscultation
GI: Soft, Nontender and Nondistended
Skin: Warm
Neuro: Awake, Alert, Oriented and AO x 3
Psych: Calm
[2025-04-03] MEDS: TYLENOL 1000 MG PO ×2 (12:27→17:43)
[2025-04-03 12:30] LABS: Glucose - Point of Care 253 mg/dl (70-99)
[2025-04-03] MEDS: NOVOLOG FLEXPEN-LOW RESISTANCE 3 UNITS SC (14:15)
[2025-04-03] MEDS: ROXICODONE 5 MG PO (15:43)
--- NOTE | 2025-04-03 17:16 | PTCARENOTE ---
Patient AOx3. Anxious at times. Weaned to RA with SpO2 greater than 92%. NSR with first degree on monitor. BP stable. Patient able to void on own. c/o of pain in rectum area. PRN pain medications given per MAR. Tolerating regular diet. Assist x1
when OOB. Call [facility] within reach, bed in lowest position, and bed of wheels locked.
[2025-04-03 17:53] LABS: Glucose - Point of Care 200 mg/dl (70-99)
[2025-04-03 18:51] LABS: Hematocrit 25.1 % (37.0-47.0); Hemoglobin 7.6 g/dL (12.0-16.0)
[2025-04-03] MEDS: ELAVIL 75 MG PO (21:28)
[2025-04-03] MEDS: CRESTOR 40 MG PO (21:28)
[2025-04-03 21:49] LABS: Glucose - Point of Care 209 mg/dl (70-99)
[2025-04-03] MEDS: HEPARIN SC (23:56)
[2025-04-03] MEDS: TYLENOL PO (23:57)
[2025-04-04] VITALS (18 sets, daily range): BP systolic 106–133; BP diastolic 57–78; PULSE 92; BMI 44.0
[2025-04-04] MEDS: HEPARIN SC (00:26)
--- NOTE | 2025-04-04 00:29 | W.PN.UPDATE ---
Update Note
Progress Note Update
Per nursing staff, patient passed the rectal tampon afternoon, blood noted on the toilet seat and the patient passed some blood clots during the night.
-h&h q 6hrs and IVF ordered. Surgeon admissions clerk made aware and new recommendation received to keep the patient NPO for tonight.
-hgb is gradually is declining yesterday 7.6 mid night 7.3 and this am is 7. One unit of blood ordered .
[2025-04-04 01:05] LABS: Hematocrit 24.1 % (37.0-47.0); Hemoglobin 7.3 g/dL (12.0-16.0)
[2025-04-04] MEDS: NSS 1000 IV ×2 (01:15→21:18)
--- NOTE | 2025-04-04 01:29 | PTCARENOTE ---
Pt notified this RN that there was blood on toilet paper after urinating. Two blood clots, each roughly the size of a quarter, were in the toilet. Per dayshift RN, patient passed rectal tampon late this afternoon. EYAD Roger and on-call colorectal
surgery notified. IVF and q6 H&H ordered. Pt made NPO. Current bp 118/70, hr 92. Pt asymptomatic and denies any lightheaded/dizziness. VS and assessment as documented. Repeat Hgb 7.3 and EYAD Roger made aware. Pt currently resting in bed with call
[facility] in reach.
[2025-04-04 05:57] LABS: Hematocrit 23.4 % (37.0-47.0); Hemoglobin 7.0 g/dL (12.0-16.0); Mean Corp Hgb Conc. 29.9 g/dL (33.0-37.0); Mean Corpuscular Volume 85.1 fL (81.0-99.0); Nucleated Red Blood Cells % 0 %; Platelet Count 184 10^3/uL (130-400); Red Cell Dist. Width 18.6 % (11.5-14.5)
[2025-04-04 06:24] LABS: Blood Urea Nitrogen 21 mg/dl (7-17); Calcium 8.4 mg/dl (8.4-10.2); Carbon Dioxide 29 mmol/L (22-30); Chloride 103 mmol/L (98-107); Estimated Creatinine Clearance 67 ml/min; Glucose 211 mg/dl (70-99); Potassium 4.3 mmol/L (3.5-5.1); Sodium 135 mmol/L (135-145); eGFR > 60.00
--- NOTE | 2025-04-04 06:44 | PTCARENOTE ---
Hgb this am 7 and EYAD Roger made aware. 1 unit of blood ordered.
--- NOTE | 2025-04-04 07:32 | PTCARENOTE ---
On walking rounds PT AAOx3 1 unit PRBC started withput incident
[2025-04-04] MEDS: NSS (PRESERVATIVE FREE) 10 ML IV ×2 (08:29→21:20)
[2025-04-04] MEDS: MYRBETRIQ EXTENDED RELEASE 50 MG PO (08:30)
[2025-04-04] MEDS: VITAMIN D3 (cholecalciferol) 50 MCG PO (08:30)
[2025-04-04] MEDS: PROTONIX IV 40 MG IV ×2 (08:30→21:20)
[2025-04-04] MEDS: TYLENOL 1000 MG PO ×3 (08:31→17:18)
[2025-04-04] MEDS: METAMUCIL, KONSYL 1 PACKET PO ×2 (08:31→21:19)
--- NOTE | 2025-04-04 08:35 | W.PN.CRS1 ---
Today's Communication / Plan
-
regular diet, npo midnight
transfuse PRN
hgb q 6 hr
hydrocortisone cream BID
Assessment/Plan
-
79-year-old female with PMH of A-fib (on Eliquis), HLD, DM, GERD, ANTHONY and bleeding internal hemorrhoids s/p THD x 4 on 03/16 who presented to the ED on 03/29 with rectal bleeding, Hb 5.4, s/p PRBC x 3 (x 2 03/29, x 1 03/30), s/p Kcentra; Hb has
stabilized, but rectal bleeding has persisted
POD1 flex sig, EUA, suture ligation of bleeding hemorrhoid x2
AFVSS
Hb 7.0, 7.3, 7.6
�Continue regular diet, NPO at midnight (in case she needs OR if continues to bleed)
�Sitz bath's 2-3 times a day and PRN
�Pain control with Tylenol ATC, tramadol and Dilaudid as needed
�Stop all AC for now
�OOB/IS
�Will at hydrocortisone cream to perianal area BID
- Trend hemoglobin q 6 hours
Subjective Data
Subjective Data
Date of Service: April 04, 2025
Patient states her pain is better. She did urinate yesterday, unsure if blood. She did have bleeding after the rectal tampon was out, stopped for now. 1 unit PRBC transfusing.
Objective Data
-
Vital Signs
Temp Pulse Resp BP Pulse Ox
98 F 88 14 116/69 95
04/04/25 07:40 04/04/25 07:40 04/04/25 07:40 04/04/25 07:40 04/04/25 06:00
Intake & Output
04/03/25 04/04/25 04/05/25
06:59 06:59 06:59
Intake Total 600 / 600 480 / 480 0 / 0
Output Total 700 / 700
Balance -100 / -100 480 / 480 0 / 0
Intake:
Oral fluids 480 / 480
IV fluids (Total) 600 / 600
Normosol 600 / 600
Blood Product Amount Infused ( 0 / 0
mL)
Packed Rbc Leukoreduced Unit 0 / 0
[id number]
Output:
Straight cath output /
Other:
Number of approximated SMALL 1
amounts of urine
Number of approximated MODERATE 2
amounts of urine
Lab Results
04/04/25 05:46
Physical Exam
-
General: No Acute Distress and AOx3
Abdomen: Soft, Non Distended and Non Tender
Skin: Warm and Dry
[2025-04-04] MEDS: NOVOLOG FLEXPEN-LOW RESISTANCE 2 UNITS SC ×2 (08:38→12:17)
[2025-04-04 08:48] LABS: Glucose - Point of Care 218 mg/dl (70-99)
[2025-04-04] MEDS: HYDROCORTISONE 2.5% CREAM 1 APPLIC TOPICAL ×2 (10:34→21:19)
--- NOTE | 2025-04-04 11:17 | W.PN.HOSP.TC ---
Today's Communication/Plan
-
1 unit PRBC due to worsening anemia
had one bloody BM that passed packing as expected
Assessment / Plan
Assessment / Plan
79yo M with PMHX of insomnia, Afib on Eliquis, LAVINIA, DM, HLD, GERD, Transanal hemorrhoidal dearterialization x 4, bilateral pudendal nerve block on 03/16/25 had continuing bleeding since her procedure and came with low hgb 5.4. S/P 3 units PRBC on
admission and KCentra on 03/30/25
A/P:
#Acute blood loss anemia 2/2 lower GIB exacerbated by Eliquis and possibly due to recent internal hemorrhoids dearterialization
Non-painful, bright red blood per rectum (as per photo done by patient), no concern for UGIB or small bowel bleed.
Colorectal Sx: did flexible sigmoidoscopy after Eliquis washout on 04/02/25 (two superficial ulcers on internal hemorrhoids suture ligation of bleeding internal hemorrhoids x2)- monitor for bleeding, if absent - plan to restart Elqiuis and monitor for
24more hours.
Serial Hgb,
transfuse to keep >7.
Eliquis on hold
S/P Kcentra
#Paroxysmal Afib
Hold Eliquis
Telemetry
HR control: hold cardizem due to low BP
#DM type 2 with unspecified complications
Accuchecks, Insulin SS, DM diet
hold oral hypoglycemics
#HLD
#GERD
#Urinary urgency
#Insomnia
cont home meds
#ANTHONY
cont CPAP at night
DVT ppx SCDs
Full code
I have spent at least 51min reviewing chart, test results, communication with consultants and providing direct patient care
Anticipated Discharge: 24 - 48 hours
Subjective/Interval History
-
Date of Service: April 04, 2025
Objective Data
-
Labs:
Laboratory Results
04/04/25 04/04/25 04/04/25
00:49 05:46 12:30
WBC 8.7
Hgb 7.3 L 7.0 L Pending
Hct 24.1 L 23.4 L Pending
Plt Count 184 D
Sodium 135
Potassium 4.3
Chloride 103
Carbon Dioxide 29
BUN 21 H
Creatinine 0.7
Glucose 211 H
Calcium 8.4
04/04/25
18:30
WBC
Hgb Pending
Hct Pending
Plt Count
Sodium
Potassium
Chloride
Carbon Dioxide
BUN
Creatinine
Glucose
Calcium
Vital Signs:
Vital Signs
Temp Pulse Resp BP Pulse Ox
98.3 F 84 14 123/78 96
04/04/25 10:32 04/04/25 10:32 04/04/25 10:32 04/04/25 10:32 04/04/25 08:00
I&O
04/03/25 04/04/25 04/05/25
06:59 06:59 06:59
Intake Total 600 / 600 480 / 480 250 / 250
Output Total 700 / 700
Balance -100 / -100 480 / 480 250 / 250
Review of Systems
-
History Source: Patient
All other systems: Reviewed and negative
Physical Exam
-
General: No Apparent Distress
HEENT: Normocephalic
Cardiac: Regular Rhythm
GI: Soft, Nontender and Nondistended
Neuro: Awake, Alert, Oriented and AO x 3
Psych: Calm
[2025-04-04 11:54] LABS: Glucose - Point of Care 235 mg/dl (70-99)
[2025-04-04 12:59] LABS: Hematocrit 27.1 % (37.0-47.0); Hemoglobin 8.0 g/dL (12.0-16.0)
[2025-04-04 16:56] LABS: Glucose - Point of Care 186 mg/dl (70-99)
[2025-04-04] MEDS: NOVOLOG FLEXPEN-LOW RESISTANCE 1 UNITS SC (17:06)
[2025-04-04 19:36] LABS: Hematocrit 29.5 % (37.0-47.0); Hemoglobin 8.9 g/dL (12.0-16.0)
[2025-04-04] MEDS: CRESTOR 40 MG PO (21:19)
[2025-04-04] MEDS: ELAVIL 75 MG PO (21:19)
[2025-04-04] MEDS: ROXICODONE 5 MG PO (21:19)
[2025-04-05] VITALS (7 sets, daily range): BP systolic 109–126; BP diastolic 65–99; PULSE 83
[2025-04-05] MEDS: TYLENOL 1000 MG PO ×4 (00:01→22:54)
--- NOTE | 2025-04-05 01:44 | PTCARENOTE ---
assumed care of patient from tab RN. Pt aaox3. NSR on monitor with 1st degree. SpO2 96% on 2L NC. IVF infusing. VS and assessment as documented. Pt resting in bed with call [facility] in reach.
[2025-04-05] MEDS: TYLENOL PO (06:08)
[2025-04-05 06:30] LABS: Hematocrit 27.5 % (37.0-47.0); Hemoglobin 8.3 g/dL (12.0-16.0)
[2025-04-05 07:20] LABS: Glucose - Point of Care 143 mg/dl (70-99)
--- NOTE | 2025-04-05 08:40 | PTCARENOTE ---
On walking roundsa pt sleeping with CPAP on. NSS at 7o/hr. strict NPO at this time.No bleeding over night
[2025-04-05] MEDS: VITAMIN D3 (cholecalciferol) 50 MCG PO (09:07)
[2025-04-05] MEDS: NSS (PRESERVATIVE FREE) 10 ML IV ×2 (09:07→22:54)
[2025-04-05] MEDS: PROTONIX IV 40 MG IV ×2 (09:07→22:54)
[2025-04-05] MEDS: NOVOLOG FLEXPEN-LOW RESISTANCE SC ×2 (09:07→11:43)
[2025-04-05] MEDS: MYRBETRIQ EXTENDED RELEASE 50 MG PO (09:07)
[2025-04-05] MEDS: HYDROCORTISONE 2.5% CREAM 1 APPLIC TOPICAL ×2 (09:08→22:11)
[2025-04-05] MEDS: METAMUCIL, KONSYL 1 PACKET PO ×2 (09:08→22:11)
--- NOTE | 2025-04-05 10:15 | W.PN.CRS1 ---
Today's Communication / Plan
-
As below
Assessment/Plan
-
79-year-old female with PMH of A-fib (on Eliquis), HLD, DM, GERD, ANTHONY and bleeding internal hemorrhoids s/p THD x 4 on 03/16 who presented to the ED on 03/29 with rectal bleeding, Hb 5.4, s/p PRBC x 3 (x 2 03/29, x 1 03/30), s/p Kcentra; Hb has
stabilized, but rectal bleeding has persisted
POD3 flex sig, EUA, suture ligation of bleeding hemorrhoid x2
9/3 s/p pRBC x1 (for Hb of 7.0, repeat Hb after was 8.0)
AFVSS
Hb 8.3 from 8.9
�Continue regular diet and fiber twice daily
�Voiding
�Pain control with Tylenol ATC, tramadol and Dilaudid as needed
�Hold all AC for another 24 hours; continue trending Hb and transfusing as needed
�Would like to see her next couple of BMs without blood prior to restarting AC
�Will make n.p.o. past midnight in case patient needs repeat surgery
�OOB/IS
�Appreciate hospitalist
Subjective Data
Subjective Data
Date of Service: April 05, 2025
Yesterday during the day, she had some spotting of blood on her pad, but did not have any BMs. She slept most of the day. When she was awake 10 PM and after, she did not have any additional bleeding, but still no BMs as of this morning.
Pain has significantly improved.
Objective Data
-
Vital Signs
Temp Pulse Resp BP Pulse Ox
98 F 77 11 109/90 96
04/05/25 07:00 04/05/25 06:00 04/05/25 06:00 04/05/25 06:00 04/05/25 08:00
Intake & Output
09/10/2404/05/25 04/06/25
06:59 06:59 06:59
Intake Total 480 / 480 880 / 880
Output Total 500 / 500
Balance 480 / 480 380 / 380
Intake:
Oral fluids 480 / 480
IV fluids (Total) 630 / 630
Blood Product Amount Infused ( 250 / 250
mL)
Packed Rbc Leukoreduced Unit 250 / 250
[id number]
Output:
Urine, Voided 500 / 500
Other:
Number of approximated SMALL 1
amounts of urine
Number of approximated MODERATE 2 1 1
amounts of urine
Lab Results
04/05/25 06:02
04/04/25 05:46
Physical Exam
-
General: No Acute Distress and AOx3
HEENT: Grossly Normal
Abdomen: Soft, Non Distended and Non Tender
Rectal: Other (Deferred)
Skin: Warm and Dry
--- NOTE | 2025-04-05 10:56 | W.PN.HOSP.TC ---
Today's Communication/Plan
-
no BM, but some sprinkled blood in bowl after flatulence
H&H in AM
stop IVF
Assessment / Plan
Assessment / Plan
79yo M with PMHX of insomnia, Afib on Eliquis, LAVINIA, DM, HLD, GERD, Transanal hemorrhoidal dearterialization x 4, bilateral pudendal nerve block on 03/16/25 had continuing bleeding since her procedure and came with low hgb 5.4. S/P 3 units PRBC on
admission and KCentra on 03/30/25
A/P:
#Acute blood loss anemia 2/2 lower GIB exacerbated by Eliquis and possibly due to recent internal hemorrhoids dearterialization
Non-painful, bright red blood per rectum (as per photo done by patient), no concern for UGIB or small bowel bleed.
Colorectal Sx: did flexible sigmoidoscopy after Eliquis washout on 04/02/25 (two superficial ulcers on internal hemorrhoids suture ligation of bleeding internal hemorrhoids x2)- monitor for bleeding, if absent - plan to restart Elqiuis and monitor for
24more hours.
Patient previously had discussion with GI about GIB, since it started back in Septembericle she was traveling to [place]. As per patient - COlorectalSx and GI communicated and bleeding deemed to be from hemorrhoidal source. Current episode
of prolonged postOP bleeding also discussed with COlorectalSx, who is positive that bleeding is from internal hemorrhoids and postOP stitching.
Serial Hgb,
transfuse to keep >7.
Eliquis on hold
S/P Kcentra
#Paroxysmal Afib
Hold Eliquis
Telemetry
HR control: hold cardizem due to low BP
#DM type 2 with unspecified complications
Accuchecks, Insulin SS, DM diet
hold oral hypoglycemics
#HLD
#GERD
#Urinary urgency
#Insomnia
cont home meds
#ANTHONY
cont CPAP at night
DVT ppx SCDs
Full code
I have spent at least 51min reviewing chart, test results, communication with consultants and providing direct patient care
Anticipated Discharge: > 48 hours
Subjective/Interval History
-
Date of Service: April 05, 2025
Objective Data
-
Labs:
Laboratory Results
04/05/25
06:02
Hgb 8.3 L
Hct 27.5 L
Vital Signs:
Vital Signs
Temp Pulse Resp BP Pulse Ox
98 F 77 11 109/90 96
04/05/25 07:00 04/05/25 06:00 04/05/25 06:00 04/05/25 06:00 04/05/25 08:00
I&O
04/04/25 04/05/25 04/06/25
06:59 06:59 06:59
Intake Total 480 / 480 880 / 880
Output Total 500 / 500
Balance 480 / 480 380 / 380
Review of Systems
-
History Source: Patient
All other systems: Reviewed and negative
Abdomen/GI: Reports Bloody Stools
Physical Exam
-
General: No Apparent Distress and Comfortable
Neuro: Awake, Alert, Oriented and AO x 3
Psych: Calm
[2025-04-05 11:10] LABS: Glucose - Point of Care 126 mg/dl (70-99)
[2025-04-05] MEDS: NSS IV (11:43)
--- NOTE | 2025-04-05 14:20 | PTCARENOTE ---
pt changed for incont urine. Blood continues to infuse. Awaiting ABG
--- NOTE | 2025-04-05 16:02 | CM ---
NPO in event needs OR in AM, Regular diet with fiber BID, blood spotting on bed pad and in toilet. Discharge POC: Anticipate home with no needs. Possible HH RN.
[2025-04-05] MEDS: NOVOLOG FLEXPEN-LOW RESISTANCE 1 UNITS SC (16:32)
[2025-04-05 16:34] LABS: Glucose - Point of Care 167 mg/dl (70-99)
[2025-04-05] MEDS: CRESTOR 40 MG PO (22:11)
[2025-04-05] MEDS: PROTONIX IV IV (22:11)
[2025-04-05] MEDS: NSS (PRESERVATIVE FREE) IV (22:11)
[2025-04-05] MEDS: ELAVIL 75 MG PO (22:11)
[2025-04-05 22:35] LABS: Glucose - Point of Care 243 mg/dl (70-99)
[2025-04-06] VITALS (14 sets, daily range): BP systolic 107–143; BP diastolic 57–76; PULSE 86
[2025-04-06] MEDS: TYLENOL PO (06:30)
[2025-04-06 07:03] LABS: Hematocrit 29.0 % (37.0-47.0); Hemoglobin 8.7 g/dL (12.0-16.0)
[2025-04-06 08:29] LABS: Glucose - Point of Care 140 mg/dl (70-99)
[2025-04-06] MEDS: NOVOLOG FLEXPEN-LOW RESISTANCE SC (08:40)
[2025-04-06] MEDS: MYRBETRIQ EXTENDED RELEASE 50 MG PO (08:41)
[2025-04-06] MEDS: HYDROCORTISONE 2.5% CREAM 1 APPLIC TOPICAL ×2 (08:41→19:14)
[2025-04-06] MEDS: METAMUCIL, KONSYL 1 PACKET PO ×2 (08:41→19:13)
[2025-04-06] MEDS: NSS (PRESERVATIVE FREE) 10 ML IV ×2 (08:42→19:19)
[2025-04-06] MEDS: PROTONIX IV 40 MG IV ×2 (08:42→19:19)
[2025-04-06] MEDS: VITAMIN D3 (cholecalciferol) 50 MCG PO (08:42)
--- NOTE | 2025-04-06 08:44 | W.PN.HOSP.TC ---
Today's Communication/Plan
-
Miralax
further mgmt as per colorectal Sx
cont to keep anticoagulation
H&H in AM
Assessment / Plan
Assessment / Plan
79yo M with PMHX of insomnia, Afib on Eliquis, LAVINIA, DM, HLD, GERD, Transanal hemorrhoidal dearterialization x 4, bilateral pudendal nerve block on 03/16/25 had continuing bleeding since her procedure and came with low hgb 5.4. S/P 3 units PRBC on
admission and KCentra on 03/30/25
A/P:
#Acute blood loss anemia 2/2 lower GIB exacerbated by Eliquis and possibly due to recent internal hemorrhoids dearterialization
Non-painful, bright red blood per rectum (as per photo done by patient), no concern for UGIB or small bowel bleed.
Colorectal Sx: did flexible sigmoidoscopy after Eliquis washout on 04/02/25 (two superficial ulcers on internal hemorrhoids suture ligation of bleeding internal hemorrhoids x2)- monitor for bleeding, if absent - plan to restart Elqiuis and monitor for
24more hours.
Patient previously had discussion with GI about GIB, since it started back in Septembericle she was traveling to [place]. As per patient - COlorectalSx and GI communicated and bleeding deemed to be from hemorrhoidal source. Current episode
of prolonged postOP bleeding also discussed with COlorectalSx, who is positive that bleeding is from internal hemorrhoids and postOP stitching.
Serial Hgb,
transfuse to keep >7.
Eliquis on hold
S/P Kcentra
#Paroxysmal Afib
Hold Eliquis
Telemetry
HR control: hold cardizem due to low BP
#DM type 2 with unspecified complications
Accuchecks, Insulin SS, DM diet
hold oral hypoglycemics
#Constipation
laxatives
#HLD
#GERD
#Urinary urgency
#Insomnia
cont home meds
#ANTHONY
cont CPAP at night
#Morbid obesity
BMI 44.0
advise to decrease calorie intake
DVT ppx SCDs
Full code
I have spent at least 36min reviewing chart, test results, communication with consultants and providing direct patient care
Anticipated Discharge: > 48 hours
Subjective/Interval History
-
Date of Service: April 06, 2025
Objective Data
-
Labs:
Laboratory Results
04/06/25
06:45
Hgb 8.7 L
Hct 29.0 L
Vital Signs:
Vital Signs
Temp Pulse Resp BP Pulse Ox
97.6 F 85 14 109/60 97
04/06/25 07:58 04/06/25 06:00 04/06/25 06:00 04/06/25 06:00 04/06/25 06:22
I&O
04/05/25 04/06/25 04/07/25
06:59 06:59 06:59
Intake Total 880 / 880 350 / 350
Output Total 500 / 500
Balance 380 / 380 350 / 350
Review of Systems
-
History Source: Patient
All other systems: Reviewed and negative
Abdomen/GI: Reports Constipated
Physical Exam
-
General: No Apparent Distress
HEENT: Normocephalic
GI: Soft, Nontender and Nondistended
Neuro: Awake, Alert, Oriented and AO x 3
Psych: Calm
--- NOTE | 2025-04-06 10:27 | W.PN.CRS1 ---
Today's Communication / Plan
-
As below
Assessment/Plan
-
79-year-old female with PMH of A-fib (on Eliquis), HLD, DM, GERD, ANTHONY and bleeding internal hemorrhoids s/p THD x 4 on 03/16 who presented to the ED on 03/29 with rectal bleeding, Hb 5.4, s/p PRBC x 3 (x 2 03/29, x 1 03/30), s/p Kcentra; Hb has
stabilized, but rectal bleeding has persisted
POD4 flex sig, EUA, suture ligation of bleeding hemorrhoid x2
9/ s/p pRBC x1 (for Hb of 7.0, repeat Hb after was 8.0)
AFVSS
Hb 8.7 from 8.3
�Continue regular diet and fiber twice daily
�Pain control with Tylenol ATC, tramadol and Dilaudid as needed
� Restart Eliquis today and repeat CBC in a.m.
�For constipation, continue MiraLAX daily, will add Colace twice daily
�OOB/IS
�Appreciate hospitalist
Dispo�if no significant bleeding and Hb stable, possible DC tomorrow versus Wednesday
Subjective Data
Subjective Data
Date of Service: April 06, 2025
No overnight events.
No BMs yesterday. She had some spotting of blood with wiping 3 times, but no dripping of blood, significantly improved from previous.
Pain is controlled. Tolerating regular diet without N/V
Patient is OOB
Objective Data
-
Vital Signs
Temp Pulse Resp BP Pulse Ox
97.6 F 80 15 143/69 97
04/06/25 07:58 04/06/25 08:00 04/06/25 08:00 04/06/25 08:00 04/06/25 06:22
Intake & Output
04/05/25 04/06/25 04/07/25
06:59 06:59 06:59
Intake Total 880 / 880 350 / 350
Output Total 500 / 500
Balance 380 / 380 350 / 350
Intake:
IV fluids (Total) 630 / 630 350 / 350
Blood Product Amount Infused ( 250 / 250
mL)
Packed Rbc Leukoreduced Unit 250 / 250
[id number]
Output:
Urine, Voided 500 / 500
Other:
Number of approximated SMALL 1
amounts of urine
Number of approximated MODERATE 1 1
amounts of urine
Number of approximated LARGE 1
amounts of urine
Lab Results
04/06/25 06:45
04/04/25 05:46
Physical Exam
-
General: No Acute Distress and AOx3
HEENT: Grossly Normal
Abdomen: Soft, Non Distended and Non Tender
Rectal: Other (Deferred)
Skin: Warm and Dry
[2025-04-06] MEDS: MIRALAX 17 GRAMS PO (11:15)
[2025-04-06] MEDS: TYLENOL 1000 MG PO ×3 (11:17→23:32)
[2025-04-06 12:31] LABS: Glucose - Point of Care 164 mg/dl (70-99)
[2025-04-06] MEDS: NOVOLOG FLEXPEN-LOW RESISTANCE 1 UNITS SC ×2 (12:40→17:40)
[2025-04-06] MEDS: ROXICODONE 5 MG PO (13:51)
--- NOTE | 2025-04-06 15:35 | CM ---
Monitoring for bleeding. Plan to restart Eliquis if no bleeding, then observe for additional 24 hours. Discharge POC: Anticipate home with no needs.
--- NOTE | 2025-04-06 16:09 | PTCARENOTE ---
Assumed care of patient at beginning of this shift from previous RN. Patient Ox3, ambulated to bathroom x1 assist with use of RW without difficulty. No bm as of yet; administered ordered miralax. Patient reports continued light red blood smears on
toilet tissue when wiping. See worklist for full assessment and vital signs.
[2025-04-06 17:50] LABS: Glucose - Point of Care 198 mg/dl (70-99)
[2025-04-06] MEDS: COLACE 100 MG PO (19:13)
[2025-04-06] MEDS: ELIQUIS 5 MG PO (19:13)
[2025-04-06] MEDS: FLUSH (NSS) 2 FLUSH IV (19:21)
[2025-04-06 20:59] LABS: Glucose - Point of Care 213 mg/dl (70-99)
[2025-04-06] MEDS: ELAVIL 75 MG PO (21:17)
[2025-04-06] MEDS: CRESTOR 40 MG PO (21:18)
[2025-04-07] VITALS (12 sets, daily range): BP systolic 95–130; BP diastolic 54–79; PULSE 83–89
[2025-04-07 03:40] LABS: Hematocrit 26.4 % (37.0-47.0); Hemoglobin 8.1 g/dL (12.0-16.0)
--- NOTE | 2025-04-07 05:36 | PTCARENOTE ---
Pt had 2 formed brown bm's at beginning of shift. One small and one moderate amount. No bleeding noted. Received Eliquis at beginning of shift. Sleeping most of night with CPAP on. Only c/o pain was rectally after having BM's. Hydrocortisone cream
applied with good relief. Call youngblood remains within reach. Will continue to monitor.
[2025-04-07] MEDS: TYLENOL PO (06:05)
--- NOTE | 2025-04-07 07:42 | W.PN.HOSP.TC ---
Today's Communication/Plan
-
Monitor without any anticoagulation for now
Monitor for bleeding
Assessment / Plan
Assessment / Plan
Physical Exam
General: No Apparent Distress
HEENT: Normocephalic
GI: Soft, Nontender and Nondistended
Neuro: Awake, Alert, Oriented and AO x 3
Psych: Calm
Assessment/Plan
79yo M with PMHX of insomnia, Afib on Eliquis, LAVINIA, DM, HLD, GERD, Transanal hemorrhoidal dearterialization x 4, bilateral pudendal nerve block on 03/16/25 had continuing bleeding since her procedure and came with low hgb 5.4. S/P 3 units PRBC on
admission and KCentra on 03/30/25
#Acute blood loss anemia 2/2 lower GIB exacerbated by Eliquis and possibly due to recent internal hemorrhoids dearterialization
Non-painful, bright red blood per rectum, no concern for UGIB or small bowel bleed.
Colorectal Sx: did flexible sigmoidoscopy after Eliquis washout on 04/02/25 (two superficial ulcers on internal hemorrhoids suture ligation of bleeding internal hemorrhoids x2)- Eliquis resumed on 04/06/25 -- bleeding took place again -- Eliquis held
again
-I discussed on 04/07/25 patient's case with her gas meter repairer Dr. Valadez (not cardiology consult as it is not needed at this time) and also surgeon, and in the end, we all agreed to hold off on further anticoagulation for another 24 hours, after
which a trial of Heparin Drip (without initial loading bolus) could be done, or maybe even Eliquis can be resumed
Patient previously had discussion with GI Dr. Hernandez about GIB, since it started back in [place] she was traveling to [place]. As per patient - COlorectalSx and GI communicated and bleeding deemed to be from hemorrhoidal source. Current episode
of prolonged postOP bleeding also discussed with COlorectalSx, who is positive that bleeding is from internal hemorrhoids and postOP stitching.
Serial Hgb,
transfuse to keep >7.
Eliquis on hold
S/P Kcentra
#Paroxysmal Afib
Eliquis was resumed on 04/06/25, but held again on 04/07/25, given recurrence of bleeding
Telemetry
HR control: hold cardizem due to low BP
#DM type 2 with unspecified complications
Accuchecks, Insulin SS, DM diet
hold oral hypoglycemics
#Constipation
laxatives
#HLD
#GERD
#Urinary urgency
#Insomnia
cont home meds
#ANTHONY
cont CPAP at night
#Morbid obesity
BMI 44.0
advise to decrease calorie intake
DVT ppx SCDs
Full code
Anticipated Discharge: 24 - 48 hours
Subjective/Interval History
-
Date of Service: April 07, 2025
Patient was seen and examined. She denied any complaints, except she did have some blood rectally earlier.
Objective Data
-
Labs:
Laboratory Results
04/07/25
03:29
Hgb 8.1 L
Hct 26.4 L
Vital Signs:
Vital Signs
Temp Pulse Resp BP Pulse Ox
97.5 F 73 13 126/79 100
04/07/25 02:58 04/07/25 06:00 04/07/25 06:00 04/07/25 06:00 04/07/25 06:00
I&O
04/06/25 04/07/25 04/08/25
06:59 06:59 06:59
Intake Total 350 / 350 340 / 340
Balance 350 / 350 340 / 340
[2025-04-07 08:51] LABS: Glucose - Point of Care 163 mg/dl (70-99)
[2025-04-07] MEDS: NOVOLOG FLEXPEN-LOW RESISTANCE 1 UNITS SC ×2 (08:56→14:40)
[2025-04-07] MEDS: NSS (PRESERVATIVE FREE) 10 ML IV (08:56)
[2025-04-07] MEDS: PROTONIX IV 40 MG IV (08:56)
[2025-04-07] MEDS: COLACE 100 MG PO ×2 (08:57→20:26)
[2025-04-07] MEDS: MIRALAX 17 GRAMS PO (08:57)
[2025-04-07] MEDS: MYRBETRIQ EXTENDED RELEASE 50 MG PO (08:57)
[2025-04-07] MEDS: METAMUCIL, KONSYL 1 PACKET PO ×2 (08:57→20:26)
[2025-04-07] MEDS: ELIQUIS 5 MG PO (08:57)
[2025-04-07] MEDS: VITAMIN D3 (cholecalciferol) 50 MCG PO (08:57)
[2025-04-07] MEDS: HYDROCORTISONE 2.5% CREAM 1 APPLIC TOPICAL ×2 (08:57→20:26)
--- NOTE | 2025-04-07 11:39 | W.PN.GS2 ---
Today's Communication / Plan
-
Hold Eliquis
Assessment / Plan
-
79 yo female on Eliquis presenting for rectal bleeding and anemia after undergoing a 4 column THD on 03/16/2025. s/p KCentra on 03/30
POD 5 flex sig, EUA, suture ligation of bleeding hemorrhoid x2
s/p 4 units of pRBC's, last transfusion was on 04/04
AFVSS
H/H drifting down, Eliquis resumed 04/06
Passing some bright red blood with stool today
Plan:
Continue current diet
Continue bowel regimen
Hold Eliquis given recurrent bleeding
Follow labs
Consider cardiology consult to address need for continued AC
Subjective Data
-
Date of Service: April 07, 2025
Pt seen and examined at bedside with Dr Philip. Fong n/v. OJOSSE to chair. Tolerating diet. Blood streaking with small stool today. Some rectal pain with stool pasage.
Objective Data
-
Intake and Output
04/06/25 04/07/25 04/08/25
06:59 06:59 06:59
Intake Total 350 / 350 340 / 340
Balance 350 / 350 340 / 340
Intake:
Oral fluids 340 / 340
IV fluids (Total) 350 / 350
Other:
Number of approximated MODERATE 1 2
amounts of urine
Number of approximated LARGE 1
amounts of urine
Vital Signs
Temp Pulse Resp BP Pulse Ox
98.5 F 73 13 126/79 100
04/07/25 07:40 04/07/25 06:00 04/07/25 06:00 04/07/25 06:00 04/07/25 06:00
Lab Results
04/07/25 03:29
04/04/25 05:46
Calcium 8.4 mg/dl (8.4-10.2) 04/04/25 05:46
Phosphorus 4.2 mg/dl (2.5-4.5) 03/31/25 16:41
Magnesium 2.1 mg/dl (1.6-2.3) 03/31/25 16:41
Total Bilirubin 0.4 mg/dl (0.2-1.3) 04/02/25 04:26
AST 15 U/L (14-36) 04/02/25 04:26
ALT < 10 U/L (0-35) 04/02/25 04:26
Alkaline Phosphatase 50 U/L (38-126) 04/02/25 04:26
Total Protein 5.1 g/dl (6.3-8.2) L 04/02/25 04:26
Albumin 3.1 g/dl (3.5-5.0) L 04/02/25 04:26
Physical Exam
-
NAD
ABD soft, nt, nd
[2025-04-07] MEDS: TYLENOL 1000 MG PO ×3 (12:00→23:05)
[2025-04-07] MEDS: ROXICODONE 5 MG PO (12:02)
[2025-04-07 13:33] LABS: Glucose - Point of Care 196 mg/dl (70-99)
[2025-04-07] MEDS: NOVOLOG FLEXPEN-LOW RESISTANCE SC (17:44)
[2025-04-07 17:59] LABS: Glucose - Point of Care 123 mg/dl (70-99)
[2025-04-07] MEDS: NSS (PRESERVATIVE FREE) IV (20:27)
[2025-04-07 21:06] LABS: Glucose - Point of Care 228 mg/dl (70-99)
[2025-04-07] MEDS: ELAVIL 75 MG PO (23:04)
[2025-04-07] MEDS: CRESTOR 40 MG PO (23:04)
[2025-04-08] VITALS (10 sets, daily range): BP systolic 114–162; BP diastolic 54–99; PULSE 84
[2025-04-08 04:37] LABS: Hematocrit 26.2 % (37.0-47.0); Hemoglobin 7.7 g/dL (12.0-16.0); Mean Corp Hgb Conc. 29.4 g/dL (33.0-37.0); Mean Corpuscular Volume 84.8 fL (81.0-99.0); Platelet Count 180 10^3/uL (130-400); Red Cell Dist. Width 17.8 % (11.5-14.5)
[2025-04-08 05:01] LABS: Blood Urea Nitrogen 17 mg/dl (7-17); Calcium 8.6 mg/dl (8.4-10.2); Carbon Dioxide 30 mmol/L (22-30); Chloride 105 mmol/L (98-107); Estimated Creatinine Clearance 79 ml/min; Glucose 204 mg/dl (70-99); Magnesium 2.0 mg/dl (1.6-2.3); Potassium 4.3 mmol/L (3.5-5.1); Sodium 136 mmol/L (135-145); eGFR > 60.00
--- NOTE | 2025-04-08 05:09 | PTCARENOTE ---
Pt using bathroom this am to void and have formed small bm with moderate amount of red blood in toilet, more then beginning of shift. Rectal area ecchymotic purple this am, painful. Hydrocortisone cream applied. Will continue to monitor.
[2025-04-08] MEDS: TYLENOL 1000 MG PO ×4 (05:44→23:06)
[2025-04-08 09:18] LABS: Glucose - Point of Care 151 mg/dl (70-99)
[2025-04-08] MEDS: NOVOLOG FLEXPEN-LOW RESISTANCE SC (10:55)
[2025-04-08] MEDS: NSS (PRESERVATIVE FREE) IV ×2 (10:55→21:19)
[2025-04-08 10:58] LABS: Glucose - Point of Care 136 mg/dl (70-99)
[2025-04-08] MEDS: PROTONIX 40 MG PO (11:23)
[2025-04-08] MEDS: MYRBETRIQ EXTENDED RELEASE 50 MG PO (11:23)
[2025-04-08] MEDS: COLACE 100 MG PO ×2 (11:23→21:16)
[2025-04-08] MEDS: VITAMIN D3 (cholecalciferol) 50 MCG PO (11:24)
[2025-04-08] MEDS: METAMUCIL, KONSYL 1 PACKET PO ×2 (11:24→21:17)
[2025-04-08] MEDS: HYDROCORTISONE 2.5% CREAM 1 APPLIC TOPICAL ×2 (11:24→21:17)
[2025-04-08] MEDS: MIRALAX 17 GRAMS PO (11:24)
--- NOTE | 2025-04-08 11:24 | W.PN.GS2 ---
Today's Communication / Plan
-
NPO after MN for EUA
Assessment / Plan
-
79 yo female on Eliquis presenting for rectal bleeding and anemia after undergoing a 4 column THD on 03/16/2025. s/p KCentra on 03/30
POD 6 flex sig, EUA, suture ligation of bleeding hemorrhoid x2
s/p 4 units of pRBC's, last transfusion was on 04/04
AFVSS
H/H drifting down, Eliquis resumed 04/06 and held again on 04/07
Recurrent rectal bleeding
Plan:
Continue current diet
NPO after MN for EUA
Continue bowel regimen
Hold all therapeutic AC given recurrent bleeding
Follow labs
Subjective Data
-
Date of Service: April 08, 2025
Pt seen and examined at bedside with Dr. Guevara. Still passing blood with each BM. Rectal discomfort. OOB to chair.
Objective Data
-
Intake and Output
04/07/25 04/08/25 04/09/25
06:59 06:59 06:59
Intake Total 340 / 340 400 / 400
Balance 340 / 340 400 / 400
Intake:
Oral fluids 340 / 340 400 / 400
Other:
Number of approximated MODERATE 2 3
amounts of urine
Vital Signs
Temp Pulse Resp BP Pulse Ox
97.7 F 81 14 114/70 94
04/08/25 07:08 04/08/25 06:00 04/08/25 06:00 04/08/25 06:00 04/08/25 06:00
Lab Results
04/08/25 04:00
04/08/25 04:00
Calcium 8.6 mg/dl (8.4-10.2) 04/08/25 04:00
Phosphorus 4.2 mg/dl (2.5-4.5) 03/31/25 16:41
Magnesium 2.0 mg/dl (1.6-2.3) 04/08/25 04:00
Total Bilirubin 0.4 mg/dl (0.2-1.3) 04/02/25 04:26
AST 15 U/L (14-36) 04/02/25 04:26
ALT < 10 U/L (0-35) 04/02/25 04:26
Alkaline Phosphatase 50 U/L (38-126) 04/02/25 04:26
Total Protein 5.1 g/dl (6.3-8.2) L 04/02/25 04:26
Albumin 3.1 g/dl (3.5-5.0) L 04/02/25 04:26
Physical Exam
-
NAD
Tele: NSR
ABD soft, nt, nd
[2025-04-08] MEDS: ROXICODONE 5 MG PO (11:52)
[2025-04-08 13:44] LABS: Glucose - Point of Care 271 mg/dl (70-99)
[2025-04-08] MEDS: NOVOLOG FLEXPEN-LOW RESISTANCE 3 UNITS SC (14:00)
--- NOTE | 2025-04-08 15:30 | W.PN.HOSP.TC ---
Today's Communication/Plan
-
Bleeding again this morning. Hgb dropped to 7.7. Continue to hold all blood thinners.
NPO after midnight for EUA surgery tomorrow
Assessment / Plan
Assessment / Plan
Physical Exam
General: No Apparent Distress
HEENT: Normocephalic
GI: Soft, Nontender and Nondistended
Neuro: Awake, Alert, Oriented and AO x 3
Psych: Calm
Assessment/Plan
79yo M with PMHX of insomnia, Afib on Eliquis, LAVINIA, DM, HLD, GERD, Transanal hemorrhoidal dearterialization x 4, bilateral pudendal nerve block on 03/16/25 had continuing bleeding since her procedure and came with low hgb 5.4. S/P 3 units PRBC on
admission and KCentra on 03/30/25
#Acute blood loss anemia 2/2 lower GIB exacerbated by Eliquis and possibly due to recent internal hemorrhoids dearterialization
Non-painful, bright red blood per rectum, no concern for UGIB or small bowel bleed.
Colorectal Sx: did flexible sigmoidoscopy after Eliquis washout on 04/02/25 (two superficial ulcers on internal hemorrhoids suture ligation of bleeding internal hemorrhoids x2)- Eliquis resumed on 04/06/25 -- bleeding took place again -- Eliquis held
again
-I discussed on 04/07/25 patient's case with her kitchen hand Dr. Valadez (not cardiology consult as it is not needed at this time) and also surgeon, and in the end, we all agreed to hold off on further anticoagulation
-Bleeding again on 04/08/25 morning: NPO after midnight for EUA tomorrow 04/09/25
Patient previously had discussion with GI Dr. Hernandez about GIB, since it started back in [place] she was traveling to [place]. As per patient - COlorectalSx and GI communicated and bleeding deemed to be from hemorrhoidal source. Current episode
of prolonged postOP bleeding also discussed with COlorectalSx, who is positive that bleeding is from internal hemorrhoids and postOP stitching.
Serial Hgb,
transfuse to keep >7.
Eliquis on hold
S/P Kcentra
#Paroxysmal Afib
Eliquis was resumed on 04/06/25, but held again on 04/07/25, given recurrence of bleeding
Telemetry
HR control: hold cardizem due to low BP
#DM type 2 with unspecified complications
Accuchecks, Insulin SS, DM diet
hold oral hypoglycemics
#Constipation
laxatives
#HLD
#GERD
#Urinary urgency
#Insomnia
cont home meds
#ANTHONY
cont CPAP at night
#Morbid obesity
BMI 44.0
advise to decrease calorie intake
DVT Prophylaxis: SCDs
Code Status: Full code
Anticipated Discharge: 24 - 48 hours
Subjective/Interval History
-
Date of Service: April 08, 2025
Patient was seen and examined. She reported having a bloody bowel movement this morning.
Objective Data
-
Labs:
Laboratory Results
04/08/25
04:00
WBC 5.9
Hgb 7.7 L
Hct 26.2 L
Plt Count 180
Sodium 136
Potassium 4.3
Chloride 105
Carbon Dioxide 30
BUN 17
Creatinine 0.6
Glucose 204 H
Calcium 8.6
Vital Signs:
Vital Signs
Temp Pulse Resp BP Pulse Ox
99.7 F 82 18 119/67 97
04/08/25 11:06 04/08/25 14:00 04/08/25 14:00 04/08/25 08:00 04/08/25 14:22
I&O
04/07/25 04/08/25 04/09/25
06:59 06:59 06:59
Intake Total 340 / 340 400 / 400
Balance 340 / 340 400 / 400
[2025-04-08 17:45] LABS: Glucose - Point of Care 202 mg/dl (70-99)
[2025-04-08] MEDS: NOVOLOG FLEXPEN-LOW RESISTANCE 2 UNITS SC (17:53)
[2025-04-08] MEDS: CRESTOR 40 MG PO (21:17)
[2025-04-08] MEDS: ELAVIL 75 MG PO (21:19)
[2025-04-08 21:38] LABS: Glucose - Point of Care 194 mg/dl (70-99)
[2025-04-09] VITALS (9 sets, daily range): BP systolic 113–145; BP diastolic 55–81; PULSE 82
[2025-04-09] MEDS: ROXICODONE 5 MG PO ×3 (02:20→23:17)
--- NOTE | 2025-04-09 03:46 | PTCARENOTE ---
Pt having 2 small soft bm's over night. Rectal bleeding was noted with both bm's. Pt having discomfort in rectal area. Medication given see MAR. Pt NPO at midnight per order Pt may have clears up to 4 hours before procedure.
[2025-04-09 05:46] LABS: Glucose - Point of Care 150 mg/dl (70-99)
[2025-04-09] MEDS: TYLENOL PO ×2 (05:49→06:00)
[2025-04-09 06:30] LABS: Hematocrit 26.6 % (37.0-47.0); Hemoglobin 8.1 g/dL (12.0-16.0); Mean Corp Hgb Conc. 30.5 g/dL (33.0-37.0); Mean Corpuscular Volume 86.1 fL (81.0-99.0); Platelet Count 184 10^3/uL (130-400); Red Cell Dist. Width 18.0 % (11.5-14.5)
[2025-04-09 06:54] LABS: Blood Urea Nitrogen 18 mg/dl (7-17); Calcium 8.8 mg/dl (8.4-10.2); Carbon Dioxide 32 mmol/L (22-30); Chloride 103 mmol/L (98-107); Estimated Creatinine Clearance 79 ml/min; Glucose 146 mg/dl (70-99); Potassium 4.5 mmol/L (3.5-5.1); Sodium 137 mmol/L (135-145); eGFR > 60.00
[2025-04-09] MEDS: NOVOLOG FLEXPEN-LOW RESISTANCE SC (07:38)
[2025-04-09] MEDS: MIRALAX PO (07:39)
[2025-04-09] MEDS: VITAMIN D3 (cholecalciferol) PO (07:39)
[2025-04-09] MEDS: PROTONIX PO (07:39)
[2025-04-09] MEDS: NSS (PRESERVATIVE FREE) IV ×2 (07:39→20:51)
[2025-04-09] MEDS: MYRBETRIQ EXTENDED RELEASE PO (07:39)
[2025-04-09] MEDS: METAMUCIL, KONSYL PO (07:40)
[2025-04-09] MEDS: COLACE PO (07:40)
[2025-04-09] MEDS: HYDROCORTISONE 2.5% CREAM TOPICAL (07:49)
--- NOTE | 2025-04-09 10:08 | CON.CAR ---
Addendum entered and electronically signed by Daniel Keene MD 04/09/25 17:35:
I saw and examined the patient.
DR Cervantes''s note was reviewed and I agree with the note.
I provided the substantive portion of the medical decision making and it accurately reflects our care.
I personally performed the medical decision making of the this encounter and my assessment and plan is below:
Holding Eliquis until follow up; likely to be considered for Watchman device given recurrent bleeding.
Original Note:
Consultation
Consultation Request
Date/Time Consultation Requested: 04/09/2025, 10:46
Date/Time Consultation Performed: 04/09/2025, 11:00
Requesting Provider: Luz Jacobs
Performing Provider: Dr. Keene, Dr. Cervantes
Reason for Consultation: Anticoagulation management for A-fib
Medical History
-
Chief Complaint: Chronic anemia, rectal bleeding
History of Present Illness:
79-year-old female with A-fib on Eliquis, hypertension, hyperlipidemia, diabetes type 2, GERD, chronic anemia, obstructive sleep apnea on CPAP presented to the ER reporting bleeding per rectum. She underwent a THD by Dr. Cortez on 03/16/2025.
Postoperatively she had significant pain and intermittent bleeding. Patient also reports having short of breath and fatigue and her outpatient hemoglobin was 6 g/dL and she was referred to the ED. her hemoglobin in ER was 5.4, HCT�18.2, rest of the
labs unremarkable. Initial vital signs�afebrile, HR�95, RR�16, BP�116/54, pulse ox 96% on room air. Patient received Kcentra on 03/30/2025. Patient underwent colorectal procedure�flexible sigmoidoscopy after Eliquis washout on 04/02/2025. Eliquis
was resumed back on 04/06/2025 but was held again because of her bleeding issues and scheduled procedures. Due to her hypotension, diltiazem was held. Cardiology was consulted for her A-fib/anticoagulant management. Patient reports being fatigued.
No chest pain, shortness of breath, lightheadedness, palpitations.
Patient was seen by Dr. Valadez as outpatient on 03/02/2025 and was scheduled for an outpatient stress test.
Past Medical History
Past Medical History: Arrhythmias, HTN, Hypercholesterolemia, NIDDM and Other (ANTHONY on CPAP, chronic anemia)
Past Surgical History: Other (Cholecystectomy, tubal ligation, left hip fracture repair, D&C, right knee replacement, left arm repair for pinched nerve)
Social History
Tobacco: Non-Smoker
Alcohol: Occasional
Family History
Family History: Reviewed & Not Pertinent
Allergies / Home Medications
Allergy/AdvReac Type Severity Reaction Status Date / Time
No Known Allergies Allergy Verified 03/29/25 15:01
�Medication �Instructions �Recorded �Confirmed �Type
cholecalciferol (vitamin D3) 50 2,000 unit PO DAILY Supplement 01/14/15 03/29/25 History
mcg (2,000 unit) capsule (Vitamin
D3)
pantoprazole 40 mg tablet,delayed 40 mg PO DAILY Gastrointestinal 04/16/20 03/29/25 History
release issue
apixaban 5 mg tablet (Eliquis) 5 mg PO BID ##0 08/01/20 03/29/25 Rx
diltiazem HCl 120 mg 120 mg PO DAILY AFib 11/09/22 03/29/25 History
capsule,extended release 24 hr,
controlled
estradiol 0.01% (0.1 mg/gram) 1 g vaginal PRN PRN dryness 11/09/22 03/29/25 History
vaginal cream (Estrace)
glipizide 2.5 mg tablet 2.5 mg PO DAILY Diabetes 02/08/25 03/29/25 History
amitriptyline 75 mg tablet 75 mg PO HS Sleep 03/14/25 03/29/25 History
ferrous sulfate 134 mg (27 mg 134 mg PO DAILY Supplement 03/14/25 03/29/25 History
iron) tablet
mirabegron 50 mg tablet,extended 50 mg PO DAILY Urinary Issue 03/14/25 03/29/25 History
release 24 hr (Myrbetriq)
rosuvastatin 40 mg tablet 40 mg PO HS High Cholesterol 03/14/25 03/29/25 History
Review of Systems
-
All other systems: Negative unless noted
Physical Exam
Vital Signs
Temp Pulse Resp BP Pulse Ox
97.9 F 89 20 133/81 97
04/09/25 07:34 04/09/25 08:00 04/09/25 08:00 04/09/25 08:00 04/09/25 09:10
Lab Results
04/09/25 05:59
04/09/25 05:59
Physical Exam
General: Well Developed, Well Nourished and No Apparent Distress
Respiratory: Clear
Cardiac: S1/S2, Regular Rhythm and Peripheral Edema (1+); Negative JVD
GI: Soft, Non Tender and Normal Bowel Sounds
Skin: Warm and Dry
Neuro: Awake, Alert, Oriented and AO x 3
Impression / Plan
-
Impression
79yo M with Afib on Eliquis, DM, hypertension, hyperlipidemia, obstructive sleep apnea on CPAP, GERD, Transanal hemorrhoidal dearterialization x 4, bilateral pudendal nerve block on 03/16/25 had continuing bleeding since her procedure and came with
low hgb 5.4. S/P 4 units PRBC this admission and KCentra on 03/30/25. Patient underwent flexible sigmoidoscopy, exam under anesthesia and suture ligation of internal hemorrhoids on 04/02/2025.
#Acute on chronic anemia
Likely due to acute blood loss from the recent GI procedures.
Patient is status post Kcentra at admission
Eliquis restarted after the procedure but was held because of her bleeding issues.
S/p 4 PRBC transfusion this admission.
Hemoglobin at 8.1 today
Continue to hold Eliquis.
Transfuse if hemoglobin <7
#Paroxysmal A-fib
Telemetry reviewed
Patient in normal sinus rhythm
EKG with NSR
Due to her recurrent bleeding episodes, patient cannot be resumed back on Eliquis.
Will continue to hold Eliquis
Continue with diltiazem, if blood pressures tolerate.
#ANTHONY
Continue CPAP
#Hypertension
Blood pressures look good
Resume diltiazem if she tolerates
#Hyperlipidemia
Continue Crestor
#DM type II, constipation, GERD, insomnia
Continue to manage per primary team
[2025-04-09] MEDS: METAMUCIL, KONSYL 1 PACKET PO ×2 (11:40→20:52)
[2025-04-09] MEDS: COLACE 100 MG PO ×2 (11:40→20:52)
[2025-04-09] MEDS: MYRBETRIQ EXTENDED RELEASE 50 MG PO (11:40)
[2025-04-09] MEDS: MIRALAX 17 GRAMS PO (11:40)
[2025-04-09] MEDS: VITAMIN D3 (cholecalciferol) 50 MCG PO (11:40)
[2025-04-09] MEDS: PROTONIX 40 MG PO (11:40)
[2025-04-09] MEDS: HYDROCORTISONE 2.5% CREAM 1 APPLIC TOPICAL ×2 (11:41→20:52)
[2025-04-09] MEDS: TYLENOL 1000 MG PO ×3 (11:57→23:07)
--- NOTE | 2025-04-09 12:06 | W.PN.CRS1 ---
Today's Communication / Plan
-
regular diet
cards consult
hold eliquis
Assessment/Plan
-
79 yo female on Eliquis presenting for rectal bleeding and anemia after undergoing a 4 column THD on 03/16/2025. s/p KCentra on 03/30
POD 7 flex sig, EUA, suture ligation of bleeding hemorrhoid x2
s/p 4 units of pRBC's, last transfusion was on 04/04
AFVSS
Plan:
-Place back on a regular diet
-Continue bowel regimen
-Hold all therapeutic AC given recurrent bleeding. Anticipate at least a week.
-Will consult cardiology for their input on Eliquis.
-Follow labs
Subjective Data
Subjective Data
Date of Service: April 09, 2025
Patient states she still has some rectal pain. She has some blood off an on. She is hungry.
Objective Data
-
Vital Signs
Temp Pulse Resp BP Pulse Ox
97.9 F 89 20 133/81 97
04/09/25 07:34 04/09/25 08:00 04/09/25 08:00 04/09/25 08:00 04/09/25 09:10
Intake & Output
04/08/25 04/09/25 04/10/25
06:59 06:59 06:59
Intake Total 400 / 400 480 / 480
Balance 400 / 400 480 / 480
Intake:
Oral fluids 400 / 400 480 / 480
Other:
Number of approximated MODERATE 3 1 1
amounts of urine
Lab Results
04/09/25 05:59
04/09/25 05:59
Physical Exam
-
General: No Acute Distress and AOx3
Abdomen: Soft, Non Distended and Non Tender
Skin: Warm and Dry
--- NOTE | 2025-04-09 12:19 | W.PN.HOSP.TC ---
Today's Communication/Plan
-
Spoke with colorectal surgery and patient, colorectal surgery said monitor bleeding for another 24 hours, and patient said she absolutely cannot be discharged today
Therefore, anticipated discharge tomorrow
Continue to hold Eliquis
Transfer to telemetry
Assessment / Plan
Assessment / Plan
Physical Exam
General: No Apparent Distress
HEENT: Normocephalic
GI: Soft, Nontender and Nondistended. Positive bowel sounds.
Neuro: Awake, Alert, Oriented and AO x 3
Psych: Calm
Assessment/Plan
79 y/o male with PMHX of insomnia, Afib on Eliquis, LAVINIA, DM, HLD, GERD, Transanal hemorrhoidal dearterialization x 4, bilateral pudendal nerve block on 03/16/25 had continuing bleeding since her procedure and came with low hgb 5.4 status post 3 units
PRBC on admission and KCentra on 03/30/25
#Acute blood loss anemia 2/2 lower GIB exacerbated by Eliquis and possibly due to recent internal hemorrhoids dearterialization
Non-painful, bright red blood per rectum, no concern for UGIB or small bowel bleed.
Colorectal Sx: did flexible sigmoidoscopy after Eliquis washout on 04/02/25 (two superficial ulcers on internal hemorrhoids suture ligation of bleeding internal hemorrhoids x2)- Eliquis resumed on 04/06/25 -- bleeding took place again -- Eliquis held
again
-I discussed on 04/07/25 patient's case with her library clerk Dr. Valadez (not cardiology consult as it is not needed at this time) and also surgeon, and in the end, we all agreed to hold off on further anticoagulation
-Bleeding again on 04/08/25 morning and also overnight 04/08/25 to 04/09/25: NPO after midnight for EUA tomorrow 04/09/25
-Colorectal surgery consulted cardiology for further guidance: continue holding Eliquis, consider outpatient Watchman Device
Patient previously had discussion with GI Dr. Hernandez [facility], [facility] [place] As per patient - COlorectalSx and GI communicated and bleeding deemed to be from hemorrhoidal source. Current episode
of prolonged postOP bleeding also discussed with COlorectalSx, who is positive that bleeding is from internal hemorrhoids and postOP stitching.
-At this point, based on patient's description of the amount of bleeding and the Hgb remaining stable, I would recommend against repeat surgery as she is still healing from her initial THD; if she requires redo surgery, ideally would wait another 2
to 3 weeks (per colorectal surgery)
-Continue Diabetic Diet and Fiber twice daily
Serial Hgb,
transfuse to keep >7.
Eliquis on hold
S/P Kcentra
#Paroxysmal Afib
Eliquis was resumed on 04/06/25, but held again on 04/07/25, given recurrence of bleeding
Telemetry
HR control: hold cardizem due to low BP
#DM type 2 with unspecified complications
Accuchecks, Insulin SS, DM diet
hold oral hypoglycemics
#Constipation
-Continue MiraLAX daily and Colace twice daily
#HLD
#GERD
#Urinary urgency
#Insomnia
cont home meds
#ANTHONY
cont CPAP at night
#Morbid obesity
BMI 44.0
advise to decrease calorie intake
DVT Prophylaxis: SCDs
Code Status: Full code
Anticipated Discharge: Within 24 hours
Subjective/Interval History
-
Date of Service: April 09, 2025
Patient was seen and examined. She reported rectal bleeding overnight.
Objective Data
-
Labs:
Laboratory Results
04/09/25
05:59
WBC 5.6
Hgb 8.1 L
Hct 26.6 L
Plt Count 184
Sodium 137
Potassium 4.5
Chloride 103
Carbon Dioxide 32 H
BUN 18 H
Creatinine 0.6
Glucose 146 H
Calcium 8.8
Vital Signs:
Vital Signs
Temp Pulse Resp BP Pulse Ox
97.9 F 89 20 133/81 97
04/09/25 07:34 04/09/25 08:00 04/09/25 08:00 04/09/25 08:00 04/09/25 09:10
I&O
04/08/25 04/09/25 04/10/25
06:59 06:59 06:59
Intake Total 400 / 400 480 / 480
Balance 400 / 400 480 / 480
[2025-04-09 12:32] LABS: Glucose - Point of Care 256 mg/dl (70-99)
[2025-04-09] MEDS: NOVOLOG FLEXPEN-LOW RESISTANCE 3 UNITS SC (15:12)
--- NOTE | 2025-04-09 15:21 | PTCARENOTE ---
pt downgraded to tel. ambulated to br with assist of one. pt had small formed brown bm. no blood noted in toilet. small drop of blood on inna wipe.
--- NOTE | 2025-04-09 15:53 | CM ---
CM continues to follow for discharge. Pt has been taken off Eliquis due to bleeding issues and Per Dr. Keene, pt will not be able to resume Eliquis in the future.
Pt remains (I) with RW, ambulatory in the room and to the bathroom.
Plan: Pt to return home at discharge with no anticipated needs.
--- NOTE | 2025-04-09 17:56 | PTCARENOTE ---
pt being transferred to [facility] room 403. report given to Sana.
[2025-04-09] MEDS: NOVOLOG FLEXPEN-LOW RESISTANCE 1 UNITS SC (18:16)
[2025-04-09 18:25] LABS: Glucose - Point of Care 183 mg/dl (70-99)
--- NOTE | 2025-04-09 19:47 | PTCARENOTE ---
Patient received from IMU and oriented to 4 east. VSS upon transfer. Call [facility] within reach, med in lowest position. Plan of care ongoing.
[2025-04-09] MEDS: ELAVIL 75 MG PO (20:52)
[2025-04-09] MEDS: CRESTOR 40 MG PO (20:52)
[2025-04-09 21:54] LABS: Glucose - Point of Care 178 mg/dl (70-99)
[2025-04-10 03:24] VITALS: BP 105/60
[2025-04-10 07:00] VITALS: BP 139/83
[2025-04-10 07:04] LABS: Glucose - Point of Care 149 mg/dl (70-99)
[2025-04-10] MEDS: TYLENOL PO ×2 (07:11→17:53)
[2025-04-10 08:15] LABS: Hematocrit 26.5 % (37.0-47.0); Hemoglobin 8.1 g/dL (12.0-16.0); Mean Corp Hgb Conc. 30.6 g/dL (33.0-37.0); Mean Corpuscular Volume 85.5 fL (81.0-99.0); Platelet Count 194 10^3/uL (130-400); Red Cell Dist. Width 18.0 % (11.5-14.5)
--- NOTE | 2025-04-10 08:21 | W.PN.CD ---
Today's Communication / Plan
-
Continue to hold Eliquis as reports on going brbpr. Will readdress as an op, would consider watchman. She will consider but she isn't very interested.
Post hospital f.u already arranged
Impression / Plan
-
Impression
79yo M with Afib on Eliquis, DM, hypertension, hyperlipidemia, obstructive sleep apnea on CPAP, GERD, Transanal hemorrhoidal dearterialization x 4, bilateral pudendal nerve block on 03/16/25 had continuing bleeding since her procedure and came with
low hgb 5.4. S/P 4 units PRBC this admission and KCentra on 03/30/25. Patient underwent flexible sigmoidoscopy, exam under anesthesia and suture ligation of internal hemorrhoids on 04/02/2025.
#Acute on chronic anemia
Likely due to acute blood loss from the recent GI procedures.
Patient is status post Kcentra at admission
Eliquis restarted after the procedure but was held because of her bleeding issues.
S/p 4 PRBC transfusion this admission.
Hemoglobin at 8.1 today
Transfuse if hemoglobin <7
#Paroxysmal A-fib
Telemetry reviewed
Patient in normal sinus rhythm
EKG with NSR
Due to her recurrent bleeding episodes, patient cannot be resumed back on Eliquis.
Continue to hold Eliquis as reports on going brbpr. Will readdress as an op, would consider watchman. She will consider but she isn't very interested.
Continue with diltiazem, if blood pressures tolerate.
#ANTHONY
Continue CPAP
#Hypertension
Blood pressures look good
Resume diltiazem if she tolerates
#Hyperlipidemia
Continue Crestor
#DM type II, constipation, GERD, insomnia
Continue to manage per primary team
Physical Exam
Vital Signs/Labs
Vital Signs
Temp Pulse Resp BP Pulse Ox
97.9 F 78 20 105/60 98
04/10/25 03:24 04/10/25 03:24 04/10/25 03:24 04/10/25 03:24 04/10/25 03:24
04/10/25 06:55
PT 14.4 Sec (11.4-14.6) 04/02/25 12:39
INR 1.09 04/02/25 12:39
APTT 29.6 Sec (23.4-35.0) 04/02/25 12:39
Magnesium 2.0 mg/dl (1.6-2.3) 04/08/25 04:00
Physical Exam
Constitutional: No acute distress
Cardiovascular: Rhythm & rate is regular, Pedal edema is absent, JVD pressure is normal, Systolic murmur absent and Diastolic murmur absent
Respiratory: Respiratory effort normal, Lungs clear to auscul., Wheeze Absent, Crackles Absent and Rhonchi Absent
Neuro/Psych: AO x 3
Data Reviewed
-
Date of Service: April 10, 2025
Medical Decision Making: Review of Case with other Provider (michelle rod)
[2025-04-10] MEDS: NOVOLOG FLEXPEN-LOW RESISTANCE SC (08:27)
[2025-04-10] MEDS: METAMUCIL, KONSYL 1 PACKET PO (08:27)
[2025-04-10] MEDS: MIRALAX 17 GRAMS PO (08:27)
[2025-04-10] MEDS: PROTONIX 40 MG PO (08:28)
[2025-04-10] MEDS: NSS (PRESERVATIVE FREE) IV (08:28)
[2025-04-10] MEDS: COLACE 100 MG PO (08:28)
[2025-04-10] MEDS: VITAMIN D3 (cholecalciferol) 50 MCG PO (08:28)
[2025-04-10] MEDS: MYRBETRIQ EXTENDED RELEASE 50 MG PO (08:28)
[2025-04-10] MEDS: HYDROCORTISONE 2.5% CREAM 1 APPLIC TOPICAL (09:23)
[2025-04-10 09:58] LABS: Blood Urea Nitrogen 16 mg/dl (7-17); Calcium 8.5 mg/dl (8.4-10.2); Carbon Dioxide 30 mmol/L (22-30); Chloride 104 mmol/L (98-107); Estimated Creatinine Clearance 79 ml/min; Glucose 141 mg/dl (70-99); Potassium 4.4 mmol/L (3.5-5.1); Sodium 137 mmol/L (135-145); eGFR > 60.00
--- NOTE | 2025-04-10 10:06 | W.PN.CRS1 ---
Today's Communication / Plan
-
hold eliquis
okay d/c from surgical perspective
Assessment/Plan
-
79 yo female on Eliquis presenting for rectal bleeding and anemia after undergoing a 4 column THD on 03/16/2025. s/p KCentra on 03/30
POD 8 flex sig, EUA, suture ligation of bleeding hemorrhoid x2
s/p 4 units of pRBC's, last transfusion was on 04/04
AFVSS
Hgb: 8.1 (8.1, 7.7)
Plan:
-Continue regular diet
-Continue bowel regimen
-Hold all therapeutic AC given recurrent bleeding. Anticipate at least a week. Patient will need to follow up with cardiology for resuming.
-Appreciate cardiology consult: holding Eliquis, follow up in office, ?watchman in future.
-Follow labs
-Okay for discharge from a surgical perspective. Follow up with Dr. Cortez in 1-2 weeks.
Subjective Data
Subjective Data
Date of Service: April 10, 2025
Patient states she is having some intermittent bleeding. Per nursing records, her bowel movements have been brown. She denies nausea or vomiting. Tolerating a diet.
Objective Data
-
Vital Signs
Temp Pulse Resp BP Pulse Ox
97.8 F 57 12 139/83 98
04/10/25 07:00 04/10/25 07:00 04/10/25 07:00 04/10/25 07:00 04/10/25 07:00
Intake & Output
04/09/25 04/10/25 04/11/25
06:59 06:59 06:59
Intake Total 480 / 480 0 / 0
Balance 480 / 480 0 / 0
Intake:
Oral fluids 480 / 480 0 / 0
Other:
Number of approximated MODERATE 1 3
amounts of urine
Lab Results
04/10/25 06:55
04/10/25 06:55
Physical Exam
-
General: No Acute Distress and AOx3
Abdomen: Soft, Non Distended and Non Tender
Skin: Warm and Dry
--- NOTE | 2025-04-10 10:42 | W.PN.HOSP.TC ---
Today's Communication/Plan
-
Discharge today
Assessment / Plan
Assessment / Plan
Physical Exam
General: No Apparent Distress
HEENT: Normocephalic
GI: Soft, Nontender and Nondistended. Positive bowel sounds.
Neuro: Awake, Alert, Oriented and AO x 3
Psych: Calm
Assessment/Plan
79 y/o male with PMHX of insomnia, Afib on Eliquis, LAVINIA, DM, HLD, GERD, Transanal hemorrhoidal dearterialization x 4, bilateral pudendal nerve block on 03/16/25 had continuing bleeding since her procedure and came with low hgb 5.4 status post 3 units
PRBC on admission and KCentra on 03/30/25
#Acute blood loss anemia 2/2 lower GIB exacerbated by Eliquis and possibly due to recent internal hemorrhoids dearterialization
Non-painful, bright red blood per rectum, no concern for UGIB or small bowel bleed.
Colorectal Sx: did flexible sigmoidoscopy after Eliquis washout on 04/02/25 (two superficial ulcers on internal hemorrhoids suture ligation of bleeding internal hemorrhoids x2)- Eliquis resumed on 04/06/25 -- bleeding took place again -- Eliquis held
again
-Per cardiology: on discharge, stop Eliquis, plans to discuss outpatient the possibility of Watchman Device
-Colorectal surgery consulted cardiology for further guidance: continue holding Eliquis, consider outpatient Watchman Device
Patient previously had discussion with GI Dr. Hernandez about GIB, since it started back in September [place]icle [place] was traveling to [place]. As per patient - COlorectalSx and GI communicated and bleeding deemed to be from hemorrhoidal source. Current episode
of prolonged postOP bleeding also discussed with COlorectalSx, who is positive that bleeding is from internal hemorrhoids and postOP stitching.
-At this point, based on patient's description of the amount of bleeding and the Hgb remaining stable, colorectal surgery recommends against repeat surgery as she is still healing from her initial THD; if she requires redo surgery, ideally would
wait another 2 to 3 weeks (per colorectal surgery)
-Follow up with Dr. Cortez of colorectal surgery in 1-2 weeks.
-Continue Diabetic Diet and Fiber twice daily
-Serial Hgb
-transfuse to keep >7
-status post Kcentra
#Paroxysmal Afib
Eliquis was resumed on 04/06/25, but held again on 04/07/25, given recurrence of bleeding
Telemetry
HR control: if on outpatient basis, patient's blood pressure tolerates it, then continue with Diltiazem
#DM type 2 with unspecified complications
Accuchecks, Insulin SS, DM diet
hold oral hypoglycemics
#Constipation
-Continue MiraLAX daily and Colace twice daily
#HLD
#GERD
#Urinary urgency
#Insomnia
cont home meds
#ANTHONY
cont CPAP at night
#Morbid obesity
BMI 44.0
advise to decrease calorie intake
DVT Prophylaxis: SCDs
Code Status: Full code
More than 30 minutes spent in discharge including
Final examination of the patient
Summarizing hospital stay
Instructions for continuing care to all relevant caregivers
Preparation of discharge records, prescriptions, and referral forms
Total time spent (in minutes): 42
Anticipated Discharge: Today
Subjective/Interval History
-
Date of Service: April 10, 2025
Patient was seen and examined. She reported continued rectal bleeding episodes. She denied dizziness, SOB or any other complaints.
Objective Data
-
Labs:
Laboratory Results
04/10/25
06:55
WBC 4.5 L
Hgb 8.1 L
Hct 26.5 L
Plt Count 194
Sodium 137
Potassium 4.4
Chloride 104
Carbon Dioxide 30
BUN 16
Creatinine 0.6
Glucose 141 H
Calcium 8.5
Vital Signs:
Vital Signs
Temp Pulse Resp BP Pulse Ox
97.8 F 57 12 139/83 98
04/10/25 07:00 04/10/25 07:00 04/10/25 07:00 04/10/25 07:00 04/10/25 07:00
I&O
04/09/25 04/10/25 04/11/25
06:59 06:59 06:59
Intake Total 480 / 480 0 / 0
Balance 480 / 480 0 / 0
[2025-04-10 11:00] VITALS: BP 125/71
[2025-04-10 11:33] LABS: Glucose - Point of Care 167 mg/dl (70-99)
[2025-04-10] MEDS: NOVOLOG FLEXPEN-LOW RESISTANCE 1 UNITS SC (12:33)
[2025-04-10] MEDS: TYLENOL 1000 MG PO (12:38)
--- NOTE | 2025-04-10 14:38 | CM ---
MD indicated patient ready for discharge.
Spoke with patient in room . IMM reviewed and agreed with marcela ortega.
Offered VN she declined VN
Demond will drive her home.
PLAN Home no needs
[2025-04-10 15:00] VITALS: BP 133/75
[2025-04-10 16:15] LABS: Glucose - Point of Care 161 mg/dl (70-99)
--- NOTE | 2025-04-10 16:40 | W.DCSUMMARY ---
Discharge Summary
Discharge Data
Date of Admission: 03/29/25
Date of Discharge: 04/10/25
Total time spent discharging patient (in min): 42
-
Pending Results: No
Hospital Course
79-year-old female with past medical history significant for hemorrhoids, paroxysmal atrial fibrillation (on Eliquis), hypertension, hyperlipidemia, type II diabetes mellitus and GERD who presented to [facility] ED for evaluation of abnormal out patient
labs, as well as fatigue and dyspnea on exertion. Patient reported that she had been having issues with rectal bleeding since September 2024, which started when she was in [place] for several months. She stated bleeding had been just about daily since
then. She was seen in an ER in [place] and they reported that she was not anemic, and they discharged her. When she returned [place] the [place] in November 2024 she made appointments to be seen when Colorectal Surgery and they mentioned that they believed that
patient's bleeding was coming from internal hemorrhoids and offered surgery to gain control of bleeding. Transanal hemorrhoidal dearterialization x [address] Cortez on 03/16/2025. She reported that bleeding had not subsided post surgery.
She was seen by primary care who sent her for Hgb 6 on outpatient labs and symptomatic anemia. In the ER, other than bloody stools, she denied any other significant symptoms or complaints. Patient's hemoglobin in the emergency room was found to be
5.4. Patient received 2 units of red blood cells initially, but ended up receiving a total of 4 units of red blood cells during her hospitalization. Patient's Eliquis was held and colorectal surgery was consulted. Patient received KCentra given
continued bleeding episodes. Patient's home Cardizem was held. Given that patient continued to have bleeding despite reversal agent, on April 02, 2025, patient had flexible sigmoidoscopy, exam under anesthesia, and suture ligation of bleeding
internal hemorrhoids x2. Fiber was added to patient's medications. Patient was started on subq Heparin. Patient had bleeding again. Eliquis was restarted as the bleeding later appeared to be improving. Eliquis had to be held again given bleeding.
Colorectal surgery team consulted cardiology who recommended outpatient evaluation for Watchman Device. Colorectal surgery mentioned that if patient needs a re-do surgery, would wait another 2 to 3 weeks to allow healing from the surgery this
hospitalization. Patient continued to have some bleeding episodes but hemoglobin remained stable. After discussion with colorectal surgery and stone sawyer, it was determined patient was stable for discharge with close outpatient follow-up.
Discharge Plan
-
Patient Disposition: Home (Routine Discharge)
Discharge Diagnosis/Procedures: Presentation for rectal bleeding and anemia after undergoing a 4 column THD on 03/16/2025 status post KCentra on 03/30/25 in the hospital
Status post flexible sigmoidoscopy, EUA, suture ligation of bleeding hemorrhoid x2
Status post 4 units of PRBCs
Paroxysmal Atrial Fibrillation
Type 2 Diabetes Mellitus
Constipation
Hyperlipidemia
GERD
Urinary urgency
Insomnia
ANTHONY
Morbid obesity
Condition: Fair
Diet: Low Fat, Low Cholesterol and Diabetic, Carb Controlled
Activity: As tolerated
Blood Work: CBC, CMP and Magnesium with your outpatient primary care provider in 2 to 3 days.
Activity Restrictions/Additional Instructions:
You will need to get refills of your medications from your outpatient doctor(s).
Referrals:
Sana Castellanos CRNP [Specified Professional Personl, Cardiology] - 05/04/25 10:40 am
Oj Cortez MD [Active, ColoRectal] - in one to two weeks
Leonor Griffin MD [Active, Family Practice] - in less than 1 week
Referral Note: Hospitalization follow-up. Will need CBC, CMP and Magnesium checked.
Additional Discharge Medication Instructions: Discuss with your outpatient providers when you can resume your Diltiazem and Glipizide -- these have been held at the time of discharge given that you still have bleeding and reduce the likelihood of
your blood pressure dropping too much and to reduce the likelihood of hypoglycemia.
Eliquis stopped given bleeding.
Prescriptions:
New
docusate sodium 100 mg Capsule
100 mg PO BID Qty: 60 0RF
hydrocortisone 2.5 % Cream
1 applic topical BID Qty: 20 0RF
Rx Instructions:
One application to perianal area
Metamucil Fiber (aspartame) 3.4 gram Powder In Packet
1 packet PO BID Qty: 44 0RF
polyethylene glycol 3350 17 gram Powder In Packet
17 g PO DAILY Qty: 30 0RF
acetaminophen [Tylenol Extra Strength] 500 mg Tablet
1,000 mg PO Q8H Qty: 30 0RF
Continued
cholecalciferol (vitamin D3) [Vitamin D3] 2,000 UNIT capsule
2,000 unit PO DAILY
pantoprazole 40 MG tablet,delayed release (DR/EC)
40 mg PO DAILY
estradiol [Estrace] 0.01 % (0.1 mg/gram) Cream
1 g VAGINAL PRN PRN (Reason: dryness)
amitriptyline 75 mg Tablet
75 mg PO HS
ferrous sulfate 134 mg (27 mg iron) Tablet
134 mg PO DAILY
mirabegron [Myrbetriq] 50 mg Tablet Extended Release 24 Hr
50 mg PO DAILY
rosuvastatin 40 mg Tablet
40 mg PO HS
Held
diltiazem HCl 120 mg Capsule,Ext.Rel 24h Degradable
120 mg PO DAILY
Hold Instructions: Resume on 04/24/25. Please discuss with your primary care provider when you can resume this medication (you can do resume it if your blood pressure tolerates it)
glipizide 2.5 mg Tablet
2.5 mg PO DAILY
Hold Instructions: Resume on 04/24/25. Please discuss with your outpatient primary doctor if and when you should resume this medication.
Discontinued
Eliquis 5 MG tablet
5 mg PO BID Qty: 0 0RF
Discharge Orders:
Discharge Patient (As Directed); Ordered 04/10/25
Ordered By: Cuba Lemos
Discharge Date and Time
Discharge Date/Time: 04/10/25 18:12
Print Language: [place]
== END 2025-04-10 18:12 | disposition home or self-care (01) | DRG 920 ==
LOC: 4 EAST ACU 18:34
PROVIDERS: Internal Medicine; Nurse Practitioner Family; Registered Nurse; Surgery; ADMITTING PHYSICIAN Hospitalist; CONSULT PHYSICIAN Surgery; EMERGENCY PHYSICIAN Emergency Medicine; OTHER PHYSICIAN Internal Medicine Cardiovascular Disease
PROC: 5A09357 Assistance with Respiratory Ventilation, Less than 24 Consecutive Hours, Continuous Positive Airway Pressure (ICD-10-PCS; 2025-03-29)
PROC: 30233N1 Transfusion of Nonautologous Red Blood Cells into Peripheral Vein, Percutaneous Approach (ICD-10-PCS; 2025-03-29)
PROC: 0W3P8ZZ Control Bleeding in Gastrointestinal Tract, Via Natural or Artificial Opening Endoscopic (ICD-10-PCS; 2025-04-02)
DX: K91.840 Postprocedural hemorrhage of a digestive system organ or structure following a digestive system procedure (principal); D62 Acute posthemorrhagic anemia; K62.5 Hemorrhage of anus and rectum; D68.32 Hemorrhagic disorder due to extrinsic circulating anticoagulants; K64.8 Other hemorrhoids; I48.0 Paroxysmal atrial fibrillation; Z79.01 Long term (current) use of anticoagulants; E11.9 Type 2 diabetes mellitus without complications; G47.00 Insomnia, unspecified; K21.9 Gastro-esophageal reflux disease without esophagitis; E78.00 Pure hypercholesterolemia, unspecified; Z90.49 Acquired absence of other specified parts of digestive tract; G47.33 Obstructive sleep apnea (adult) (pediatric); I10 Essential (primary) hypertension; K59.00 Constipation, unspecified; Z79.84 Long term (current) use of oral hypoglycemic drugs; Z79.899 Other long term (current) drug therapy; Z96.651 Presence of right artificial knee joint; Z86.0100 Personal history of colon polyps, unspecified; Y83.8 Other surgical procedures as the cause of abnormal reaction of the patient, or of later complication, without mention of misadventure at the time of the procedure; T45.515A Adverse effect of anticoagulants, initial encounter
CPT/HCPCS: 36430; 71046; 80048; 80053; 82962; 83036; 83735; 84100; 85014; 85018; 85025; 85027; 85610; 85730; 86850; 86900; 86901; 86920; 93005; 94660; 99285; J7168; P9016